=== PATIENT | male | born 1960 | race African-American/Black ===

== ENCOUNTER 2018-02-05 09:11 | Inpatient (IN) | payer MEDICARE, OTHER ==
[2018-02-05] MEDS ORDERED: Furosemide 40 MG/4 ML VIAL ONE (10:05)
--- NOTE | 2018-02-05 10:19 | RAD ---
CHEST ONE VIEW: History: Congestive heart failure. Comparison: 08-19-16 FINDINGS: Heart size is enlarged. Mild venous congestion. No pneumothorax. No acute osseous abnormality. IMPRESSION: Cardiomegaly with mild pulmonary venous congestion. POS: [facility]
[2018-02-05 10:23] LABS: #Basophils 0.1 thou/uL (0.0-0.2); #Eosinphils 0.5 thou/uL (0.0-0.7); #Lymphocytes 1.4 thou/uL (1.20-3.40); #Monocytes 0.5 thou/uL (0.11-0.59); #Neutrophils 3.7 thou/uL (1.40-6.50); %Basophils 1.1 % (0.0-1.0); %Eosinophils 7.7 % (0.0-10.0); %Lymphocytes 23.2 % (21.0-51.0); %Monocytes 8.2 % (0.0-10.0); %Neutrophils 59.8 % (42.0-75.0); Hemoglobin 11.7 g/dL (14.0-18.0); Mean Corpuscular HGB CONC 31.1 g/dL (32.0-36.0); Mean Corpuscular Hemoglobin 28.7 pg (27.0-31.0); Mean Corpuscular Volume 92.4 fL (78.0-98.0); Mean Platelet Volume 8.3 fL (7.4-10.4); Platelet Count 244 thou/uL (130-400); RBC Distribution Width 15.6 % (11.5-14.5); Red Blood Cell (RBC) Count 4.07 mill/uL (4.70-6.10); White Blood Cell (WBC) Count 6.2 thou/uL (4.8-10.8)
[2018-02-05 10:29] LABS: ALT (SGPT) 12 U/L (8-55); AST (SGOT) 23 U/L (5-34); Albumin 3.1 g/dL (3.5-5.0); Alkaline Phosphatase 168 U/L (40-150); Anion Gap 15 mmol/L (10-20); BUN (Urea Nitrogen) 22 mg/dL (8.4-25.7); Bilirubin, Total 1.1 mg/dL (0.2-1.2); Calc. Creatinine Clearance 0 mL/min (70-130); Carbon Dioxide 22 mmol/L (22-29); Chloride 102 mmol/L (98-107); Estimated GFR-MDRD Greater than 90; Globulin 5.8 g/dL (2.4-3.5); Glucose 95 mg/dL (70-105); Protein, Total 8.9 g/dL (6.0-8.3); Sodium 134 mmol/L (136-145)
[2018-02-05] MEDS ORDERED: Ondansetron PF 4 MG/2 ML Vial ONE (11:49)
[2018-02-05] MEDS ORDERED: Morphine 4 MG/ML VIAL ONE ×2 (11:51→13:19)
--- NOTE | 2018-02-05 12:45 | ULT ---
BILATERAL TESTICULAR ULTRASOUND WITH GRAYSCALE, COLORFLOW, AND SPECTRAL DOPPLER IMAGING: HISTORY: Testicular pain and swelling. FINDINGS: The right testis measures 3.4 x 2.5 x 2.4 cm, and the left testis measures 3.9 x 2.8 x 2.[address] sticular mass is seen. No flow is demonstrated to the right testis. Flow is demonstrated to the lef t testis. An associated small right hydrocele is present. Flow is demonstrated to both epididymides. The epididymides appear enlarged and have a heterogeneous echotexture. There is a well circumscribed, complex area in the right epididymis, measuring 3 x 2.9 x 2.7 cm. There is edema of the skin of the scrotum. IMPRESSION: 1. Absence of flow to the right testis, consistent with torsion. 2. Bilaterally enlarged and heterogeneous epididymides with a circumscribed, complex area in the rig ht epididymis, measuring 3 x 2.9 x 2.7 cm. 3. Urologic consultation is recommended. Discussed over the telephone with ER physician, Dr. Maco Moreno, at 12:18 p.m. CODE CR POS: [facility]
[2018-02-05] MEDS ORDERED: Ondansetron PF 4 MG/2 ML Vial IVP PRN (12:49)
[2018-02-05] MEDS ORDERED: Ondansetron ODT 4 MG TAB PO PRN (12:49)
[2018-02-05] MEDS ORDERED: Calcium Carbonate 500 MG ChewTAB PO PRN (12:49)
[2018-02-05] MEDS ORDERED: Acetaminophen 325 MG TAB PO PRN (12:49)
--- NOTE | 2018-02-05 13:31 | HP ---
PRIMARY CARE PHYSICIAN: None. PRIMARY RECEIVER DISPATCHER: Dr. Antonio. CHIEF COMPLAINT: Increased scrotal swelling/pain, shortness of breath, and lower extremity edema. HISTORY OF PRESENT ILLNESS: The patient is a 57-year-old male with chronic systolic heart failure with recent exacerbation at [facility], presented to the emergency room with the above symptoms. Over the last 1 to 2 months, the patient noticed increased shortness of breath along with scrotal swelling. His symptoms are progressively getting worse. He is unable to lie down flat. He also noticed lower extremity swelling. There was some cough, which was essentially nonproductive. No fever or chills reported. He denies any chest pain, palpitations, lightheadedness, or syncope. He states that he is compliant with fluid restriction; however, he does not monitor his weight on a daily basis. He thinks that he has gained approximately 30 to 40 pounds over the last few weeks. He is compliant with all of his medications over the last two years per the patient report. He is on Lasix 40 mg twice a day along with Entresto, Aldactone , and carvedilol. In the emergency room, initial vital signs showed temperature of 97.4, respirations 16, blood pressure of 133/94, pulse rate 82. He currently has 10/10 scrotal pain. PAST MEDICAL HISTORY: 1. Chronic systolic heart failure, ejection fraction 20% to 25% in the past. 2. Hypertension. 3. Diabetes mellitus type 2. 4. Mild coronary artery disease on the last cardiac cath in May of [address] Regan. PAST SURGICAL HISTORY: 1. Right inguinal hernia repair at [facility] 3 weeks ago. 2. Paracentesis. ALLERGIES: THE PATIENT IS ALLERGIC TO PENICILLIN. CURRENT HOME MEDICATIONS: 1. Carvedilol 6.25 mg b.i.d. 2. Metformin 500 mg daily. 3. Entresto 1/2 tablet twice a day. 4. Lasix 40 mg b.i.d. 5. Aldactone 25 mg daily. 6. Aspirin 81 mg daily. SOCIAL HISTORY: He is a former tobacco user. He currently lives at home with his family. He drinks alcohol socially. Denies any history of withdrawal. He denies daily drinking. No drug use. FAMILY HISTORY: Negative for premature coronary artery disease. REVIEW OF SYSTEMS: All other review of systems was reviewed and were found negative. PHYSICAL EXAMINATION: VITAL SIGNS: As discussed above. GENERAL: A 57-year-old male, in mild distress due to scrotal pain as well as shortness of breath. HEENT: Head, atraumatic and normocephalic. Sclerae anicteric. Moist mucous membranes. No oral lesion. NECK: Supple. JVD elevated. No carotid bruit. LUNGS: Showed decreased air entry at bilateral bases with bibasilar rales, scattered rhonchi. No wheezing appreciated. There was mild accessory muscle use. HEART: S1 and S2 present. Regular rate and rhythm, 2/6 systolic murmur over the mitral area. No heaves or pulsation. ABDOMEN: Obese, soft with shifting dullness. EXTREMITIES: 2+ edema in bilateral lower extremities. GENITOURINARY: There is generalized scrotal swelling along with tenderness on palpation. No significant erythema noted. SKIN: Warm and dry. LYMPH NODES: No palpable lymph nodes in the neck. NEUROLOGIC: Grossly nonfocal. Moves all 4 extremities. PSYCHIATRY: Alert, awake, and oriented x3. LABORATORY DATA: CBC showed WBC of 6.2 with hemoglobin 11.7, hematocrit 37.6, and platelet of 244. Chemistry showed sodium 134, potassium 5, chloride 102, bicarbonate 22, BUN 22, creatinine 0.91. BNP 2281. Albumin 3.1, total protein 8.9. DIAGNOSTIC DATA: 1. Chest x-ray by my review showed pulmonary vascular congestion with cardiomegaly. 2. EKG by my review showed sinus rhythm with nonspecific ST-T wave changes. 3. I just received a call from the ER physician stating that the scrotal ultrasound showed no flow to the right testicle. IMPRESSION: 1. Acute on chronic systolic heart failure exacerbation. ACC stage C 2. Significant volume overload. 3. Testicular torsion. 4. Mild coronary artery disease in the last cardiac catheterization in 2016. 5. Former tobacco user. 6. History of cocaine abuse in the past. 7. Chronic alcohol use. 8. Diabetes mellitus type 2. 9. Hypertension. 10. Penicillin allergy. 11. Normochromic normocytic anemia, probably chronic. PLAN: The patient will be monitored on the Telemetry Unit. Vital signs q.4 hourly. IV diuretics. Fluid restriction. Cardiology consultation in a.m. Serial troponins. We will resume selected home medications. Urology consultation. Heart failure education. Plan of care was discussed with the patient in detail. He stated understanding. Job ID: [id number] [facility]
[2018-02-05] MEDS ORDERED: Furosemide 40 MG/4 ML VIAL SLOW IVP SCH (14:00)
[2018-02-05] MEDS: Furosemide 40 MG/4 ML VIAL SLOW IVP SCH ×2 (17:02→21:06)
[2018-02-05 17:56] LABS: Bilirubin Negative (Negative); Blood, Urine Trace (Negative); Clarity CLEAR (Clear); Glucose, Urine (Dipstick) Negative (Negative); Leukocyte Negative (Negative); Nitrite Negative (Negative); Protein, Urine (Dipstick) Trace mg/dL (Neg-Trace); Specific Gravity, Urine 1.011 (1.002-1.036)
[2018-02-05 18:07] LABS: Amphetamine Not Detected (NotDetected); Barbiturates Screen Not Detected (NotDetected); Benzodiazepine Screen Not Detected (NotDetected); Cocaine Metabolite Screen Not Detected (NotDetected); Medtox Control Line Valid? VALID (VALID); Medtox Reader # READER 1; Methadone Not Detected (NotDetected); Methamphetamine Not Detected (NotDetected); Opiate Screen Detected (NotDetected); Oxycodone Screen Not Detected (NotDetected); Phencyclidine (PCP) Not Detected (NotDetected); THC/Cannabinoid Screen Not Detected (NotDetected); Tricyclic Screen Not Detected (NotDetected)
[2018-02-05 18:09] LABS: Bacteria/HPF None Seen HPF (None Seen); Hyaline Casts/LPF 4-6 HYALINE CAST LPF (0-3 Hyaline); Pathc Cast-AUWi Flag 1.01 (0-2.49); RBC/HPF 0-3 HPF (0-3); Squamous Epithelial None Seen HPF (0-3); WBC/HPF 0-3 HPF (0-3)
--- NOTE | 2018-02-05 20:52 | CON ---
DATE OF CONSULTATION: 02/05/2018 REASON FOR CONSULT: Scrotal swelling. HISTORY OF PRESENT ILLNESS: Mr. Shelby is a 57-year-old male with history of hepatitis B, alcohol abuse, diabetes, history of cocaine abuse, CHF, who presents for evaluation of bilateral scrotal discomfort, mostly Left .The patient presents with his . He states that he underwent right inguinal hernia repair at [facility], in which they do not recall the name of the physician approximately three weeks ago. Subsequently, the patient has had scrotal swelling. Relates that the size of the scrotum was approximately half the size as he presents with on today's exam. Due to progressive swelling resulting in scrotal discomfort he presents to the emergency room. relates that he was told by the surgeon who performed inguinal hernia surgery that he is very high risk for anesthesia. Of note, relates that his scrotal swelling has been presenting enlargements previously with exacerbation of CHF, which usually resolves with aggressive diuresis. He states that there is left scrotal discomfort more than right. He denies sensation of incomplete void, however, has been urinating into his scrotal penile skin as there is significant penile scrotal edema consistent with CHF/anasarca. He denies prior history of gross hematuria, recurrent UTI. Records from his prior admission reviewed which he was admitted in May 2015. He was found to have severe CHF with EF of 25%, found to have hepatitis B with history of cirrhosis, his RPR, hepatitis, hepatitis C panel is negative. His chest x-ray does show cardiomegaly and has previously seen Dr. Regan. Workup on this admission through the ER demonstrates normal white count. Creatinine is normal. He is afebrile with no evidence of toxic or septic parameters. He is currently resting comfortably, however, has discomfort on palpation of the scrotum. A scrotal ultrasound was obtained by ER physician demonstrating no significant flow to the right testis. He denies having pain in his right scrotum testicular region. Most of this discomfort is related to the swelling due to anasarca, scrotal edema. PAST MEDICAL HISTORY: Includes diabetes, poorly controlled. History of CHF with EF of 20% to 25%, history of cocaine abuse, cirrhosis, hepatitis, type 2 diabetes, alcohol abuse, history of pleural effusion, hypoxia, hypertension, history of cocaine abuse. PAST SURGICAL HISTORY: Recent right inguinal hernia repair in December 2017 at [facility]. ALLERGIES: ALLERGIC TO PENICILLIN. REVIEW OF SYSTEMS: A 10-point review of systems as above, he is currently with his , history of substance abuse, cocaine. PHYSICAL EXAMINATION: VITAL SIGNS: 131/96, 84, 16, 97%. GENERAL: The patient appears to be in no acute distress. HEENT: Grossly unremarkable. HEART: Rate is regular. LUNGS: Distant. ABDOMEN: Morbidly obese, protuberant. There is evidence of pitting edema along his lower back flank consistent with diffuse anasarca. : Demonstrates significant scrotal and penile edema consistent with anasarca. The testes are unable to palpated due to degree of pitting edema. There is no evidence of skin breakdown, cellulitis, erythema, fluctuance consistent with Carlotta gangrene. I am unable to reduce the foreskin despite manual decompression of the lymphedema. EXTREMITIES: Demonstrate bilateral pitting edema with venous stasis changes. ALE suboptimal with no gross nodularity or induration. LABORATORY DATA: Pertinent labs; 1. White count 6, hemoglobin 11, platelet 244. Creatinine is 0.9. Hemoglobin A1c from May 2015 is 10.5. INR on September 04 is 1.4. Prior urine culture demonstrating Staph aureus with UA in May 2015 demonstrating 100 protein, 11 to 20 rbc's. 2. History of hepatitis B antigen positive, hepatitis C, RPR, hepatitis negative. 3. Scrotal ultrasound. Absence of flow to the right testis. Flow is present on the left. There is a small right hydrocele. There is a complex right epididymal cyst measuring 3 x 2.9 x 2.7 cm with no evidence of scrotal, testicular epididymal abscess at this time. IMPRESSION AND PLAN: Mr. Shelby is a 57-year-old male with morbid obesity with past medical history. 1. Diabetes. 2. History of severe congestive heart failure with EF of 25%. 3. History of cocaine abuse, likely cardiomyopathy. presents with scrotal swelling/ discomfort scrotal ultrasound demonstrating no significant flow to the right testis. Timeline is such that I cannot completely exclude compromise of blood flow compounded by right inguinal hernia repair, significant scrotal edema resulting from anasarca due to congestive heart failure resulting in further vascular compromise. As he has significant penile and scrotal pitting edema consistent with anasarca, I do recommend cardiac consultation, aggressive diuresis, and strict control of his diabetes. I informed the patient that he is very high risk for surgery given his comorbidities. Moreover, wound complication is of significant concern. 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 torsion in this patient population would be extremely rare, and unlikely. Indications for surgical exploration, orchiectomy reviewed. Due to chronic nature, salvage orchidopexy not advised. Removal of avascularity testes would be performed to prevent infertility due to antisperm body formation , or chronic pain of concern. He is in full understanding the repercussions of natural history of progression that there will be resulting in testicular atrophy.. If there is life-threatening infection concerning surgery would be rediscussed. At this time, due to his comorbidities, significant wound complication in which he will require chronic wound VAC with prolonged wound drainage due to lymphedema. Risks and complications of procedure reviewed and the patient declines surgical intervention. I did spend significant amount of time trying to pass a Simpson catheter as he needs aggressive diuresis and he has been urinating into his scrotal penile skin. It required two nurse manual reduction to assist putting a Simpson catheter in. I attempted to decompress this lymphedema without avail. Therefore, we used a speculum, in which I would visualize his glans meatus and a 16-Wolof coude was finally able to be passed. Once in the urethra , I had no problems putting in the catheter with postvoid residual minimal at 100 mL of concentrated yellow urine. This was attached to gravity bag, which he tolerated. UA, C and S sent. Recommend empiric antibiotic therapy i.e. Levaquin. I recommend cardiac rehab, consultation, diurese aggressively with strict control of diabetes. If he has no evidence of infection compromise, conservative observation would be the best approach in this comorbid patient. Job ID: [id number] [facility]
[2018-02-05] MEDS: Senokot S 8.6-50 MG TAB PO SCH (21:06)
[2018-02-05] MEDS: Carvedilol 3.125 MG TAB PO SCH (21:06)
[2018-02-05] MEDS: HYDROcodone/Acetaminophen 5/325 mg Tablet PO PRN (21:11)
[2018-02-06] MEDS: HYDROcodone/Acetaminophen 5/325 mg Tablet PO PRN ×3 (03:32→16:36)
[2018-02-06 03:51] VITALS: BMI 32.8
[2018-02-06 05:42] LABS: #Eosinphils 0.4 thou/uL (0.0-0.7); #Lymphocytes 1.1 thou/uL (1.20-3.40); #Monocytes 0.5 thou/uL (0.11-0.59); #Neutrophils 3.8 thou/uL (1.40-6.50); %Basophils 0.4 % (0.0-1.0); %Eosinophils 7.5 % (0.0-10.0); %Lymphocytes 18.5 % (21.0-51.0); %Monocytes 8.8 % (0.0-10.0); %Neutrophils 64.9 % (42.0-75.0); Hemoglobin 10.7 g/dL (14.0-18.0); Mean Corpuscular HGB CONC 30.9 g/dL (32.0-36.0); Mean Corpuscular Hemoglobin 28.3 pg (27.0-31.0); Mean Corpuscular Volume 91.7 fL (78.0-98.0); Mean Platelet Volume 8.2 fL (7.4-10.4); Platelet Count 223 thou/uL (130-400); RBC Distribution Width 15.5 % (11.5-14.5); Red Blood Cell (RBC) Count 3.78 mill/uL (4.70-6.10); White Blood Cell (WBC) Count 5.8 thou/uL (4.8-10.8)
[2018-02-06 05:56] LABS: ALT (SGPT) 9 U/L (8-55); AST (SGOT) 15 U/L (5-34); Albumin 2.5 g/dL (3.5-5.0); Alkaline Phosphatase 137 U/L (40-150); Anion Gap 10 mmol/L (10-20); BUN (Urea Nitrogen) 25 mg/dL (8.4-25.7); Bilirubin, Total 0.9 mg/dL (0.2-1.2); Calc. Creatinine Clearance 123 mL/min (70-130); Calcium 8.2 mg/dL (7.8-10.44); Carbon Dioxide 31 mmol/L (22-29); Chloride 101 mmol/L (98-107); Estimated GFR-MDRD Greater than 90; Globulin 4.6 g/dL (2.4-3.5); Glucose 84 mg/dL (70-105); Magnesium 1.8 mg/dL (1.6-2.6); Potassium 4.3 mmol/L (3.5-5.1); Protein, Total 7.1 g/dL (6.0-8.3); Sodium 138 mmol/L (136-145)
[2018-02-06] MEDS: Furosemide 40 MG/4 ML VIAL SLOW IVP SCH ×3 (06:20→21:20)
--- NOTE | 2018-02-06 07:30 | CON ---
DATE OF CONSULTATION: 02/05/2018 CARDIOLOGY CONSULT PRIMARY CARE DOCTOR: Unknown. The patient's rn residential is Dr. Antonio. The patient's primary rn residential in [place] is going to be Dr. Regan. REASON FOR CARDIOLOGY CONSULT: Heart failure, congestive heart failure exacerbation. HISTORY OF PRESENT ILLNESS: Mr. Shelby is a 57-year-old -[place] male with significant history of chronic systolic heart failure, hypertension, and diabetes type 2. The patient presented to the emergency department for enlarged and a painful scrotum for 3 days with worsening of shortness of breath, edema in the lower extremities, and distended stomach. The patient was discharged from [facility] about 3 weeks ago for swelling and shortness of breath. The patient underwent paracentesis with 5 liters output. The patient stayed in [facility] for 4 to 5 days and the patient was discharged. Since then, he had not watched his salt and fluid intake. He usually drank 1 gallon of fluid intake with 1 to 3 beers a day. The patient stated that he gained 15 pounds since the patient was discharged from [facility] 3 weeks ago. He has followed up with Dr. Antonio, who is the patient's primary rn residential at the [facility] after the discharged. The patient's Entresto was cut down to half tablet twice a day and Lasix with unknown dosage twice a day. The patient had the last echocardiogram done at Dr. Antonio's office about 3 weeks ago. The patient was told that his heart was more weaker than before, but the patient was not a candidate for defibrillator at that time. At this moment, the patient was very drowsy secondary to morphine administration at the ER to control the pain and management for the enlargement of scrotum. At this moment, the patient denies shortness of breath, palpitation, fluttering in his chest, discomfort, chest pain or any other cardiac complaints. He has swelling in the left arm for 4 weeks. He reports that his arm was swelling since he received IV fluids at the [facility]. He denies any numbness or tingling to the arm. The patient had a cardiac catheterization in May 2015 with mild coronary artery disease with EF of 25% with global hypokinesis, severe hypokinesis in inferior wall. Echocardiogram done in May 2015 shows EF 25% to 30%, dilated left ventricle, dilated left atrium, and a mild mitral valve regurgitation. Echocardiogram was ordered on this admission and the results are pending at this moment. PAST MEDICAL HISTORY: Chronic systolic heart failure, hypertension, diabetes type 2, and history of UTI. PAST SURGICAL HISTORY: Right inguinal hernia repair about 3 weeks ago at [facility], status post paracentesis with 5 L output about 3 weeks ago at [facility]. FAMILY HISTORY: The patient's mother and the siblings has medical history of hypertension and diabetes, but not paternal side. SOCIAL HISTORY: The patient is . The patient has 3 children, who are living well. The patient is an ex-smoker, quit in 2017. He drinks at least 1 to 3 beers almost every day. He is an ex-illicit drug abuser, but quit about 1 year ago. He did cocaine use one time and he mostly used marijuana. Prior to this admission, he had a sedentary lifestyle. ALLERGIES: THE PATIENT IS ALLERGIC TO PENICILLIN. MEDICATIONS: 1. Metformin 500 mg daily. 2. Carvedilol 6.25 mg twice a day. 3. Entresto unknown dosage half tablet twice a day. 4. Aldactone 25 mg once a day. 5. Aspirin 81 mg once a day. REVIEW OF SYSTEMS: A 12-point review of systems negative unless otherwise mentioned in the HPI. PHYSICAL EXAMINATION: VITAL SIGNS: Blood pressure 123/86, temperature 97.6, pulse 77, respiratory rate 16, and O2 sat 98% on room air. GENERAL: The patient is alert and oriented x4, in no acute distress, kind of drowsy secondary to morphine administration for pain management at his scrotum. HEENT: Head; normocephalic, atraumatic. Eyes; extraocular muscle movements are intact. ENT and mouth, oral and nasal mucosa are moist without lesions. NECK: Supple. Normal range of motion. JVD is elevated. RESPIRATORY: Clear to auscultation bilaterally, but diminished at the bases. No wheezing, rhonchi, or rales noted. CARDIOVASCULAR: Regular rate and rhythm. Normal S1, S2. There are no S3 or S4, significant murmurs, heaves, or thrill noted. Carotid pulses are present without bruit or thrill. Non-pitting edema to the left forearm and 3+ pitting edema to the bilateral thigh. ABDOMEN: Very distended, but the bowel sounds are present. SKIN: Warm and dry. Really dry skin in bilateral lower extremities and discoloration. MUSCULOSKELETAL: The patient is unable to move all extremities due to the severe pain to the scrotum. The patient is able to move the upper extremities without any difficulties. PSYCHIATRIC: The patient's mood is very depressed. NEUROLOGIC: The patient is alert and oriented x4, and nonfocal. LABORATORY DATA: WBC 6.2, hemoglobin 11.7, hematocrit 37.6, platelets 244. Sodium 134, potassium 5.0, BUN 22, creatinine 0.91, magnesium 1.7, AST 23, ALT 12, alkaline phosphatase 168. Troponin is negative x2. BNP is more than 2000. Chest x-ray shows cardiomegaly with mild pulmonary congestion. A testicular ultrasound shows absence of flow to right testicle consistent with torsion and bilaterally enlarged heterogeneous epididymis. Urology consult is recommended. ASSESSMENT AND PLAN: 1. Acute on chronic systolic heart failure. The patient's condition is stable at this moment after the patient received Lasix IV. The patient's echocardiogram is pending at this moment. The patient is on Lasix 40 mg IV push every 8 hours with lisinopril 2.5 mg once a day and carvedilol 3.125 mg twice a day, which will be adjusted as appropriate and if the patient can tolerate. When we would like to resume Entresto, we will stop Lisinopril for 36 hours. 2. Scrotal swelling and pain with no flow to the right testicle. Urology consult was already ordered. 3. Hypertension. The patient's blood pressure is stable at this moment with the current medication. 4. Diabetes type 2; He is not on any medication for the diagnosis right now. The patient is going to be on a.c. and bedtime blood glucose checks, which is going to be managed by the patient's primary care doctor. 5. Ex-smoker. Smoking cessation education given to the patient. Thank you for allowing the Cardiology Service to participate in the care of this patient. We will follow along the patient's care team and make further recommendation as appropriate. Job ID: [id number] [facility]
--- NOTE | 2018-02-06 07:36 | CON ---
DATE OF CONSULTATION: 02/05/2018 ADDENDUM: INDICATION FOR CONSULTATION: A 57-year-old gentleman with nonischemic cardiomyopathy with congestive heart failure exacerbation. HISTORY OF PRESENT ILLNESS: This very unfortunate 57-year-old gentleman was seen by Dr. Regan a couple of years ago, underwent cardiac catheterization, was found to have only mild coronary artery disease, was found to have severe cardiomyopathy. He has had worsening of his lower extremity edema. He has chronic edematous changes. He also has significant ascites. He apparently recently underwent a paracentesis, where significant amount of fluid was removed, but he presents at this time complaining of more worsening shortness of breath. I believe he was recently also in the [facility] for evaluation and underwent some diuresis at that time. He has had severe decrease in his left ventricular systolic function and he was seen for further evaluation and treatment here in our facility after being seen in the emergency room and admitted for further treatment. PAST MEDICAL HISTORY: Significant for ischemic and nonischemic cardiomyopathy, hypertension, diabetes. PAST SURGICAL HISTORY: He has no significant surgical history except for what is noted with paracentesis. ALLERGIES: PENICILLIN. MEDICATIONS: Include; 1. Levofloxacin. 2. Lasix 40 mg IV q.8 hours. 3. Aspirin 81 mg a day. 4. Coreg 3.125 mg b.i.d. 5. Lisinopril 2.5 mg daily. 6. He is on Flomax 0.4 mg daily. 7. P.r.n. medications. SOCIAL HISTORY: He did use illicit drug use in the past. He smoked until about a year ago and he said he stopped smoking altogether, once he was sober about 2 to 3 years ago actually at the time of his cardiac catheterization, he said he stopped smoking. He did drink heavily in the past, but now he says he only drinks couple of beers a day and I believe he has not been compliant with his fluid intake either. REVIEW OF SYSTEMS: Mainly, he complains of lower extremity edema, swelling, shortness of breath. Otherwise, he has had no nausea, vomiting, or diarrhea. He has had no complaints from wheezing or recent upper respiratory tract infections. He has had no seizures or syncope. PHYSICAL EXAMINATION: GENERAL: Reveals an elderly gentleman, who is in no acute distress at this time. He is alert. He is oriented. VITAL SIGNS: Show blood pressure 123/86, heart rate 77, he is afebrile, respiratory rate is 16, and O2 saturation 98%. HEENT: Shows head to be normocephalic, atraumatic. Carotid pulses are present. I do not hear any significant bruits. CHEST: Actually appears to be relatively clear to auscultation. I did not hear any rales, rhonchi, or wheezing. CARDIOVASCULAR: Reveals a regular rate and rhythm at this time. There were no significant murmurs, heaves, thrills, bruits, or rubs. ABDOMEN: Shows obesity with ascites. He has some distention. The abdominal wall is tense. EXTREMITIES: Show chronic edema in both lower extremities, at least 2 to 3+. He has chronic changes in the lower legs. I cannot palpate pedal pulses. NEUROLOGICAL: The patient does appear to be intact. SKIN: Warm and dry at this time. LABORATORY DATA: His EKG shows hemoglobin 11.7, platelet count 244,000, WBC of 6.2. Potassium is 5, his sodium is 134. His BNP is 2281, creatinine is 0.91. His chest x-ray did show some mild pulmonary congestion with cardiomegaly. His EKG shows normal sinus rhythm. He apparently also has been found to have a torsion of the right testicle by ultrasound with some edema. IMPRESSION: 1. Acute on chronic systolic and most likely also diastolic heart failure, stage III. He has significant ascites and volume overload with lower extremity edema. 2. History of mild coronary artery disease. This appears to be stable. It is unlikely that he has had any significant progression of his disease. 3. History of illicit drug use in the past, which may be the etiology of his nonischemic cardiomyopathy. 4. History of continued alcohol use. He has been advised at this time to stop drinking altogether. 5. Diabetes. This will be dealt with by the primary care service. 6. History of testicular torsion. Consultation for Urology has been requested. At this time, it appeared that we reduced some of his ascites and lower extremity edema. Apparently, his last ejection fraction was around 20% to 25%. Dr. Regan will resume his care tomorrow. At this time, we will continue to diurese the patient with the above medications. Job ID: [id number]
[2018-02-06] MEDS: Lisinopril 2.5 MG TAB PO SCH (09:06)
[2018-02-06] MEDS: Carvedilol 3.125 MG TAB PO SCH ×2 (09:06→21:15)
[2018-02-06] MEDS: Aspirin 81 mg Enteric Coated Tablet PO SCH (09:06)
[2018-02-06] MEDS: Senokot S 8.6-50 MG TAB PO SCH ×2 (09:06→21:17)
[2018-02-06] MEDS: Tamsulosin HCl 0.4 MG CAP PO SCH (09:06)
--- NOTE | 2018-02-06 11:07 | PRG ---
DATE OF SERVICE: 02/06/2018 SUBJECTIVE: The patient is resting comfortably. Denies scrotal pain, chills, or fever. Resting comfortably, at bedside. Urine draining uneventfully. OBJECTIVE: VITAL SIGNS: Stable. He is afebrile. ABDOMEN: Morbidly obese, protuberant as previous, demonstrating pitting edema of the abdominal musculature consistent with anasarca. : He has a very large scrotal lymphedema due to CHF exacerbation / anasarca. There is some contracture of his left scrotal skin due to diuresis. His scrotum remains very large in size due to pitting edema. There is no gross fluctuance, crepitus, or cellulitic changes of concern. EXTREMITIES: Demonstrate chronic venous stasis changes. PERTINENT LABORATORY DATA: White count 5.8, hemoglobin 10, and platelets 233. Creatinine 0.9. UA is negative. IMPRESSION AND PLAN: Mr. Shelby is a 57-year-old male with past medical history of; 1. Diabetes. 2. Congestive heart failure. 3. History of hepatitis B. 4. Recent right inguinal hernia surgery at [facility]. 5. Presented with bilateral scrotal swelling, consistent with anasarca, scrotal edema due to fluid overload. Although the patient is not in retention, he has been urinating in his prepuce and scrotal skin due to massively enlarged scrotal swelling. He has a Simpson catheter placed by yesterday for anticipated aggressive diuresis as he is on Lasix 40mg q.8. Once his anasarca and scrotal edema have improved , catheter can be removed. If there is persistent swelling, this will most likely stay in- situ for few days, as he is been voiding into his prepuce/genital skin. 6. Right avascular testis. This is likely multifactorial with recent right inguinal hernia surgery, may have had a vascular compromise. Torsion is extremely rare in this age bracket. Given his significant comorbidities, moreover no evidence of septic parameters, conservative observation advised, which the patient agrees. He is in full understanding that he remains a significant surgical risk due to cardiac comorbidities, moreover, nonhealing wound of his scrotum due to significant lymphedema agree requiring prolonged wound VAC. No indication to explore surgically given his age, no issues with infertility, moreover not having any pain in the right scrotum/ testis. Aggressive diuresis is advised. Consider palliative care consult as he has severe congestive heart failure, ejection fraction of 20%. Job ID: [id number] [facility]
--- NOTE | 2018-02-06 14:15 | EKG ---
Test Reason : Blood Pressure : / mmHG Vent. Rate : 081 BPM Atrial Rate : 081 BPM P-R Int : 170 ms QRS Dur : 084 ms QT Int : 394 ms P-R-T Axes : 057 025 106 degrees QTc Int : 457 ms Normal sinus rhythm Low voltage QRS Lateral T wave inversion Abnormal ECG Confirmed by ARYAN DUKE DO ([id number]), assignment editor DAVY MARIO ([id number]) on 02/06/2018 2:14:37 PM Referred By: Confirmed By:ARYAN DUKE DO
--- NOTE | 2018-02-06 15:21 | PDOC.PN ---
- Subjective Encounter Start Date: 02/06/18 Encounter Start Time: 09:30 Patient seen and examined for CHF. SOB improving. No new complaints. No overnight events - Objective Resuscitation Status - Order Detail: 02/05/18 12:49 Resuscitation Status Routine Resuscitation Status: FULL: Full Resuscitation MAR Reviewed: Yes Vital Signs & Weight: Vital Signs (12 hours) Temp Pulse Resp BP Pulse Ox 02/06/18 08:30 96 02/06/18 07:34 93 L 02/06/18 07:30 98.1 F 76 16 125/70 94 L Weight Weight 216 lb 1.6 oz I&O: 02/05/18 02/06/18 02/07/18 06:59 06:59 06:59 Intake Total 768 Output Total 2125 Balance -1357 Result Diagrams: 02/06/18 04:22 02/06/18 04:22 Additional Labs: Accuchecks 02/06/18 02/06/18 02/05/18 10:44 05:45 20:47 POC Glucose 87 84 109 EKG Reviewed by me: Yes (Tele SR) Phys Exam - Physical Examination Constitutional: NAD Respiratory: no wheezing B/L LE rales with dec AE at bases, scat rhonchi Cardiovascular: RRR, no rub Gastrointestinal: soft, non-tender, positive bowel sounds Musculoskeletal: edema present Neurological: moves all 4 limbs Dx/Plan - Plan DVT proph w/lovenox, DVT proph w/SCDs 1. Acute on chronic systolic heart failure exacerbation. ACC stage C 2. Significant volume overload. 3. Testicular torsion. 4. Mild coronary artery disease in the last cardiac cath in 2016. 5. Former tobacco user. 6. History of cocaine abuse in the past. 7. Chronic alcohol use. 8. Diabetes mellitus type 2. 9. Hypertension. 10. Penicillin allergy. 11. Normochromic normocytic anemia, probably chronic. 12. BPH PLAN: Cont IV Lasix Cont Coreg and ACEI Cont Atbx Cont sliding scale Cont current meds as below AM labs Review of Systems - Review of Systems Respiratory: SOB with Excertion. negative: Cough, Dry, Shortness of Breath, Hemoptysis, Pleuritic Pain, Sputum, Wheezing Cardiovascular: edema. negative: chest pain, palpitations, orthopnea, paroxysmal nocturnal dyspnea, light headedness, other Gastrointestinal: negative: Nausea, Vomiting, Abdominal Pain, Diarrhea, Constipation, Melena, Hematochezia, Other - Medications/Allergies Allergies/Adverse Reactions: Allergies Allergy/AdvReac Type Severity Reaction Status Date / Time Penicillins Allergy Verified 05/22/15 04:55 Medications: Current Medications Acetaminophen (Tylenol) 650 mg PO Q4H PRN PRN Reason: Headache/Fever/Mild Pain (1-3) Hydrocodone Bitart/Acetaminophen ([place] 5/325) 1 tab PO Q6H PRN PRN Reason: Moderate Pain (4-6) Last Admin: 02/06/18 09:05 Dose: 1 tab Aspirin (Ecotrin) 81 mg PO DAILY [facility] Last Admin: 02/06/18 09:06 Dose: 81 mg Calcium Carbonate (Tums) 1,000 mg PO Q4H PRN PRN Reason: Heartburn or Indigestion Carvedilol (Coreg) 3.125 mg PO BID [facility] Last Admin: 02/06/18 09:06 Dose: 3.125 mg Furosemide (Lasix) 40 mg SLOW IVP Q8HR [facility] Last Admin: 02/06/18 14:06 Dose: 40 mg Levofloxacin 500 mg/ Device 100 mls @ 100 mls/hr IVPB Q24HR [facility] Last Admin: 02/06/18 14:09 Dose: 100 mls Lisinopril (Zestril) 2.5 mg PO DAILY [facility] Last Admin: 02/06/18 09:06 Dose: 2.5 mg Ondansetron HCl (Zofran Odt) 4 mg PO Q6H PRN PRN Reason: Nausea/Vomiting Ondansetron HCl (Zofran) 4 mg IVP Q6H PRN PRN Reason: Nausea/Vomiting Senna/Docusate Sodium (Senokot S) 2 tab PO BID [facility] Last Admin: 02/06/18 09:06 Dose: Not Given Sodium Chloride (Flush - Normal Saline) 10 ml IVF PRN PRN PRN Reason: Saline Flush Last Admin: 02/06/18 06:21 Dose: 10 ml Tamsulosin HCl (Flomax) 0.4 mg PO DAILY [facility] Last Admin: 02/06/18 09:06 Dose: 0.4 mg
--- NOTE | 2018-02-06 20:28 | PRG ---
DATE OF SERVICE: 02/06/2018 SUBJECTIVE: Mr. Shelby is a 57-year-old gentleman with nonischemic cardiomyopathy, had been seen by Dr. Antonio. Unfortunately, he was unable to get the Entresto. Was admitted with refractory heart failure. He is diuresing moderately now. OBJECTIVE: VITAL SIGNS: His blood pressure 125/70 and pulse 76. LUNGS: Clear. CARDIAC: Normal S1 and normal S2. ABDOMEN: Soft and nontender. EXTREMITIES: Ivqynwaw-ua-cuofbt edema. ASSESSMENT: 1. Nonischemic cardiomyopathy. 2. Continued alcohol intake. 3. Unfortunately, unable to afford the Entresto. PLAN: He is on diuretics along with PHILLY inhibitors and low-dose beta blockers. Repeat echocardiogram for ejection fraction. Prognosis appears poor. He will follow up with Dr. Antonio. Job ID: [id number] MTDD
[2018-02-07] MEDS: HYDROcodone/Acetaminophen 5/325 mg Tablet PO PRN ×4 (00:01→23:43)
[2018-02-07 05:26] LABS: #Eosinphils 0.4 thou/uL (0.0-0.7); #Lymphocytes 1.2 thou/uL (1.20-3.40); #Monocytes 0.6 thou/uL (0.11-0.59); #Neutrophils 4.2 thou/uL (1.40-6.50); %Basophils 0.4 % (0.0-1.0); %Eosinophils 5.9 % (0.0-10.0); %Lymphocytes 19.1 % (21.0-51.0); %Monocytes 8.7 % (0.0-10.0); Hemoglobin 10.7 g/dL (14.0-18.0); Mean Corpuscular HGB CONC 31.3 g/dL (32.0-36.0); Mean Corpuscular Hemoglobin 28.7 pg (27.0-31.0); Mean Corpuscular Volume 91.8 fL (78.0-98.0); Mean Platelet Volume 8.4 fL (7.4-10.4); Platelet Count 222 thou/uL (130-400); RBC Distribution Width 15.2 % (11.5-14.5); Red Blood Cell (RBC) Count 3.72 mill/uL (4.70-6.10); White Blood Cell (WBC) Count 6.4 thou/uL (4.8-10.8)
[2018-02-07 05:44] LABS: ALT (SGPT) 10 U/L (8-55); AST (SGOT) 17 U/L (5-34); Albumin 2.6 g/dL (3.5-5.0); Alkaline Phosphatase 130 U/L (40-150); Anion Gap 13 mmol/L (10-20); BUN (Urea Nitrogen) 28 mg/dL (8.4-25.7); Bilirubin, Total 0.7 mg/dL (0.2-1.2); Calc. Creatinine Clearance 95 mL/min (70-130); Calcium 8.6 mg/dL (7.8-10.44); Carbon Dioxide 30 mmol/L (22-29); Chloride 100 mmol/L (98-107); Estimated GFR-MDRD 76; Globulin 4.7 g/dL (2.4-3.5); Glucose 80 mg/dL (70-105); Magnesium 1.8 mg/dL (1.6-2.6); Potassium 4.3 mmol/L (3.5-5.1); Protein, Total 7.3 g/dL (6.0-8.3); Sodium 139 mmol/L (136-145)
[2018-02-07] MEDS: Furosemide 40 MG/4 ML VIAL SLOW IVP SCH ×3 (05:51→21:20)
[2018-02-07] MEDS: Aspirin 81 mg Enteric Coated Tablet PO SCH (08:54)
[2018-02-07] MEDS: Lisinopril 2.5 MG TAB PO SCH (08:54)
[2018-02-07] MEDS: Carvedilol 3.125 MG TAB PO SCH ×2 (08:54→21:20)
[2018-02-07] MEDS: Tamsulosin HCl 0.4 MG CAP PO SCH (08:54)
[2018-02-07] MEDS: Senokot S 8.6-50 MG TAB PO SCH ×2 (08:54→21:21)
--- NOTE | 2018-02-07 10:04 | PRG ---
DATE OF SERVICE: 02/07/2018 SUBJECTIVE: The patient without complaints, he denies scrotal discomfort, fever , or chills. OBJECTIVE: VITAL SIGNS: Stable. He is afebrile. I's and O's 1320 in and 1950 out. ABDOMEN: Morbidly obese, protuberant, consistent with ascites. : Exam demonstrates as previous significantly edematous scrotum consistent with anasarca. There is some contracture of the scrotal skin consistent with diuresis. Simpson catheter is adequately secured and draining. LABORATORY DATA: Labs today demonstrate no evidence of leukocytosis of concern. Creatinine 1.9 and albumin 2.6. UA demonstrates no evidence of bacteria. Culture demonstrates Staph aureus, pansensitive except to Zosyn. IMPRESSION AND PLAN: Mr. Shelby is a 57-year-old male with past medical history of; 1. Diabetes. 2. Severe congestive heart failure, likely drug-induced, with history of cocaine abuse, significantly depressed ejection fraction 20%, followed by Dr. Antonio. 3. History of hepatitis B. 4. History of right inguinal hernia surgery at [facility]. 5. History of ascites, status post paracentesis of 5 L removed at [facility] 12/2017 6. Urologic issues of bilateral scrotal swelling consistent with anasarca, scrotal edema due to fluid overload. 7. Incidental right avascular testis, likely multifactorial: Recent inguinal surgery, significant ascites, anasarca. Nevertheless, he has no symptoms of toxicity or compromise from avascular right testis. His complaint is scrotal tenderness, mostly on the left at the skin level due to significant edema. I informed the patient again re high risk for surgical intervention. There is no indication to remove his right testicle given chronic avascularity with no evidence of significant pain related to the right testis. Moreover, if surgical intervention, he will most likely have a nonhealing wound in his scrotum due to anasarca, chronic congestive heart failure ascites. Due to severely depressed ejection fraction, it would be prudent to consult Palliative Care. The patient informed and agrees. Patient is not in retention. Simpson catheter may continue until aggressive diuresis, improved scrotal edema. Job ID: [id number] [facility]
[2018-02-07] MEDS ORDERED: Metolazone 5 MG TAB PO SCH (10:15)
--- NOTE | 2018-02-07 11:04 | PRG ---
DATE OF SERVICE: SUBJECTIVE: Mr. Shelby is feeling somewhat better. He is diuresing adequately. He is not short of breath. No chest pain. OBJECTIVE: VITAL SIGNS: The I and O are only -630 mL, his weight is only down a pound, his blood pressure 124/72. LUNGS: Clear. CARDIAC: Normal S1. Normal S2. ABDOMEN: Soft, nontender. EXTREMITIES: Moderate edema. ASSESSMENT: Severe cardiomyopathy, clinically. PLAN: 1. Echocardiogram is pending. 2. Apparently, he is not really diuresing very well. We will review echocardiogram. Add metolazone while in the hospital. He would not go home on metolazone. Job ID: [id number]
[2018-02-07] MEDS ORDERED: Potassium Chloride 20 MEQ TAB PO SCH (20:00)
--- NOTE | 2018-02-07 21:41 | PDOC.PN ---
- Subjective Encounter Start Date: 02/07/18 Encounter Start Time: 13:00 Patient seen and examined for CHF. No new complaints. No overnight events - Objective Resuscitation Status - Order Detail: 02/05/18 12:49 Resuscitation Status Routine Resuscitation Status: FULL: Full Resuscitation MAR Reviewed: Yes Vital Signs & Weight: Vital Signs (12 hours) Temp Pulse Resp BP BP Pulse Ox 02/07/18 16:13 97.9 F 78 17 101/70 99 02/07/18 15:45 98.0 F 71 16 114/71 98 02/07/18 11:52 98.1 F 74 16 113/71 97 Weight Weight 215 lb 14.4 oz I&O: 02/06/18 02/07/18 02/08/18 06:59 06:59 06:59 Intake Total 768 1320 460 Output Total 0480 1950 1400 Balance -1357 -630 -940 Result Diagrams: 02/08/18 04:17 02/08/18 04:17 Additional Labs: Accuchecks 02/07/18 02/07/18 02/07/18 17:01 11:15 05:43 POC Glucose 94 102 70 EKG Reviewed by me: Yes (Tele SR) Phys Exam - Physical Examination Constitutional: NAD Respiratory: no wheezing, no rhonchi Cardiovascular: RRR, no rub Gastrointestinal: soft, non-tender, positive bowel sounds Musculoskeletal: edema present Neurological: non-focal Dx/Plan - Plan DVT proph w/lovenox, DVT proph w/SCDs 1. Acute on chronic systolic heart failure exacerbation. ACC stage C 2. Significant volume overload. 3. Avascular Rt testis. 4. Mild coronary artery disease in the last cardiac cath in 2016. 5. Former tobacco user. 6. History of cocaine abuse in the past. 7. Chronic alcohol use. 8. Diabetes mellitus type 2. 9. Hypertension. 10. Penicillin allergy. 11. Normochromic normocytic anemia, probably chronic. 12. BPH PLAN: Cont IV Lasix Metolazone added today Start Lovenox for DVT prophylaxis in AM Cont Coreg/ACEI Cont Levaquin Cont current meds as below AM labs Review of Systems - Review of Systems Constitutional: negative: fever, chills, sweats, weakness, malaise, other Gastrointestinal: negative: Nausea, Vomiting, Abdominal Pain, Diarrhea, Constipation, Melena, Hematochezia, Other - Medications/Allergies Allergies/Adverse Reactions: Allergies Allergy/AdvReac Type Severity Reaction Status Date / Time Penicillins Allergy Verified 05/22/15 04:55 Medications: Current Medications Acetaminophen (Tylenol) 650 mg PO Q4H PRN PRN Reason: Headache/Fever/Mild Pain (1-3) Hydrocodone Bitart/Acetaminophen ([place] 5/325) 1 tab PO Q6H PRN PRN Reason: Moderate Pain (4-6) Last Admin: 02/07/18 16:41 Dose: 1 tab Aspirin (Ecotrin) 81 mg PO DAILY [facility] Last Admin: 02/07/18 08:54 Dose: 81 mg Calcium Carbonate (Tums) 1,000 mg PO Q4H PRN PRN Reason: Heartburn or Indigestion Carvedilol (Coreg) 3.125 mg PO BID [facility] Last Admin: 02/07/18 21:20 Dose: 3.125 mg Furosemide (Lasix) 40 mg SLOW IVP Q8HR [facility] Last Admin: 02/07/18 21:20 Dose: 40 mg Levofloxacin 500 mg/ Device 100 mls @ 100 mls/hr IVPB Q24HR [facility] Last Admin: 02/07/18 14:14 Dose: 100 mls Lisinopril (Zestril) 2.5 mg PO DAILY [facility] Last Admin: 02/07/18 08:54 Dose: 2.5 mg Metolazone (Zaroxolyn) 5 mg PO 0830 [facility] Ondansetron HCl (Zofran Odt) 4 mg PO Q6H PRN PRN Reason: Nausea/Vomiting Ondansetron HCl (Zofran) 4 mg IVP Q6H PRN PRN Reason: Nausea/Vomiting Potassium Chloride (K-Dur) 40 meq PO 1999 [facility] Stop: 02/07/18 22:00 Last Admin: 02/07/18 21:20 Dose: 40 meq Senna/Docusate Sodium (Senokot S) 2 tab PO BID [facility] Last Admin: 02/07/18 21:21 Dose: Not Given Sodium Chloride (Flush - Normal Saline) 10 ml IVF PRN PRN PRN Reason: Saline Flush Last Admin: 02/07/18 21:21 Dose: 10 ml Tamsulosin HCl (Flomax) 0.4 mg PO DAILY [facility] Last Admin: 02/07/18 08:54 Dose: 0.4 mg
[2018-02-08 05:33] LABS: #Eosinphils 0.4 thou/uL (0.0-0.7); #Lymphocytes 1.3 thou/uL (1.20-3.40); #Monocytes 0.6 thou/uL (0.11-0.59); #Neutrophils 4.1 thou/uL (1.40-6.50); %Basophils 0.4 % (0.0-1.0); %Eosinophils 6.4 % (0.0-10.0); %Lymphocytes 20.4 % (21.0-51.0); %Monocytes 9.2 % (0.0-10.0); %Neutrophils 63.6 % (42.0-75.0); Hemoglobin 11.1 g/dL (14.0-18.0); Mean Corpuscular HGB CONC 31.4 g/dL (32.0-36.0); Mean Corpuscular Hemoglobin 28.6 pg (27.0-31.0); Mean Corpuscular Volume 91.1 fL (78.0-98.0); Mean Platelet Volume 8.5 fL (7.4-10.4); Platelet Count 230 thou/uL (130-400); RBC Distribution Width 15.3 % (11.5-14.5); Red Blood Cell (RBC) Count 3.87 mill/uL (4.70-6.10); White Blood Cell (WBC) Count 6.4 thou/uL (4.8-10.8)
[2018-02-08 05:47] LABS: ALT (SGPT) 9 U/L (8-55); AST (SGOT) 15 U/L (5-34); Albumin 2.6 g/dL (3.5-5.0); Alkaline Phosphatase 126 U/L (40-150); Anion Gap 14 mmol/L (10-20); BUN (Urea Nitrogen) 32 mg/dL (8.4-25.7); Bilirubin, Total 0.8 mg/dL (0.2-1.2); Calc. Creatinine Clearance 95 mL/min (70-130); Calcium 8.6 mg/dL (7.8-10.44); Carbon Dioxide 30 mmol/L (22-29); Chloride 101 mmol/L (98-107); Estimated GFR-MDRD 77; Globulin 4.8 g/dL (2.4-3.5); Glucose 89 mg/dL (70-105); Magnesium 1.9 mg/dL (1.6-2.6); Potassium 4.5 mmol/L (3.5-5.1); Protein, Total 7.4 g/dL (6.0-8.3); Sodium 140 mmol/L (136-145)
[2018-02-08] MEDS: HYDROcodone/Acetaminophen 5/325 mg Tablet PO PRN ×2 (06:57→20:16)
[2018-02-08] MEDS: Senokot S 8.6-50 MG TAB PO SCH ×2 (06:58→20:16)
[2018-02-08] MEDS: Furosemide 40 MG/4 ML VIAL SLOW IVP SCH ×3 (06:58→21:47)
[2018-02-08] MEDS: Metolazone 5 MG TAB PO SCH (09:10)
[2018-02-08] MEDS: Aspirin 81 mg Enteric Coated Tablet PO SCH (09:10)
[2018-02-08] MEDS: Carvedilol 3.125 MG TAB PO SCH ×2 (09:10→20:16)
[2018-02-08] MEDS: Lisinopril 2.5 MG TAB PO SCH (09:10)
[2018-02-08] MEDS: Tamsulosin HCl 0.4 MG CAP PO SCH (09:10)
[2018-02-08] MEDS: Enoxaparin Sodium 40 MG/0.4 ML SYRINGE SC SCH (09:13)
[2018-02-08] MEDS: Magnesium Oxide 400 MG TAB PO SCH (09:14)
--- NOTE | 2018-02-08 09:57 | PRG ---
DATE OF SERVICE: 02/08/2018 SUBJECTIVE: The patient is resting comfortably, scrotal discomfort improving, and no discomfort while lying in bed. OBJECTIVE: VITAL SIGNS: Stable. He is afebrile. Further diuretics has been added in addition to his Lasix q.8. I's and O's; 940 in, 2600 out. Admitting weight 216 pounds, currently 213 pounds. He is negative 1.6 L. ABDOMEN: Distended abdomen consistent with ascites. No rigidity. No rebound. : As previous, significant scrotal edema consistent with anasarca, pitting edema. There is some breakdown of skin laterally minimal as there is contracture of the scrotal skin consistent with diuresis. There is no crepitus, erythema, induration concerning for secondary infection. Scrotum is not elevated as I previously advised. PERTINENT LABORATORY DATA: White count 6.4, hemoglobin 11, and platelets 230. Creatinine is 1.1. UA unremarkable, negative bacteria. No evidence of squamous epithelia. Culture demonstrating Staph aureus, pansensitive. IMAGING STUDIES: Echocardiogram on this admission demonstrates EF of 15% to 20% . IMPRESSION AND PLAN: Mr. Shelby is a 57-year-old male with past medical history of; 1. Diabetes. 2. Severe congestive heart failure with ejection fraction of 15% to 20%, followed by Dr. Antonio. 3. History of hepatitis B cirrhosis. 4. History of alcohol abuse. 5. History of ascites, status post paracentesis, 5 L removed last month at [facility]. 6. History of right inguinal hernia surgery at [facility] secondary to strangulated bowel, partial small bowel resection. 7. Urologic issues of bilateral scrotal swelling consistent with anasarca, scrotal edema consistent with fluid overload and ascites. 8. Incidental right avascular testis, multifactorial. This does not warrant surgical exploration, i.e., right orchiectomy as the patient is asymptomatic; fertility not an issue. Moreover, significant high risk for surgical intervention given his severe cardiomyopathy, ascites with liver dysfunction, chronic lymphedema, anasarca. The patient has been informed regarding high risk of surgical intervention; moreover, as he is asymptomatic no surgical intervention is warranted. He is fully informed that if surgical intervention, he will most likely progress to nonhealing wound. Regarding his scrotal edema, I expect this to resolve with aggressive diuresis. Due to severely depressed ejection fraction, hypoalbuminemia, diuresis has been suboptimal. Disposition is pending. This is somewhat complicated as the patient lives in a private residence with limited funds. He has limited mobility due to significant anasarca and scrotal edema. I have spoken with the Primary Service, he is at high risk for fall and self-care at home. Recommend usp, rehab evaluation. Case Management is yet to see the patient. Recommend indwelling Simpson catheter to continue until scrotal edema improves as he has been urinating into his prepuce due to significant scrotal edema. May continue antibiotics for now. I will be off service next week. On-call urologic coverage for p.r.n. issues. Job ID: [id number] [facility]
--- NOTE | 2018-02-08 10:20 | PRG ---
DATE OF SERVICE: SUBJECTIVE: Mr. Shelby is not having difficulty breathing. No chest pain. He is on high-dose diuretics, but only modest diuresis. He did put out 2.6 L yesterday, but received furosemide 40 mg IV every 8 hours as well as metolazone. He has an indwelling Simpson catheter. OBJECTIVE: VITAL SIGNS: His blood pressure is 126/75 and pulse 75. LUNGS: Clear. CARDIAC: Normal S1 and normal S2. ABDOMEN: Soft and nontender. EXTREMITIES: Still severe edema up to all over the top of his thighs with SEVERE SCROTAL EDEMA. LABORATORY DATA: Potassium 4.5, BUN is 32, and creatinine 1.18. Echocardiogram revealed ejection fraction 10% to 15%. ASSESSMENT: 1. Severe cardiomyopathy. 2. Severe scrotal edema. 3. Probable infection, being treated with antibiotics. PLAN: 1. Continue intravenous diuretics. 2. Continue scrotal elevation. 3. Watch basic met closely. 4. The patient indicates when he is discharged, he wishes to follow up with Dr. Antonio, who is his primary manager helpdesk. 5. Discussed defibrillator implantation once his infection is for sure resolved. The patient is not certain, if he wants to do that. He wishes to follow up with Dr. Antonio about that. Long-term prognosis unfortunately is likely poor from a pump failure standpoint due to cardiomyopathy and problems with alcohol. As mentioned, he wishes to follow up with Dr. Antonio. The patient previously was on Entresto, but said he could not afford it. He is on lisinopril, low-dose carvedilol and high dose diuretics now. Hopefully, if his volume status could be improved, the lisinopril dose could be increased, but for now would need some blood pressure to try to diurese. Long-term prognosis guarded to poor. I will be out in the next few days. Dr. Nova and my partners will be rounding on this gentleman. Job ID: [id number]
[2018-02-08] MEDS ORDERED: Potassium Chloride 20 MEQ TAB PO SCH (12:00)
[2018-02-08] MEDS: Triple Antibiotic Oint 1 GM Packet TOP SCH ×2 (15:03→20:16)
--- NOTE | 2018-02-08 22:52 | PDOC.PN ---
- Subjective Encounter Start Date: 02/08/18 Encounter Start Time: 10:00 Patient seen and examined for CHF. SOB improving. Feels better. No new complaints. No overnight events - Objective Resuscitation Status - Order Detail: 02/05/18 12:49 Resuscitation Status Routine Resuscitation Status: FULL: Full Resuscitation MAR Reviewed: Yes Vital Signs & Weight: Vital Signs (12 hours) Temp Pulse Resp BP Pulse Ox 02/08/18 19:15 98.1 F 75 16 119/71 100 02/08/18 15:15 98.7 F 74 14 112/67 96 02/08/18 11:55 98.3 F 71 15 115/80 97 Weight Weight 213 lb 9.6 oz I&O: 02/07/18 02/08/18 02/09/18 06:59 06:59 06:59 Intake Total 1320 940 580 Output Total 1950 2600 3300 Balance -454 -3833 -4331 Result Diagrams: 02/08/18 04:17 02/09/18 04:03 Additional Labs: Accuchecks 02/08/18 02/08/18 02/08/18 20:37 16:47 10:49 POC Glucose 107 106 82 02/08/18 02/07/18 05:44 20:19 POC Glucose 86 92 EKG Reviewed by me: Yes (Tele SR) Phys Exam - Physical Examination Constitutional: NAD Respiratory: no wheezing, no rhonchi Bibasilar rales Cardiovascular: RRR, no rub Gastrointestinal: soft, non-tender, positive bowel sounds Scrotal edema Musculoskeletal: edema present Neurological: moves all 4 limbs Dx/Plan - Plan DVT proph w/lovenox, DVT proph w/SCDs 1. Acute on chronic systolic heart failure exacerbation. ACC stage C 2. Scrotal edema. 3. Avascular Rt testis. 4. Mild coronary artery disease in the last cardiac cath in 2016. 5. Former tobacco user. 6. History of cocaine abuse in the past. 7. Chronic alcohol use. 8. Diabetes mellitus type 2. 9. Hypertension. 10. Penicillin allergy. 11. Normochromic normocytic anemia, probably chronic. 12. BPH PLAN: Cont IV diuretics with Metolazone with fluid restriction Daily labs Cont Coreg/ACEI Cont Levaquin Cont other meds as below Review of Systems - Review of Systems Cardiovascular: negative: chest pain, palpitations, orthopnea, paroxysmal nocturnal dyspnea, edema, light headedness, other Gastrointestinal: negative: Nausea, Vomiting, Abdominal Pain, Diarrhea, Constipation, Melena, Hematochezia, Other - Medications/Allergies Allergies/Adverse Reactions: Allergies Allergy/AdvReac Type Severity Reaction Status Date / Time Penicillins Allergy Verified 05/22/15 04:55 Medications: Current Medications Acetaminophen (Tylenol) 650 mg PO Q4H PRN PRN Reason: Headache/Fever/Mild Pain (1-3) Hydrocodone Bitart/Acetaminophen ([place] 5/325) 1 tab PO Q6H PRN PRN Reason: Moderate Pain (4-6) Last Admin: 02/08/18 20:16 Dose: 1 tab Aspirin (Ecotrin) 81 mg PO DAILY [facility] Last Admin: 02/08/18 09:10 Dose: 81 mg Calcium Carbonate (Tums) 1,000 mg PO Q4H PRN PRN Reason: Heartburn or Indigestion Carvedilol (Coreg) 3.125 mg PO BID [facility] Last Admin: 02/08/18 20:16 Dose: 3.125 mg Enoxaparin Sodium (Lovenox) 40 mg SC 0900 [facility] Last Admin: 02/08/18 09:13 Dose: 40 mg Furosemide (Lasix) 40 mg SLOW IVP Q8HR [facility] Last Admin: 02/08/18 21:47 Dose: 40 mg Levofloxacin 500 mg/ Device 100 mls @ 100 mls/hr IVPB Q24HR [facility] Last Admin: 02/08/18 15:05 Dose: 100 mls Lisinopril (Zestril) 2.5 mg PO DAILY [facility] Last Admin: 02/08/18 09:10 Dose: 2.5 mg Magnesium Oxide (Magnesium Oxide) 400 mg PO DAILY [facility] Last Admin: 02/08/18 09:14 Dose: 400 mg Metolazone (Zaroxolyn) 5 mg PO 0830 [facility] Last Admin: 02/08/18 09:10 Dose: 5 mg Neomycin/Polymyxin/Bacitracin (Triple Antibiotic) 1 gm TOP TID [facility] Last Admin: 02/08/18 20:16 Dose: 1 gm Ondansetron HCl (Zofran Odt) 4 mg PO Q6H PRN PRN Reason: Nausea/Vomiting Ondansetron HCl (Zofran) 4 mg IVP Q6H PRN PRN Reason: Nausea/Vomiting Potassium Chloride (Klor-Con) 20 meq PO QAM-WM [facility] Senna/Docusate Sodium (Senokot S) 2 tab PO BID [facility] Last Admin: 02/08/18 20:16 Dose: 2 tab Sodium Chloride (Flush - Normal Saline) 10 ml IVF PRN PRN PRN Reason: Saline Flush Last Admin: 02/08/18 15:02 Dose: 10 ml Tamsulosin HCl (Flomax) 0.4 mg PO DAILY [facility] Last Admin: 02/08/18 09:10 Dose: 0.4 mg
[2018-02-09] MEDS: Furosemide 40 MG/4 ML VIAL SLOW IVP SCH ×3 (05:33→21:15)
[2018-02-09 05:36] LABS: Anion Gap 14 mmol/L (10-20); BUN (Urea Nitrogen) 32 mg/dL (8.4-25.7); Calc. Creatinine Clearance 102 mL/min (70-130); Calcium 8.8 mg/dL (7.8-10.44); Carbon Dioxide 31 mmol/L (22-29); Chloride 99 mmol/L (98-107); Estimated GFR-MDRD 84; Glucose 81 mg/dL (70-105); Potassium 4.6 mmol/L (3.5-5.1); Sodium 139 mmol/L (136-145)
[2018-02-09] MEDS ORDERED: Potassium Chloride 20 MEQ TAB PO SCH (08:00)
[2018-02-09] MEDS: Metolazone 5 MG TAB PO SCH (08:35)
[2018-02-09] MEDS: Carvedilol 3.125 MG TAB PO SCH ×2 (08:35→20:27)
[2018-02-09] MEDS: Aspirin 81 mg Enteric Coated Tablet PO SCH (08:35)
[2018-02-09] MEDS: Lisinopril 2.5 MG TAB PO SCH (08:35)
[2018-02-09] MEDS: Triple Antibiotic Oint 1 GM Packet TOP SCH ×3 (08:36→20:27)
[2018-02-09] MEDS: Tamsulosin HCl 0.4 MG CAP PO SCH (08:36)
[2018-02-09] MEDS: Magnesium Oxide 400 MG TAB PO SCH (08:36)
[2018-02-09] MEDS: Enoxaparin Sodium 40 MG/0.4 ML SYRINGE SC SCH (08:36)
[2018-02-09] MEDS: Senokot S 8.6-50 MG TAB PO SCH ×2 (08:50→20:27)
[2018-02-09] MEDS ORDERED: Milk Of Magnesia 30 ML UDCUP PO PRN (10:26)
[2018-02-09] MEDS ORDERED: Milk Of Magnesia 30 ML UDCUP PO SCH (10:30)
[2018-02-09] MEDS ORDERED: Polyethylene Glycol 3350 17 GM Packet PO SCH (10:30)
--- NOTE | 2018-02-09 12:27 | PDOC.PN ---
- Subjective Encounter Start Date: 02/09/18 Encounter Start Time: 10:00 Patient seen and examined for CHF exacerbation. SOB improving. No new complaints. No overnight events - Objective Resuscitation Status - Order Detail: 02/05/18 12:49 Resuscitation Status Routine Resuscitation Status: FULL: Full Resuscitation MAR Reviewed: Yes Vital Signs & Weight: Vital Signs (12 hours) Temp Pulse Resp BP Pulse Ox 02/09/18 11:28 98.2 F 76 16 125/66 96 02/09/18 08:31 98.7 F 77 16 120/70 93 L 02/09/18 08:30 93 L 02/09/18 04:00 98.7 F 76 18 120/72 97 Weight Weight 219 lb 11.2 oz I&O: 02/08/18 02/09/18 02/10/18 06:59 06:59 06:59 Intake Total 940 940 Output Total 2600 4000 Balance -1660 -3060 Result Diagrams: 02/08/18 04:17 02/09/18 04:03 Additional Labs: Accuchecks 02/09/18 02/09/18 02/08/18 10:40 06:16 20:37 POC Glucose 140 H 103 107 02/08/18 16:47 POC Glucose 106 EKG Reviewed by me: Yes (Tele SR) Phys Exam - Physical Examination Constitutional: NAD Respiratory: no wheezing, no rhonchi Cardiovascular: RRR, no rub Gastrointestinal: soft, non-tender, positive bowel sounds scrotal edema - improving Musculoskeletal: edema present Neurological: moves all 4 limbs Dx/Plan - Plan DVT proph w/lovenox, DVT proph w/SCDs 1. Acute on chronic systolic heart failure exacerbation. ACC stage C 2. Scrotal edema. 3. Avascular Rt testis. 4. Mild coronary artery disease in the last cardiac cath in 2016. 5. Former tobacco user. 6. History of cocaine abuse in the past. 7. Chronic alcohol use. 8. Diabetes mellitus type 2. 9. Hypertension. 10. Penicillin allergy. 11. Normochromic normocytic anemia, probably chronic. 12. BPH 13. Constipation PLAN: Cont IV diuretics with Metolazone Cont fluid restriction Daily labs Cont Coreg/ACEI Cont Levaquin - change to PO Cont current meds as below Cont Simpson catheter Ambulate Rehab eval pending Cont PT/OT Add Miralax Review of Systems - Review of Systems Respiratory: SOB with Excertion. negative: Cough, Dry, Shortness of Breath, Hemoptysis, Pleuritic Pain, Sputum, Wheezing Cardiovascular: negative: chest pain, palpitations, orthopnea, paroxysmal nocturnal dyspnea, edema, light headedness, other Gastrointestinal: Constipation. negative: Nausea, Vomiting, Abdominal Pain, Diarrhea, Melena, Hematochezia, Other - Medications/Allergies Allergies/Adverse Reactions: Allergies Allergy/AdvReac Type Severity Reaction Status Date / Time Penicillins Allergy Verified 05/22/15 04:55 Medications: Current Medications Acetaminophen (Tylenol) 650 mg PO Q4H PRN PRN Reason: Headache/Fever/Mild Pain (1-3) Hydrocodone Bitart/Acetaminophen ([place] 5/325) 1 tab PO Q6H PRN PRN Reason: Moderate Pain (4-6) Last Admin: 02/08/18 20:16 Dose: 1 tab Aspirin (Ecotrin) 81 mg PO DAILY [facility] Last Admin: 02/09/18 08:35 Dose: 81 mg Calcium Carbonate (Tums) 1,000 mg PO Q4H PRN PRN Reason: Heartburn or Indigestion Carvedilol (Coreg) 3.125 mg PO BID [facility] Last Admin: 02/09/18 08:35 Dose: 3.125 mg Enoxaparin Sodium (Lovenox) 40 mg SC 0900 [facility] Last Admin: 02/09/18 08:36 Dose: 40 mg Furosemide (Lasix) 40 mg SLOW IVP Q8HR [facility] Last Admin: 02/09/18 05:33 Dose: 40 mg Levofloxacin (Levaquin) 500 mg PO 0600 [facility] Lisinopril (Zestril) 2.5 mg PO DAILY [facility] Last Admin: 02/09/18 08:35 Dose: 2.5 mg Magnesium Hydroxide (Milk Of Magnesium) 30 ml PO DAILYPRN PRN PRN Reason: Constipation Magnesium Oxide (Magnesium Oxide) 400 mg PO DAILY [facility] Last Admin: 02/09/18 08:36 Dose: 400 mg Metolazone (Zaroxolyn) 5 mg PO 0830 [facility] Last Admin: 02/09/18 08:35 Dose: 5 mg Neomycin/Polymyxin/Bacitracin (Triple Antibiotic) 1 gm TOP TID [facility] Last Admin: 02/09/18 08:36 Dose: 1 gm Ondansetron HCl (Zofran Odt) 4 mg PO Q6H PRN PRN Reason: Nausea/Vomiting Ondansetron HCl (Zofran) 4 mg IVP Q6H PRN PRN Reason: Nausea/Vomiting Polyethylene Glycol (Miralax) 17 gm PO DAILY [facility] Potassium Chloride (Klor-Con) 20 meq PO QAM-WM [facility] Last Admin: 02/09/18 08:36 Dose: 20 meq Senna/Docusate Sodium (Senokot S) 2 tab PO BID [facility] Last Admin: 02/09/18 08:50 Dose: 2 tab Sodium Chloride (Flush - Normal Saline) 10 ml IVF PRN PRN PRN Reason: Saline Flush Last Admin: 02/09/18 08:36 Dose: 10 ml Tamsulosin HCl (Flomax) 0.4 mg PO DAILY [facility] Last Admin: 02/09/18 08:36 Dose: 0.4 mg
[2018-02-09] MEDS: HYDROcodone/Acetaminophen 5/325 mg Tablet PO PRN (14:44)
--- NOTE | 2018-02-10 00:38 | CON ---
DATE OF CONSULTATION: 02/09/2018 SUBJECTIVE: This is a 57-year-old male with severe congestive heart failure, history of hepatitis B, cirrhosis, alcohol abuse, and history of ascites. The patient underwent recent right inguinal hernia surgery at the [facility] secondary to strangulated bowel and a partial small-bowel obstruction, and has presented to [facility] with congestive heart failure, bilateral lower extremity edema as well as scrotal edema. A Simpson catheter was placed under the supervision of Dr. Megan Mcknight. The patient is being followed for her. The patient is resting comfortably again today. He is self-reporting that he is feeling much better than he was at admission. He is still complaining that he is constipated and has bloated abdomen but is otherwise doing well. The patient reports he has intermittent left and right-sided scrotal pain, which seems to be no better or worse than it has been in the past that he was previously noticing focal pain on the left but this seems to now have resolved to focal right and left pain. This yet is intermittent and he reports to a degree improving. PHYSICAL EXAMINATION: VITAL SIGNS: The patient is afebrile with temperature of 97.9, pulse 76, respirations 18, and room air saturation is 98%. The patient's blood pressure is 122/72. GENERAL: This is a pleasant, awake, alert, male, in no apparent distress. HEAD, EYES, EARS, NOSE, AND THROAT: Extraocular movements are intact. Sclerae are anicteric. Oropharynx is clear. NECK: Supple. LUNGS: Clear to auscultation bilaterally. CARDIAC: Regular rate and rhythm on auscultation. I did review the patient's cardiac cath lab radiology technologist today, and he has a regular rhythm at 72 beats per minute. ABDOMEN: Markedly distended. Percussion reveals increased resonance in all 4 quadrants. This will be consistent with ileus. GENITOURINARY: The patient's scrotum is massively edematous. The glans penis and penis were buried secondary to the edema. The patient has woody induration of the bilateral thigh and calves. There is 3+ pitting present. Digital rectal examination was not performed. A Simpson catheter is in place and is draining straw-colored urine. LABORATORY STUDIES: The patient's white count is 6400, current hemoglobin 11.1 with hematocrit of 35.2, and platelet count is 230. Serum chemistries show the patient's potassium this morning at 4.6, carbon dioxide at 31, blood urea nitrogen 32 with creatinine of 1.1. Glucose testing this afternoon shows glucose level of 123. The patient has not had urine cultures obtained on this hospital admission. ASSESSMENT: 1. Indwelling Simpson catheter. It would be appropriate to continue this for at least an additional 24 hours. 2. Massive edema secondary to congestive heart failure. Diuresis as medically indicated and permitted. 3. Intermittent testicular pain. The patient did have a previous ultrasound performed of the scrotum on 02/05/2018, which demonstrated scrotal wall edema as well as absence of flow in the right testis consistent with torsion. This patient was deemed by Dr. Mcknight to be not suitable for the operating room at initial evaluation based on his other medical issues. The patient does note a little bit of tenderness on the right side, whereas he was previously noticing it on the left. This could reflect discomfort from a torsion event. At the present time, the patient is not a good surgical candidate, will be at more risk from a surgical intervention than simply from his possible torsion or infarction of the right testis. At the present time, I would recommend continued observation of the patient from Urologic standpoint with no plans for current intervention. Over 35 minutes of consultation, evaluation, and assessment time was spent on the assessment of this patient today. Job ID: [id number]
[2018-02-10] MEDS: Furosemide 40 MG/4 ML VIAL SLOW IVP SCH ×3 (05:20→20:50)
[2018-02-10 05:48] LABS: Anion Gap 13 mmol/L (10-20); BUN (Urea Nitrogen) 31 mg/dL (8.4-25.7); Calc. Creatinine Clearance 106 mL/min (70-130); Carbon Dioxide 33 mmol/L (22-29); Chloride 97 mmol/L (98-107); Estimated GFR-MDRD 85; Glucose 95 mg/dL (70-105); Magnesium 2.2 mg/dL (1.6-2.6); Sodium 138 mmol/L (136-145)
[2018-02-10] MEDS ORDERED: Magnesium Citrate 300 ML BOT PO SCH (08:30)
[2018-02-10] MEDS: Aspirin 81 mg Enteric Coated Tablet PO SCH (08:46)
[2018-02-10] MEDS: Tamsulosin HCl 0.4 MG CAP PO SCH (08:46)
[2018-02-10] MEDS: Metolazone 5 MG TAB PO SCH (08:46)
[2018-02-10] MEDS: Senokot S 8.6-50 MG TAB PO SCH ×2 (08:46→20:50)
[2018-02-10] MEDS: Enoxaparin Sodium 40 MG/0.4 ML SYRINGE SC SCH (08:47)
[2018-02-10] MEDS: Magnesium Oxide 400 MG TAB PO SCH (08:47)
[2018-02-10] MEDS: Lisinopril 2.5 MG TAB PO SCH (08:47)
[2018-02-10] MEDS: Carvedilol 3.125 MG TAB PO SCH ×2 (08:47→20:50)
[2018-02-10] MEDS: Triple Antibiotic Oint 1 GM Packet TOP SCH ×3 (08:47→20:50)
[2018-02-10] MEDS: Polyethylene Glycol 3350 17 GM Packet PO SCH (08:48)
--- NOTE | 2018-02-10 19:44 | CON ---
DATE OF CONSULTATION: INITIAL REASON FOR CONSULTATION: 1. Scrotal edema secondary to congestive heart failure and multiple other issues. 2. 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 BRIEF HISTORY: Mr. Nimesh Shelby Junior is a very pleasant 57-year-old -Eli male with severe congestive heart failure, history of hepatitis B, cirrhosis, alcohol abuse, and history of ascites. The patient underwent a recent right inguinal hernia surgery at the [facility] secondary to strangulated bowel and a partial small bowel obstruction and later presented to the [facility] with congestive heart failure, bilateral lower extremity edema, and scrotal edema. The patient underwent Simpson catheter placement by Dr. Megan Mcknight, who is following the patient from a Urologic standpoint. The patient was noted on ultrasound evaluation of scrotum to have nonperfusion in the right testis. He is not undergoing intervention for that due to his other multiple medical issues. The patient is having no major pain complaints today and is tolerating his condition well. INTERVAL EVENTS: The patient has had some progression of his abdominal girth indicating possible ascites. His scrotal edema is about the same as it was yesterday and his leg edema has reduced on diuresis. PHYSICAL EXAMINATION: VITAL SIGNS: The patient is afebrile with a temperature of 98.1, pulse 73, respiration 16, O2 saturation on room air is 95%. Blood pressure is 114/74. GENERAL: This is a pleasant awake, alert, -[place] male, in no apparent distress. HEAD, EARS, NOSE, AND THROAT: Extraocular movements are intact. Sclerae are anicteric. Oropharynx is clear. NECK: Supple. LUNGS: Clear to auscultation bilaterally. CARDIAC: The patient's rate is under control at 73. ABDOMEN: Markedly distended. There is relative tightness to the abdomen as well. Percussion reveals some increased resonance, particularly in the midline suggesting of the bowel. There is a slight fluid wave present. GENITOURINARY: Scrotal edema is quite significant. This extends into the penile skin as well and indwelling Simpson catheter is in place with trace hematuria. The patient reports no more pain on the right than the left side of the scrotum, which appears to be mild at rest. It is negligible. EXTREMITIES: Bilateral lower extremities show woody edema. There is some wrinkling of the skin on the legs bilaterally, which is more progressive than yesterday indicating decreased edema level. LABORATORY STUDIES: There have been no hematologic profile since we saw the patient. His electrolytes today show carbon dioxide at 33, chloride at 97, blood urine nitrogen at 31, and creatinine to 1.08. The patient's point of care testing glucose is 96 today. ASSESSMENT: 1. Scrotal edema due to multiple causes. Continue diuresis as indicated and allowed by the patient's medical condition. It would be the primary treatment for this. Scrotal elevation may be further helpful. 2. Non-perfusion of right testis. The patient is not a good candidate for surgical intervention or orchiectomy at this point. This would likely cause further difficulties. The patient is being followed by his primary urologist Dr. Mcknight, who developed this plan and is in agreement that there has been progression for him at this point. Over 35 minutes of consultation assessment time was spent with the patient discussing his current condition. Job ID: [id number]
--- NOTE | 2018-02-10 21:10 | PDOC.PN ---
- Subjective Encounter Start Date: 02/10/18 Encounter Start Time: 10:30 Patient seen and examined for CHF flare. Feels better. No new complaints. No overnight events - Objective Resuscitation Status - Order Detail: 02/05/18 12:49 Resuscitation Status Routine Resuscitation Status: FULL: Full Resuscitation MAR Reviewed: Yes Vital Signs & Weight: Vital Signs (12 hours) Temp Pulse Resp BP Pulse Ox 02/10/18 20:00 97.6 F 77 16 121/79 94 L 02/10/18 15:23 97.8 F 74 16 119/75 95 02/10/18 11:57 98.1 F 73 16 114/74 95 Weight Weight 209 lb I&O: 02/09/18 02/10/18 02/11/18 06:59 06:59 06:59 Intake Total 940 1140 600 Output Total 4000 3000 3250 Balance -3160 -4810 -5012 Result Diagrams: 02/11/18 04:30 02/11/18 04:30 Additional Labs: Accuchecks 02/10/18 02/10/18 02/10/18 20:10 16:46 10:42 POC Glucose 130 H 118 H 96 02/10/18 06:30 POC Glucose 88 EKG Reviewed by me: Yes (Tele SR) Phys Exam - Physical Examination Constitutional: NAD Respiratory: no wheezing, no rhonchi Cardiovascular: RRR, no rub Gastrointestinal: soft, non-tender, positive bowel sounds Musculoskeletal: edema present Neurological: non-focal Dx/Plan - Plan DVT proph w/lovenox, DVT proph w/SCDs 1. Acute on chronic systolic heart failure exacerbation. ACC stage C - improving 2. Scrotal edema. 3. Avascular Rt testis. 4. Mild coronary artery disease in the last cardiac cath in 2016. 5. Former tobacco user. 6. History of cocaine abuse in the past. 7. Chronic alcohol use. 8. Diabetes mellitus type 2. 9. Hypertension. 10. Penicillin allergy. 11. Normochromic normocytic anemia, probably chronic. 12. BPH 13. Constipation PLAN: Cont IV diuretics/Metolazone/Coreg/ACEI with fluid restriction Accepted by Rehab AM labs DC to Rehab when ok with Cardiology Review of Systems - Review of Systems Constitutional: negative: fever, chills, sweats, weakness, malaise, other Gastrointestinal: negative: Nausea, Vomiting, Abdominal Pain, Diarrhea, Constipation, Melena, Hematochezia, Other - Medications/Allergies Allergies/Adverse Reactions: Allergies Allergy/AdvReac Type Severity Reaction Status Date / Time Penicillins Allergy Verified 05/22/15 04:55 Medications: Current Medications Acetaminophen (Tylenol) 650 mg PO Q4H PRN PRN Reason: Headache/Fever/Mild Pain (1-3) Hydrocodone Bitart/Acetaminophen ([place] 5/325) 1 tab PO Q6H PRN PRN Reason: Moderate Pain (4-6) Last Admin: 02/09/18 14:44 Dose: 1 tab Aspirin (Ecotrin) 81 mg PO DAILY [facility] Last Admin: 02/10/18 08:46 Dose: 81 mg Calcium Carbonate (Tums) 1,000 mg PO Q4H PRN PRN Reason: Heartburn or Indigestion Carvedilol (Coreg) 3.125 mg PO BID [facility] Last Admin: 02/10/18 20:50 Dose: 3.125 mg Enoxaparin Sodium (Lovenox) 40 mg SC 0900 [facility] Last Admin: 02/10/18 08:47 Dose: 40 mg Furosemide (Lasix) 40 mg SLOW IVP Q8HR [facility] Last Admin: 02/10/18 20:50 Dose: 40 mg Levofloxacin (Levaquin) 500 mg PO 0600 [facility] Last Admin: 02/10/18 05:20 Dose: 500 mg Lisinopril (Zestril) 2.5 mg PO DAILY [facility] Last Admin: 02/10/18 08:47 Dose: 2.5 mg Magnesium Hydroxide (Milk Of Magnesium) 30 ml PO DAILYPRN PRN PRN Reason: Constipation Magnesium Oxide (Magnesium Oxide) 400 mg PO DAILY [facility] Last Admin: 02/10/18 08:47 Dose: 400 mg Metolazone (Zaroxolyn) 5 mg PO 0830 [facility] Last Admin: 02/10/18 08:46 Dose: 5 mg Neomycin/Polymyxin/Bacitracin (Triple Antibiotic) 1 gm TOP TID [facility] Last Admin: 02/10/18 20:50 Dose: 1 gm Ondansetron HCl (Zofran Odt) 4 mg PO Q6H PRN PRN Reason: Nausea/Vomiting Ondansetron HCl (Zofran) 4 mg IVP Q6H PRN PRN Reason: Nausea/Vomiting Polyethylene Glycol (Miralax) 17 gm PO DAILY [facility] Last Admin: 02/10/18 08:48 Dose: Not Given Senna/Docusate Sodium (Senokot S) 2 tab PO BID [facility] Last Admin: 02/10/18 20:50 Dose: 2 tab Sodium Chloride (Flush - Normal Saline) 10 ml IVF PRN PRN PRN Reason: Saline Flush Last Admin: 02/10/18 08:47 Dose: 10 ml Tamsulosin HCl (Flomax) 0.4 mg PO DAILY [facility] Last Admin: 02/10/18 08:46 Dose: 0.4 mg
[2018-02-11 05:37] LABS: Hemoglobin 12.4 g/dL (14.0-18.0); Platelet Count 247 thou/uL (130-400)
[2018-02-11 05:43] LABS: Anion Gap 14 mmol/L (10-20); BUN (Urea Nitrogen) 29 mg/dL (8.4-25.7); Calc. Creatinine Clearance 108 mL/min (70-130); Calcium 8.8 mg/dL (7.8-10.44); Carbon Dioxide 29 mmol/L (22-29); Chloride 96 mmol/L (98-107); Estimated GFR-MDRD Greater than 90; Glucose 123 mg/dL (70-105); Magnesium 2.2 mg/dL (1.6-2.6); Potassium 4.6 mmol/L (3.5-5.1); Sodium 134 mmol/L (136-145)
[2018-02-11] MEDS: Furosemide 40 MG/4 ML VIAL SLOW IVP SCH ×3 (05:44→20:31)
[2018-02-11] MEDS: Lisinopril 2.5 MG TAB PO SCH (09:35)
[2018-02-11] MEDS: Tamsulosin HCl 0.4 MG CAP PO SCH (09:35)
[2018-02-11] MEDS: Metolazone 5 MG TAB PO SCH (09:35)
[2018-02-11] MEDS: Polyethylene Glycol 3350 17 GM Packet PO SCH (09:35)
[2018-02-11] MEDS: Triple Antibiotic Oint 1 GM Packet TOP SCH ×3 (09:35→20:31)
[2018-02-11] MEDS: Senokot S 8.6-50 MG TAB PO SCH ×2 (09:35→20:31)
[2018-02-11] MEDS: Magnesium Oxide 400 MG TAB PO SCH (09:35)
[2018-02-11] MEDS: Carvedilol 3.125 MG TAB PO SCH ×2 (09:36→20:31)
[2018-02-11] MEDS: Aspirin 81 mg Enteric Coated Tablet PO SCH (09:36)
[2018-02-11] MEDS: Enoxaparin Sodium 40 MG/0.4 ML SYRINGE SC SCH (09:37)
[2018-02-11] MEDS: HYDROcodone/Acetaminophen 5/325 mg Tablet PO PRN (12:38)
--- NOTE | 2018-02-11 20:55 | PDOC.PN ---
- Subjective Encounter Start Date: 02/11/18 Encounter Start Time: 10:45 Patient seen and examined for CHF. Feels better. No new complaints. No overnight events - Objective Resuscitation Status - Order Detail: 02/05/18 12:49 Resuscitation Status Routine Resuscitation Status: FULL: Full Resuscitation MAR Reviewed: Yes Vital Signs & Weight: Vital Signs (12 hours) Temp Pulse Pulse Pulse Resp BP BP 02/11/18 19:45 98.6 F 75 16 02/11/18 15:46 99.1 F 77 18 02/11/18 12:35 97.8 F 80 18 02/11/18 09:35 74 02/11/18 09:34 77 83 119/78 123/85 BP Pulse Ox Pulse Ox 02/11/18 19:45 117/73 92 L 02/11/18 15:46 110/64 96 02/11/18 12:35 116/67 93 L 02/11/18 09:35 02/11/18 09:34 93 L Weight Weight 192 lb 3.2 oz I&O: 02/10/18 02/11/18 02/12/18 06:59 06:59 06:59 Intake Total 1140 750 720 Output Total 3000 4875 3150 Balance -4819 -2412 -8640 Result Diagrams: 02/11/18 04:30 02/11/18 04:30 Additional Labs: Accuchecks 02/11/18 02/11/18 02/11/18 20:03 16:07 10:51 POC Glucose 204 H 136 H 96 02/11/18 05:19 POC Glucose 124 H EKG Reviewed by me: Yes (Tele SR) Phys Exam - Physical Examination Constitutional: NAD Respiratory: no wheezing, no rhonchi Cardiovascular: RRR, no rub Gastrointestinal: soft, non-tender, positive bowel sounds Musculoskeletal: edema present Neurological: moves all 4 limbs Dx/Plan - Plan DVT proph w/SCDs 1. Acute on chronic systolic heart failure exacerbation. ACC stage C 2. Scrotal edema. 3. Avascular Rt testis. 4. Mild coronary artery disease in the last cardiac cath in 2016. 5. Former tobacco user. 6. History of cocaine abuse in the past. 7. Chronic alcohol use. 8. Diabetes mellitus type 2. 9. Hypertension. 10. Penicillin allergy. 11. Normochromic normocytic anemia, probably chronic. 12. BPH 13. Constipation PLAN: Cont IV diuretics with Metolazone Cont Coreg/ACEI with fluid restriction BMP in AM DC to Rehab when ok with Cardiology Review of Systems - Medications/Allergies Allergies/Adverse Reactions: Allergies Allergy/AdvReac Type Severity Reaction Status Date / Time Penicillins Allergy Verified 05/22/15 04:55 Medications: Current Medications Acetaminophen (Tylenol) 650 mg PO Q4H PRN PRN Reason: Headache/Fever/Mild Pain (1-3) Hydrocodone Bitart/Acetaminophen ([place] 5/325) 1 tab PO Q6H PRN PRN Reason: Moderate Pain (4-6) Last Admin: 02/11/18 12:38 Dose: 1 tab Aspirin (Ecotrin) 81 mg PO DAILY [facility] Last Admin: 02/11/18 09:36 Dose: 81 mg Calcium Carbonate (Tums) 1,000 mg PO Q4H PRN PRN Reason: Heartburn or Indigestion Carvedilol (Coreg) 3.125 mg PO BID [facility] Last Admin: 02/11/18 20:31 Dose: 3.125 mg Enoxaparin Sodium (Lovenox) 40 mg SC 0900 [facility] Last Admin: 02/11/18 09:37 Dose: 40 mg Furosemide (Lasix) 40 mg SLOW IVP Q8HR [facility] Last Admin: 02/11/18 20:31 Dose: 40 mg Levofloxacin (Levaquin) 500 mg PO 0600 [facility] Last Admin: 02/11/18 05:44 Dose: 500 mg Lisinopril (Zestril) 2.5 mg PO DAILY [facility] Last Admin: 02/11/18 09:35 Dose: 2.5 mg Magnesium Hydroxide (Milk Of Magnesium) 30 ml PO DAILYPRN PRN PRN Reason: Constipation Magnesium Oxide (Magnesium Oxide) 400 mg PO DAILY [facility] Last Admin: 02/11/18 09:35 Dose: 400 mg Metolazone (Zaroxolyn) 5 mg PO 0830 [facility] Last Admin: 02/11/18 09:35 Dose: 5 mg Neomycin/Polymyxin/Bacitracin (Triple Antibiotic) 1 gm TOP TID [facility] Last Admin: 02/11/18 20:31 Dose: 1 gm Ondansetron HCl (Zofran Odt) 4 mg PO Q6H PRN PRN Reason: Nausea/Vomiting Ondansetron HCl (Zofran) 4 mg IVP Q6H PRN PRN Reason: Nausea/Vomiting Polyethylene Glycol (Miralax) 17 gm PO DAILY [facility] Last Admin: 02/11/18 09:35 Dose: 17 gm Senna/Docusate Sodium (Senokot S) 2 tab PO BID [facility] Last Admin: 02/11/18 20:31 Dose: 2 tab Sodium Chloride (Flush - Normal Saline) 10 ml IVF PRN PRN PRN Reason: Saline Flush Last Admin: 02/10/18 08:47 Dose: 10 ml Tamsulosin HCl (Flomax) 0.4 mg PO DAILY [facility] Last Admin: 02/11/18 09:35 Dose: 0.4 mg
[2018-02-12 05:40] LABS: Anion Gap 12 mmol/L (10-20); BUN (Urea Nitrogen) 28 mg/dL (8.4-25.7); Calc. Creatinine Clearance 100 mL/min (70-130); Calcium 8.6 mg/dL (7.8-10.44); Carbon Dioxide 31 mmol/L (22-29); Chloride 95 mmol/L (98-107); Estimated GFR-MDRD Greater than 90; Glucose 79 mg/dL (70-105); Potassium 4.4 mmol/L (3.5-5.1); Sodium 134 mmol/L (136-145)
[2018-02-12] MEDS: Furosemide 40 MG/4 ML VIAL SLOW IVP SCH (05:51)
[2018-02-12] MEDS: Carvedilol 3.125 MG TAB PO SCH (08:28)
[2018-02-12] MEDS: Metolazone 5 MG TAB PO SCH (08:28)
[2018-02-12] MEDS: Aspirin 81 mg Enteric Coated Tablet PO SCH (08:28)
[2018-02-12] MEDS: Enoxaparin Sodium 40 MG/0.4 ML SYRINGE SC SCH (08:28)
[2018-02-12] MEDS: Triple Antibiotic Oint 1 GM Packet TOP SCH ×2 (08:29→15:08)
[2018-02-12] MEDS: Senokot S 8.6-50 MG TAB PO SCH (08:29)
[2018-02-12] MEDS: Lisinopril 2.5 MG TAB PO SCH (08:29)
[2018-02-12] MEDS: Magnesium Oxide 400 MG TAB PO SCH (08:29)
[2018-02-12] MEDS: Polyethylene Glycol 3350 17 GM Packet PO SCH (08:29)
[2018-02-12] MEDS: Tamsulosin HCl 0.4 MG CAP PO SCH (08:29)
[2018-02-12 11:22] VITALS: TEMP 98.3
[2018-02-12] MEDS ORDERED: Spironolactone 25 MG TAB PO SCH (12:00)
--- NOTE | 2018-02-12 13:39 | PDOC.PN ---
- Subjective Encounter Start Date: 02/12/18 Encounter Start Time: 09:45 Patient seen and examined for Sepsis/Pneumonia. No new complaints. No overnight events - Objective Resuscitation Status - Order Detail: 02/05/18 12:49 Resuscitation Status Routine Resuscitation Status: FULL: Full Resuscitation MAR Reviewed: Yes Vital Signs & Weight: Vital Signs (12 hours) Temp Pulse Resp BP Pulse Ox 02/12/18 11:19 98.3 F 72 16 118/70 95 02/12/18 07:37 98.5 F 72 16 115/73 94 L 02/12/18 04:00 98.8 F 77 18 133/81 93 L Weight Weight 184 lb 14.4 oz I&O: 02/11/18 02/12/18 02/13/18 06:59 06:59 06:59 Intake Total 750 1020 Output Total 4875 5350 Balance -1593 -1699 Result Diagrams: 02/11/18 04:30 02/12/18 04:20 Additional Labs: Accuchecks 02/12/18 02/12/18 02/11/18 10:40 05:01 20:03 POC Glucose 83 114 H 204 H 02/11/18 16:07 POC Glucose 136 H EKG Reviewed by me: Yes (Tele SR) Phys Exam - Physical Examination Constitutional: NAD Respiratory: no wheezing Bibasilar rales/rhonchi Cardiovascular: RRR, no rub Gastrointestinal: soft, non-tender, positive bowel sounds Neurological: moves all 4 limbs Dx/Plan - Plan IMPRESSION: 1. Sepsis with acute organ dysfunction secondary to aspiration pneumonia/RSV B bronchitis/Klebsiella urinary tract infection. 2. Left-sided pulmonary embolism - on Eliquis 3. Catheter associated urinary tract infection/chronic urinary retention with indwelling Simpson catheter. 4. Swallow dysfunction. Declining PEG. 5. Multiple electrolyte abnormalities including hypokalemia, hypophosphatemia, and hypomagnesemia. 6. Chronically-elevated troponin due to demand ischemia. 7. Severe protein-calorie malnutrition. 8. Chronic anemia. 9. Myopathy of unknown type, on chronic steroids. 10. Elevated inflammatory markers. 11. Hypothyroidism. 12. History of cardiac arrest during an EGD in the past 13. Peptic ulcer disease - on PPIs. 14. Dyslipidemia. 15. Atrophic vaginitis, on estrogen. 16. Physical deconditioning. 17. Decubitus ulcer over the sacrum, stage II, present on admission. 18. Diabetes mellitus type 2 - on sliding scale. 19. Chronic diastolic heart failure - compensated. 20. Hypothyroidism - on levothyroxine. 21. Oral thrush. on Nystatin SSW PLAN: Cont Augmentin Patient has very poor PO intake. Very high risk of dehydration and ANA. Cont IVF @ 40 due to Poor PO intake Will d/w Palliative care and family ?Hospice Replace Magnessium AM labs DC planning in 1-2 days to [facility] if stable Cont other meds as below High risk for readmission. Review of Systems - Review of Systems Respiratory: Cough, Dry. negative: Shortness of Breath, Hemoptysis, SOB with Excertion, Pleuritic Pain, Sputum, Wheezing Cardiovascular: negative: chest pain, palpitations, orthopnea, paroxysmal nocturnal dyspnea, edema, light headedness, other Gastrointestinal: negative: Nausea, Vomiting, Abdominal Pain, Diarrhea, Constipation, Melena, Hematochezia, Other - Medications/Allergies Allergies/Adverse Reactions: Allergies Allergy/AdvReac Type Severity Reaction Status Date / Time Penicillins Allergy Verified 05/22/15 04:55 Medications: Current Medications Acetaminophen (Tylenol) 650 mg PO Q4H PRN PRN Reason: Headache/Fever/Mild Pain (1-3) Hydrocodone Bitart/Acetaminophen (Hansen 5/325) 1 tab PO Q6H PRN PRN Reason: Moderate Pain (4-6) Last Admin: 02/11/18 12:38 Dose: 1 tab Aspirin (Ecotrin) 81 mg PO DAILY [facility] Last Admin: 02/12/18 08:28 Dose: 81 mg Calcium Carbonate (Tums) 1,000 mg PO Q4H PRN PRN Reason: Heartburn or Indigestion Carvedilol (Coreg) 3.125 mg PO BID [facility] Last Admin: 02/12/18 08:28 Dose: 3.125 mg Enoxaparin Sodium (Lovenox) 40 mg SC 0900 [facility] Last Admin: 02/12/18 08:28 Dose: 40 mg Furosemide (Lasix) 40 mg SLOW IVP 0600,1400 [facility] Levofloxacin (Levaquin) 500 mg PO 0600 [facility] Last Admin: 02/12/18 05:51 Dose: 500 mg Lisinopril (Zestril) 2.5 mg PO DAILY [facility] Last Admin: 02/12/18 08:29 Dose: 2.5 mg Magnesium Hydroxide (Milk Of Magnesium) 30 ml PO DAILYPRN PRN PRN Reason: Constipation Magnesium Oxide (Magnesium Oxide) 400 mg PO DAILY [facility] Last Admin: 02/12/18 08:29 Dose: 400 mg Metolazone (Zaroxolyn) 5 mg PO 0830 [facility] Last Admin: 02/12/18 08:28 Dose: 5 mg Neomycin/Polymyxin/Bacitracin (Triple Antibiotic) 1 gm TOP TID [facility] Last Admin: 02/12/18 08:29 Dose: 1 gm Ondansetron HCl (Zofran Odt) 4 mg PO Q6H PRN PRN Reason: Nausea/Vomiting Ondansetron HCl (Zofran) 4 mg IVP Q6H PRN PRN Reason: Nausea/Vomiting Polyethylene Glycol (Miralax) 17 gm PO DAILY [facility] Last Admin: 02/12/18 08:29 Dose: 17 gm Senna/Docusate Sodium (Senokot S) 2 tab PO BID [facility] Last Admin: 02/12/18 08:29 Dose: 2 tab Sodium Chloride (Flush - Normal Saline) 10 ml IVF PRN PRN PRN Reason: Saline Flush Last Admin: 02/10/18 08:47 Dose: 10 ml Spironolactone (Aldactone) 25 mg PO QAM-WM [facility] Spironolactone (Aldactone) 25 mg PO 1200 [facility] Stop: 02/12/18 14:00 Last Admin: 02/12/18 11:23 Dose: 25 mg Tamsulosin HCl (Flomax) 0.4 mg PO DAILY [facility] Last Admin: 02/12/18 08:29 Dose: 0.4 mg
[2018-02-12] MEDS ORDERED: Furosemide 40 MG/4 ML VIAL SLOW IVP SCH (14:00)
[2018-02-12 15:08] VITALS: BP 116/78
[2018-02-13] MEDS ORDERED: Spironolactone 25 MG TAB PO SCH (08:00)
--- NOTE | 2018-02-13 11:20 | DIS ---
DATE OF ADMISSION: 02/05/2018 DATE OF DISCHARGE: 02/12/2018 DISCHARGE DISPOSITION: Inpatient rehabilitation. The patient was seen and examined on the day of discharge. Denies any new complaints. No chest pain, shortness of breath, or palpitations. The patient was advised to follow up with Dr. Antonio, Cardiology, in 2 weeks. Follow up with Dr. Mcknight on 20 February 2018, at 1:30 p.m. ALLERGIES: THE PATIENT IS ALLERGIC TO PENICILLIN. DISCHARGE MEDICATIONS: 1. Lasix 40 mg b.i.d. 2. Metformin 500 mg daily. 3. Aldactone 25 mg daily. 4. Aspirin 81 mg daily. 5. Carvedilol 3.125 mg b.i.d. 6. Levaquin 500 mg daily until 17 of February. 7. Lisinopril 2.5 mg daily. 8. Flomax 0.4 mg daily. 9. Nystatin powder in the perineal area b.i.d. 10. Tylenol as needed. INPATIENT CONSULTANTS: 1. Cardiology, Dr. Regan. 2. Urology, Dr. Mcknight. BRIEF HOSPITAL COURSE: The patient is a 57-year-old male with chronic systolic heart failure, presented to the emergency room with shortness of breath, lower extremity edema along with increased scrotal swelling and pain. Please refer to the history and physical for further details. The patient was admitted to the Telemetry Unit with a diagnosis of congestive heart failure exacerbation. He was started on IV diuretics. Later on, metolazone was added. His weight on the day of discharge is 184 pounds from 216 pounds on admission. He was extensively counseled on congestive heart failure. The patient has significant scrotal swelling in the emergency room. A scrotal ultrasound was done that showed absent of flow to the right testes consistent with torsion. The patient was evaluated by Urology. A Simpson catheter was placed in the emergency room by Urology. The patient was not considered a surgical candidate due to significant scrotal swelling along with congestive heart failure exacerbation. He has been cleared by Cardiology for discharge. FINAL DIAGNOSES: 1. Acute on chronic systolic heart failure exacerbation. 2. Significant scrotal edema, improving. 3. Avascular right testis conservatively managed. 4. Mild coronary artery disease. 5. Former tobacco user. 6. History of cocaine abuse in the past. 7. Diabetes mellitus type 2. 8. Chronic alcohol use. 9. Hypertension. 10. Chronic anemia. 11. Benign prostatic hypertrophy. 12. Constipation. 13. Hypertension. 14. Total time coordinating the discharge of this patient was 38 minutes. Job ID: [id number]
== END 2018-02-12 16:21 | DRG 292 ==
LOC: ERS 09:11 → ERHOLD 11:00 → 2NO 15:50
PROVIDERS: ADMIT Internal Medicine; ATTEND Internal Medicine
DX: I11.0 Hypertensive heart disease with heart failure (principal); N44.00 Torsion of testis, unspecified; I50.23 Acute on chronic systolic (congestive) heart failure; I42.9 Cardiomyopathy, unspecified; I25.10 Atherosclerotic heart disease of native coronary artery without angina pectoris; E11.9 Type 2 diabetes mellitus without complications; D64.9 Anemia, unspecified; N40.0 Benign prostatic hyperplasia without lower urinary tract symptoms; K59.00 Constipation, unspecified; Z72.89 Other problems related to lifestyle; Z87.891 Personal history of nicotine dependence; Z88.0 Allergy status to penicillin; Z79.84 Long term (current) use of oral hypoglycemic drugs; Z79.82 Long term (current) use of aspirin; Z79.899 Other long term (current) drug therapy
CPT/HCPCS: 36415; 36416; 71045; 76870; 80048; 80053; 80306; 81001; 83735; 83880; 84443; 84484; 85014; 85018; 85025; 85049; 93005; 93306; 93976; 96374; 96375; 96376; G8978-GP-CM; G8979-GP-CJ; G8987-GO-CK; G8988-GO-CI; J1650; J1940; J1956; J2270; J2405

== ENCOUNTER 2018-04-16 10:43 | Emergency (ER) | payer MEDICARE ==
--- NOTE | 2018-04-16 12:07 | RAD ---
AP VIEW CHEST: Date: 04/16/18 HISTORY: Abdominal swelling, increasing over 3 months. FINDINGS: Comparison made to previous exam from 02/14/18. AP view of chest demonstrates cardiomegaly. No evidence of effusions, pneumonia, or pneumothorax seen . IMPRESSION: Cardiomegaly. POS: [facility]
[2018-04-16 12:30] LABS: #Eosinphils 0.2 thou/uL (0.0-0.7); #Lymphocytes 1.1 thou/uL (1.20-3.40); #Monocytes 0.5 thou/uL (0.11-0.59); #Neutrophils 3.1 thou/uL (1.40-6.50); %Basophils 0.3 % (0.0-1.0); %Eosinophils 3.2 % (0.0-10.0); %Lymphocytes 23.1 % (21.0-51.0); %Monocytes 9.9 % (0.0-10.0); %Neutrophils 63.6 % (42.0-75.0); Hemoglobin 11.2 g/dL (14.0-18.0); Mean Corpuscular HGB CONC 31.2 g/dL (32.0-36.0); Mean Corpuscular Hemoglobin 29.1 pg (27.0-31.0); Mean Corpuscular Volume 93.3 fL (78.0-98.0); Mean Platelet Volume 7.8 fL (7.4-10.4); Platelet Count 219 thou/uL (130-400); RBC Distribution Width 14.7 % (11.5-14.5); Red Blood Cell (RBC) Count 3.86 mill/uL (4.70-6.10); White Blood Cell (WBC) Count 4.8 thou/uL (4.8-10.8)
[2018-04-16 13:10] LABS: ALT (SGPT) Less than 7 U/L (8-55); AST (SGOT) 13 U/L (5-34); Albumin 3.2 g/dL (3.5-5.0); Alkaline Phosphatase 145 U/L (40-150); Anion Gap 12 mmol/L (10-20); BUN (Urea Nitrogen) 28 mg/dL (8.4-25.7); Bilirubin, Total 1.1 mg/dL (0.2-1.2); Calc. Creatinine Clearance 0 mL/min (70-130); Calcium 9.2 mg/dL (7.8-10.44); Carbon Dioxide 30 mmol/L (22-29); Chloride 98 mmol/L (98-107); Estimated GFR-MDRD Greater than 90; Globulin 5.5 g/dL (2.4-3.5); Glucose 80 mg/dL (70-105); Lipase 8 U/L (8-78); Potassium 4.9 mmol/L (3.5-5.1); Protein, Total 8.7 g/dL (6.0-8.3); Sodium 135 mmol/L (136-145)
[2018-04-16 14:14] LABS: Bilirubin Small (Negative); Blood, Urine Small (Negative); Clarity CLEAR (Clear); Glucose, Urine (Dipstick) Negative (Negative); Leukocyte Trace (Negative); Nitrite Positive (Negative); Protein, Urine (Dipstick) 300 mg/dL (Neg-Trace); Specific Gravity, Urine 1.019 (1.002-1.036); pH, Urine 7.5 (5.0-9.0)
[2018-04-16 14:16] LABS: Hyaline Casts/LPF 0-3 HYALINE CAST LPF (0-3 Hyaline); Pathc Cast-AUWi Flag 0.58 (0-2.49); Squamous Epithelial 0-3 HPF (0-3); WBC/HPF 0-3 HPF (0-3)
[2018-04-16 14:34] LABS: Yeast-AUWi Flag 180.8 (0-25.0)
[2018-04-16 14:53] LABS: Bacteria/HPF 1+ HPF (None Seen); RBC/HPF 0-3 HPF (0-3); Yeast-All Forms None Seen HPF (None Seen)
[2018-04-16] MEDS ORDERED: Ibuprofen 200 MG TAB ONE (15:36)
== END 2018-04-16 15:44 | disposition home or self-care (01) ==
LOC: ERS 10:43
DX: K74.60 Unspecified cirrhosis of liver (principal); R14.0 Abdominal distension (gaseous); E11.9 Type 2 diabetes mellitus without complications; I11.0 Hypertensive heart disease with heart failure; I50.9 Heart failure, unspecified; Z87.891 Personal history of nicotine dependence
CPT/HCPCS: 71045; 80053; 81003; 81015; 83690; 84484; 85025; 87070; 87205; 93005

== ENCOUNTER 2018-05-26 16:37 | Emergency (ER) | payer MEDICARE ==
[2018-05-26 17:57] LABS: #Eosinphils 0.2 thou/uL (0.0-0.7); #Lymphocytes 0.8 thou/uL (1.20-3.40); #Monocytes 0.3 thou/uL (0.11-0.59); #Neutrophils 2.6 thou/uL (1.40-6.50); %Basophils 0.9 % (0.0-1.0); %Lymphocytes 20.9 % (21.0-51.0); %Monocytes 8.3 % (0.0-10.0); %Neutrophils 65.9 % (42.0-75.0); Hemoglobin 11.6 g/dL (14.0-18.0); Mean Corpuscular HGB CONC 31.1 g/dL (32.0-36.0); Mean Corpuscular Hemoglobin 29.1 pg (27.0-31.0); Mean Corpuscular Volume 93.5 fL (78.0-98.0); Mean Platelet Volume 8.3 fL (7.4-10.4); Platelet Count 164 thou/uL (130-400); RBC Distribution Width 14.9 % (11.5-14.5); Red Blood Cell (RBC) Count 3.98 mill/uL (4.70-6.10); White Blood Cell (WBC) Count 3.9 thou/uL (4.8-10.8)
[2018-05-26 18:16] LABS: ALT (SGPT) 7 U/L (8-55); AST (SGOT) 15 U/L (5-34); Albumin 3.4 g/dL (3.5-5.0); Alkaline Phosphatase 141 U/L (40-150); Anion Gap 12 mmol/L (10-20); BUN (Urea Nitrogen) 35 mg/dL (8.4-25.7); Bilirubin, Total 0.8 mg/dL (0.2-1.2); Calc. Creatinine Clearance 0 mL/min (70-130); Calcium 9.1 mg/dL (7.8-10.44); Carbon Dioxide 29 mmol/L (22-29); Chloride 103 mmol/L (98-107); Estimated GFR-MDRD 79; Globulin 5.4 g/dL (2.4-3.5); Glucose 105 mg/dL (70-105); Potassium 4.3 mmol/L (3.5-5.1); Protein, Total 8.8 g/dL (6.0-8.3); Sodium 140 mmol/L (136-145)
[2018-05-26 18:26] LABS: Bilirubin Negative (Negative); Blood, Urine Small (Negative); Clarity CLEAR (Clear); Glucose, Urine (Dipstick) Negative (Negative); Leukocyte Negative (Negative); Nitrite Negative (Negative); Protein, Urine (Dipstick) 30 mg/dL (Neg-Trace); Specific Gravity, Urine 1.014 (1.002-1.036)
[2018-05-26 18:28] LABS: Bacteria/HPF None Seen HPF (None Seen); Hyaline Casts/LPF 4-6 HYALINE CAST LPF (0-3 Hyaline); Squamous Epithelial 0-3 HPF (0-3); WBC/HPF 0-3 HPF (0-3)
[2018-05-26 21:29] LABS: BF Color Yellow; Body Fluid Source Peritoneal Fluid; Clarity Clear (Clear); Tube # 1; WBC Background Count 0.01
[2018-05-26 21:30] LABS: RBC Background Count 0.006
[2018-05-26 21:50] LABS: BF RBC Count - Manual 316 /cumm; BF WBC/Nonhematics Ct. - Manua 309 /cumm
[2018-05-26 22:25] LABS: BF Segmented Neutrophils 8 %; Cell Count Non Hematic 33 %; Lymphocytes 59 %
== END 2018-05-26 22:06 | disposition home or self-care (01) ==
LOC: ERS 16:37
DX: R18.8 Other ascites (principal); I11.0 Hypertensive heart disease with heart failure; I50.9 Heart failure, unspecified; E11.9 Type 2 diabetes mellitus without complications; Z87.891 Personal history of nicotine dependence; Z79.82 Long term (current) use of aspirin; Z79.84 Long term (current) use of oral hypoglycemic drugs; Z79.899 Other long term (current) drug therapy
CPT/HCPCS: 36415; 49083; 80053; 81003; 81015; 84484; 85025; 85060; 87070; 87205; 89051; 93005

== ENCOUNTER 2018-07-01 09:21 | Day surgery (SDC) | payer MEDICARE ==
[2018-06-28 13:15] VITALS: BMI 29.9
[~2018-07-01 09:21] MED LIST: Prevnar 13-Val Conj/PF 0.5 ML SYRINGE IM ONE
[2018-07-01 09:51] LABS: INR-International Normal Ratio 1.3; Prothrombin Time 16.7 SEC (12.0-14.7)
[2018-07-01 10:40] VITALS: BP 128/87; TEMP 98.4
[2018-07-01] MEDS ORDERED: Sodium Bicarbonate 2.5 MEQ/5 ML VIAL ONE (10:41)
--- NOTE | 2018-07-01 11:19 | ULT ---
Ultrasound-guided paracentesis: HISTORY: Symptomatic ascites TECHNIQUE: Informed consent obtained prior to the procedure. Preprocedural imaging demonstrated intraperitoneal free fluid. An area was marked in the Right lower quadrant , and then meticulously prepped and draped in normal s terile fashion and anesthetized with 1% buffered lidocaine. With direct sonographic guidance, a 19-gauge needle and 5 Turkish Yueh catheter were advanced into the abdomen. After the return of fluid, the catheter was advanced, and the needle was removed. Approximately 3.35 L of clear straw-colored fluid was aspirated. The patient tolerated the procedure well and without immediate complication. Only a trace amount of free fluid is seen in the right abdomen on sonographic evaluation postprocedure. A dry sterile dressing was placed at puncture site. IMPRESSION: Technically successful ultrasound-guided paracentesis.
[2018-07-01 13:21] LABS: BF Color Yellow; BF RBC Count - Manual 158 /cumm; BF WBC/Nonhematics Ct. - Manua 141 /cumm; Body Fluid Source Ascites Body Fluid; Clarity Hazy (Clear); Tube # EDTA
[2018-07-01 13:24] LABS: BF Segmented Neutrophils 1 %; Cell Count Non Hematic 68 %; Eosinophils 1 %; Lymphocytes 30 %
== END 2018-07-01 11:30 | disposition home or self-care (01) ==
LOC: ULT 09:21
PROVIDERS: ATTEND Internal Medicine Gastroenterology
PROC: 0W9G3ZZ Drainage of Peritoneal Cavity, Percutaneous Approach (ICD-10-PCS; principal; 2018-07-01)
DX: K74.60 Unspecified cirrhosis of liver (principal); R18.8 Other ascites; E11.9 Type 2 diabetes mellitus without complications; I11.0 Hypertensive heart disease with heart failure; I50.9 Heart failure, unspecified; B18.1 Chronic viral hepatitis B without delta-agent; Z87.891 Personal history of nicotine dependence; Z79.82 Long term (current) use of aspirin; Z79.84 Long term (current) use of oral hypoglycemic drugs; Z79.899 Other long term (current) drug therapy; Z88.0 Allergy status to penicillin; Z77.090 Contact with and (suspected) exposure to asbestos
CPT/HCPCS: 49083; 85060; 85610; 85730; 89051

== ENCOUNTER 2018-07-27 20:46 | Emergency (ER) | payer MEDICARE ==
[2018-07-27 22:09] LABS: #Eosinphils 0.2 thou/uL (0.0-0.7); #Monocytes 0.4 thou/uL (0.11-0.59); #Neutrophils 2.9 thou/uL (1.40-6.50); %Eosinophils 3.4 % (0.0-10.0); %Lymphocytes 23.1 % (21.0-51.0); %Monocytes 8.1 % (0.0-10.0); %Neutrophils 64.4 % (42.0-75.0); Hemoglobin 12.2 g/dL (14.0-18.0); Mean Corpuscular HGB CONC 31.7 g/dL (32.0-36.0); Mean Corpuscular Hemoglobin 28.9 pg (27.0-31.0); Mean Corpuscular Volume 91.4 fL (78.0-98.0); Mean Platelet Volume 8.9 fL (7.4-10.4); Platelet Count 138 thou/uL (130-400); RBC Distribution Width 14.1 % (11.5-14.5); Red Blood Cell (RBC) Count 4.21 mill/uL (4.70-6.10); White Blood Cell (WBC) Count 4.5 thou/uL (4.8-10.8)
[2018-07-27 22:31] LABS: ALT (SGPT) 7 U/L (8-55); AST (SGOT) 19 U/L (5-34); Albumin 3.3 g/dL (3.5-5.0); Alkaline Phosphatase 127 U/L (40-150); Anion Gap 14 mmol/L (10-20); BUN (Urea Nitrogen) 24 mg/dL (8.4-25.7); Bilirubin, Total 0.6 mg/dL (0.2-1.2); Calc. Creatinine Clearance 0 mL/min (70-130); Calcium 8.8 mg/dL (7.8-10.44); Carbon Dioxide 25 mmol/L (22-29); Chloride 102 mmol/L (98-107); Estimated GFR-MDRD 84; Glucose 98 mg/dL (70-105); Potassium 4.4 mmol/L (3.5-5.1); Protein, Total 8.3 g/dL (6.0-8.3); Sodium 137 mmol/L (136-145)
[2018-07-28 01:02] LABS: Body Fluid Source Ascites Body Fluid
[2018-07-28 01:03] LABS: BF Color Yellow; Clarity Clear (Clear); Tube # EDTA
[2018-07-28 01:04] LABS: BF WBC/Nonhematics Ct. - Manua 69 /cumm; RBC Background Count 0.005
[2018-07-28 01:05] LABS: BF RBC Count - Manual 273 /cumm
[2018-07-28 01:53] LABS: BF Segmented Neutrophils 1 %; Cell Count Non Hematic 55 %; Lymphocytes 44 %
== END 2018-07-28 01:13 | disposition home or self-care (01) ==
LOC: ERS 20:46
DX: R18.8 Other ascites (principal); I11.0 Hypertensive heart disease with heart failure; I50.9 Heart failure, unspecified; E11.9 Type 2 diabetes mellitus without complications; K74.60 Unspecified cirrhosis of liver; Z87.891 Personal history of nicotine dependence; Z79.82 Long term (current) use of aspirin; Z79.84 Long term (current) use of oral hypoglycemic drugs; Z79.899 Other long term (current) drug therapy
CPT/HCPCS: 36415; 49083; 80053; 82945; 84157; 85025; 85060; 87070; 87205; 89051

== ENCOUNTER 2018-08-26 08:43 | Emergency (ER) | payer MEDICARE ==
[2018-08-26 10:03] LABS: INR-International Normal Ratio 1.3; PTT 36.2 SEC (22.9-36.1)
[2018-08-26 10:22] LABS: ALT (SGPT) 9 U/L (8-55); AST (SGOT) 18 U/L (5-34); Albumin 3.5 g/dL (3.5-5.0); Alkaline Phosphatase 128 U/L (40-150); Anion Gap 15 mmol/L (10-20); BUN (Urea Nitrogen) 26 mg/dL (8.4-25.7); Bilirubin, Total 0.7 mg/dL (0.2-1.2); Calc. Creatinine Clearance 0 mL/min (70-130); Calcium 9.1 mg/dL (7.8-10.44); Carbon Dioxide 25 mmol/L (22-29); Chloride 101 mmol/L (98-107); Estimated GFR-MDRD 76; Globulin 5.3 g/dL (2.4-3.5); Glucose 94 mg/dL (70-105); Potassium 4.5 mmol/L (3.5-5.1); Protein, Total 8.8 g/dL (6.0-8.3); Sodium 136 mmol/L (136-145)
[2018-08-26 10:31] LABS: #Basophils 0.1 thou/uL (0.0-0.2); #Eosinphils 0.1 thou/uL (0.0-0.7); #Monocytes 0.4 thou/uL (0.11-0.59); #Neutrophils 2.4 thou/uL (1.40-6.50); %Basophils 1.5 % (0.0-1.0); %Eosinophils 2.3 % (0.0-10.0); %Lymphocytes 25.4 % (21.0-51.0); %Monocytes 9.1 % (0.0-10.0); %Neutrophils 61.7 % (42.0-75.0); Hemoglobin 12.3 g/dL (14.0-18.0); Mean Corpuscular HGB CONC 31.2 g/dL (32.0-36.0); Mean Corpuscular Hemoglobin 28.8 pg (27.0-31.0); Mean Corpuscular Volume 92.1 fL (78.0-98.0); Mean Platelet Volume 8.1 fL (7.4-10.4); Platelet Count 161 thou/uL (130-400); RBC Distribution Width 14.7 % (11.5-14.5); Red Blood Cell (RBC) Count 4.29 mill/uL (4.70-6.10); White Blood Cell (WBC) Count 3.9 thou/uL (4.8-10.8)
== END 2018-08-26 13:40 | disposition home or self-care (01) ==
LOC: ERS 08:43
DX: R18.8 Other ascites (principal); I11.0 Hypertensive heart disease with heart failure; I50.9 Heart failure, unspecified; E11.9 Type 2 diabetes mellitus without complications; Z79.84 Long term (current) use of oral hypoglycemic drugs; Z87.891 Personal history of nicotine dependence; Z79.82 Long term (current) use of aspirin
CPT/HCPCS: 36415; 49083; 80053; 85025; 85610; 85730

== ENCOUNTER 2018-09-28 21:01 | Emergency (ER) | payer MEDICARE ==
[2018-09-28 22:15] LABS: #Eosinphils 0.1 thou/uL (0.0-0.7); #Lymphocytes 1.1 thou/uL (1.20-3.40); #Monocytes 0.4 thou/uL (0.11-0.59); #Neutrophils 2.8 thou/uL (1.40-6.50); %Basophils 0.9 % (0.0-1.0); %Eosinophils 2.5 % (0.0-10.0); %Lymphocytes 24.8 % (21.0-51.0); %Monocytes 8.4 % (0.0-10.0); %Neutrophils 63.4 % (42.0-75.0); Hemoglobin 11.3 g/dL (14.0-18.0); Mean Corpuscular Hemoglobin 28.1 pg (27.0-31.0); Mean Corpuscular Volume 90.7 fL (78.0-98.0); Mean Platelet Volume 8.5 fL (7.4-10.4); Platelet Count 145 thou/uL (130-400); RBC Distribution Width 14.4 % (11.5-14.5); Red Blood Cell (RBC) Count 4.03 mill/uL (4.70-6.10); White Blood Cell (WBC) Count 4.4 thou/uL (4.8-10.8)
[2018-09-28 22:23] LABS: INR-International Normal Ratio 1.4; PTT 37.2 SEC (22.9-36.1); Prothrombin Time 17.2 SEC (12.0-14.7)
[2018-09-28 22:38] LABS: ALT (SGPT) 7 U/L (8-55); AST (SGOT) 16 U/L (5-34); Albumin 3.2 g/dL (3.5-5.0); Alkaline Phosphatase 115 U/L (40-150); Anion Gap 11 mmol/L (10-20); BUN (Urea Nitrogen) 31 mg/dL (8.4-25.7); Bilirubin, Total 0.5 mg/dL (0.2-1.2); Calc. Creatinine Clearance 0 mL/min (70-130); Calcium 8.9 mg/dL (7.8-10.44); Carbon Dioxide 28 mmol/L (22-29); Chloride 101 mmol/L (98-107); Estimated GFR-MDRD 65; Globulin 4.8 g/dL (2.4-3.5); Glucose 101 mg/dL (70-105); Potassium 4.4 mmol/L (3.5-5.1); Sodium 136 mmol/L (136-145)
[2018-09-28 23:55] LABS: BF Color Yellow; Body Fluid Source Peritoneal Fluid; Clarity Clear (Clear); RBC Background Count 0.002; Tube # 3
[2018-09-29 00:35] LABS: BF RBC Count - Manual 2975 /cumm; BF WBC/Nonhematics Ct. - Manua 233 /cumm
[2018-09-29 00:39] LABS: BF Segmented Neutrophils 1 %; Cell Count Non Hematic 69 %; Lymphocytes 30 %
== END 2018-09-29 00:28 | disposition home or self-care (01) ==
LOC: ERS 21:01
DX: R18.8 Other ascites (principal); E11.9 Type 2 diabetes mellitus without complications; I11.0 Hypertensive heart disease with heart failure; I50.9 Heart failure, unspecified; Z87.891 Personal history of nicotine dependence; Z79.899 Other long term (current) drug therapy; Z79.82 Long term (current) use of aspirin; Z79.84 Long term (current) use of oral hypoglycemic drugs
CPT/HCPCS: 36415; 49082; 80053; 83615; 85025; 85060; 85610; 85730; 87070; 87205; 89051

== ENCOUNTER 2018-10-28 17:40 | Emergency (ER) | payer MEDICARE ==
[2018-10-28 18:53] LABS: #Eosinphils 0.1 thou/uL (0.0-0.7); #Lymphocytes 0.9 thou/uL (1.20-3.40); #Monocytes 0.3 thou/uL (0.11-0.59); #Neutrophils 2.2 thou/uL (1.40-6.50); %Basophils 0.1 % (0.0-1.0); %Eosinophils 2.1 % (0.0-10.0); %Lymphocytes 26.5 % (21.0-51.0); %Monocytes 9.1 % (0.0-10.0); %Neutrophils 62.2 % (42.0-75.0); Hemoglobin 11.6 g/dL (14.0-18.0); Mean Corpuscular Hemoglobin 29.3 pg (27.0-31.0); Mean Corpuscular Volume 91.6 fL (78.0-98.0); Mean Platelet Volume 9.1 fL (7.4-10.4); Platelet Count 132 thou/uL (130-400); RBC Distribution Width 14.4 % (11.5-14.5); Red Blood Cell (RBC) Count 3.96 mill/uL (4.70-6.10); White Blood Cell (WBC) Count 3.5 thou/uL (4.8-10.8)
[2018-10-28 19:05] LABS: INR-International Normal Ratio 1.4; PTT 38.7 SEC (22.9-36.1); Prothrombin Time 16.7 SEC (12.0-14.7)
[2018-10-28 19:20] LABS: ALT (SGPT) 8 U/L (8-55); AST (SGOT) 18 U/L (5-34); Albumin 3.2 g/dL (3.5-5.0); Alkaline Phosphatase 120 U/L (40-150); Anion Gap 12 mmol/L (10-20); BUN (Urea Nitrogen) 22 mg/dL (8.4-25.7); Bilirubin, Total 0.7 mg/dL (0.2-1.2); CK (CPK) 207 U/L (30-200); Calc. Creatinine Clearance 0 mL/min (70-130); Calcium 8.9 mg/dL (7.8-10.44); Carbon Dioxide 28 mmol/L (22-29); Chloride 99 mmol/L (98-107); Estimated GFR-MDRD 80; Globulin 4.9 g/dL (2.4-3.5); Glucose 121 mg/dL (70-105); Lipase 14 U/L (8-78); Potassium 4.3 mmol/L (3.5-5.1); Protein, Total 8.1 g/dL (6.0-8.3); Sodium 135 mmol/L (136-145)
--- NOTE | 2018-10-28 19:20 | RAD ---
CHEST 1 VIEW: Date: 10/28/18 HISTORY: Dyspnea. COMPARISON: 04/16/18. FINDINGS: Cardiomegaly. Pulmonary vessels are prominent. Patchy interstitial opacities, without consolidation o r mass. No pleural effusion or pneumothorax. Lung volumes are diminished, likely due to poor inspirat ory effort. IMPRESSION: 1. Cardiomegaly. 2. Interstitial opacities, likely due to edema or infiltrate. POS: [facility]
[2018-10-29 01:04] LABS: Body Fluid Source Peritoneal Fluid; RBC Count-Automated (BF) 714 /cumm; Tube # 1; WBC/Nucleated-Auto (BF) 53 uL
[2018-10-29 01:05] LABS: BF Color Yellow; Clarity Clear (Clear)
[2018-10-29 01:09] LABS: Cell Count Non Hematic 79 %; Lymphocytes 21 %
[2018-10-29 01:31] LABS: Bacteria/HPF None Seen HPF (None Seen); Bilirubin Negative (Negative); Blood, Urine 1+ (Negative); Clarity Clear (Clear); Glucose, Urine (Dipstick) Normal (Negative); Leukocyte Negative Leu/uL (Negative); Nitrite 2+ (Negative); Protein, Urine (Dipstick) 50 mg/dL (Neg-Trace); RBC/HPF 0-3 HPF (0-3); Squamous Epithelial 0-3 HPF (0-3); Urobilinogen Normal mg/dL (Less than 2); WBC/HPF 0-3 HPF (0-3)
--- NOTE | 2018-11-02 15:27 | EKG ---
Test Reason : Blood Pressure : / mmHG Vent. Rate : 066 BPM Atrial Rate : 066 BPM P-R Int : 192 ms QRS Dur : 094 ms QT Int : 430 ms P-R-T Axes : 046 -02 094 degrees QTc Int : 450 ms Normal sinus rhythm with sinus arrhythmia Nonspecific T wave abnormality Abnormal ECG Confirmed by SHIRLEY HILL, ROSELINE ([id number]), clinical editor YUE AGUIRRE ([id number]) on 11/02/2018 3:26:36 PM Referred By: Confirmed By:ROSELINE WATSON MD
== END 2018-10-29 01:48 | disposition home or self-care (01) ==
LOC: ERS 17:40
DX: E87.70 Fluid overload, unspecified (principal); N39.0 Urinary tract infection, site not specified; Z87.891 Personal history of nicotine dependence; I11.0 Hypertensive heart disease with heart failure; I50.9 Heart failure, unspecified; E11.9 Type 2 diabetes mellitus without complications; Z79.899 Other long term (current) drug therapy; Z79.82 Long term (current) use of aspirin
CPT/HCPCS: 36415; 49082; 71045; 80053; 81003; 81015; 82140; 82550; 83690; 83880; 84484; 85025; 85060; 85610; 85730; 87070; 87086; 87205; 89051; 93005

== ENCOUNTER 2018-11-20 18:16 | Emergency (ER) | payer MEDICARE, MEDICAID ==
[2018-11-20 18:56] LABS: #Eosinphils 0.1 thou/uL (0.0-0.7); #Lymphocytes 1.1 thou/uL (1.20-3.40); #Monocytes 0.4 thou/uL (0.11-0.59); #Neutrophils 2.7 thou/uL (1.40-6.50); %Basophils 0.7 % (0.0-1.0); %Eosinophils 2.1 % (0.0-10.0); %Lymphocytes 24.3 % (21.0-51.0); %Monocytes 9.5 % (0.0-10.0); %Neutrophils 63.6 % (42.0-75.0); Mean Corpuscular HGB CONC 32.4 g/dL (32.0-36.0); Mean Corpuscular Hemoglobin 29.5 pg (27.0-31.0); Mean Platelet Volume 9.3 fL (7.4-10.4); Platelet Count 132 thou/uL (130-400); RBC Distribution Width 14.5 % (11.5-14.5); Red Blood Cell (RBC) Count 4.06 mill/uL (4.70-6.10); White Blood Cell (WBC) Count 4.3 thou/uL (4.8-10.8)
[2018-11-20 19:16] LABS: ALT (SGPT) 7 U/L (8-55); AST (SGOT) 16 U/L (5-34); Albumin 3.2 g/dL (3.5-5.0); Alkaline Phosphatase 126 U/L (40-110); Anion Gap 11 mmol/L (10-20); BUN (Urea Nitrogen) 22 mg/dL (8.4-25.7); Bilirubin, Total 0.5 mg/dL (0.2-1.2); Calc. Creatinine Clearance 0 mL/min (70-130); Calcium 8.5 mg/dL (7.8-10.44); Carbon Dioxide 27 mmol/L (22-29); Chloride 102 mmol/L (98-107); Estimated GFR-MDRD 70; Globulin 4.8 g/dL (2.4-3.5); Glucose 103 mg/dL (70-105); Lipase 13 U/L (8-78); Potassium 4.6 mmol/L (3.5-5.1); Sodium 135 mmol/L (136-145)
[2018-11-20] MEDS ORDERED: Furosemide 40 MG/4 ML VIAL ONE (21:05)
[2018-11-21 01:09] LABS: Fluid, Protein 4.8 g/dL (Not Available)
[2018-11-21 01:25] LABS: RBC Count-Automated (BF) 2166 /cumm; WBC/Nucleated-Auto (BF) 45 uL
[2018-11-21 01:46] LABS: BF Color Yellow; Body Fluid Source Paracentesis Fluid; Clarity Hazy (Clear); Tube # Y
[2018-11-21 01:48] LABS: BF Segmented Neutrophils 2 %; Cell Count Non Hematic 62 %; Lymphocytes 35 %
== END 2018-11-21 00:30 | disposition home or self-care (01) ==
LOC: ERS 18:16
DX: K74.60 Unspecified cirrhosis of liver (principal); R18.8 Other ascites; E11.9 Type 2 diabetes mellitus without complications; I11.0 Hypertensive heart disease with heart failure; I50.9 Heart failure, unspecified; Z87.891 Personal history of nicotine dependence; Z79.82 Long term (current) use of aspirin; Z79.899 Other long term (current) drug therapy
CPT/HCPCS: 36415; 49083; 80053; 82945; 83690; 84157; 85025; 85060; 87070; 87205; 89051; 96374; J1940

== ENCOUNTER 2018-12-08 02:49 | Emergency (ER) | payer MEDICARE, MEDICAID | END 2018-12-08 03:44 | disposition home or self-care (01) | LOC: ERS 02:49 | DX: R14.0 Abdominal distension (gaseous) (principal); I11.0 Hypertensive heart disease with heart failure; I50.9 Heart failure, unspecified; E11.9 Type 2 diabetes mellitus without complications; Z87.891 Personal history of nicotine dependence ==

== ENCOUNTER 2018-12-08 09:00 | Emergency (ER) | payer MEDICARE, MEDICAID ==
[2018-12-08 10:20] LABS: ALT (SGPT) 7 U/L (8-55); AST (SGOT) 18 U/L (5-34); Albumin 3.2 g/dL (3.5-5.0); Alkaline Phosphatase 122 U/L (40-110); Anion Gap 16 mmol/L (10-20); BUN (Urea Nitrogen) 24 mg/dL (8.4-25.7); Bilirubin, Total 0.9 mg/dL (0.2-1.2); Calc. Creatinine Clearance 0 mL/min (70-130); Calcium 8.7 mg/dL (7.8-10.44); Carbon Dioxide 27 mmol/L (22-29); Chloride 100 mmol/L (98-107); Estimated GFR-MDRD 69; Globulin 4.7 g/dL (2.4-3.5); Glucose 88 mg/dL (70-105); Lipase 6 U/L (8-78); Potassium 4.2 mmol/L (3.5-5.1); Protein, Total 7.9 g/dL (6.0-8.3); Sodium 139 mmol/L (136-145)
[2018-12-08 10:21] LABS: Hemoglobin 12.3 g/dL (14.0-18.0); Mean Corpuscular HGB CONC 32.3 g/dL (32.0-36.0); Mean Corpuscular Hemoglobin 29.4 pg (27.0-31.0); Mean Corpuscular Volume 91.2 fL (78.0-98.0); Mean Platelet Volume 9.3 fL (7.4-10.4); Platelet Count 127 thou/uL (130-400); RBC Distribution Width 14.8 % (11.5-14.5); Red Blood Cell (RBC) Count 4.17 mill/uL (4.70-6.10); White Blood Cell (WBC) Count 3.7 thou/uL (4.8-10.8)
[2018-12-08 10:41] LABS: Large Platelets SLIGHT; Lymphocytes 21 % (21-51); MDiff Complete? YES; Monocytes 18 % (0-10); Neutrophil 61 % (42-75); Platelet Morphology Comment Appears Decreased
[2018-12-08 13:42] LABS: RBC Count-Automated (BF) 507 /cumm; WBC/Nucleated-Auto (BF) 76 uL
[2018-12-08 13:55] LABS: Body Fluid Source Ascites Body Fluid
[2018-12-08 13:56] LABS: BF Color Yellow; Clarity Hazy (Clear); Tube # 2
[2018-12-08 14:03] LABS: BF Segmented Neutrophils 3 %; Cell Count Non Hematic 53 %; Lymphocytes 44 %
== END 2018-12-08 14:13 | disposition home or self-care (01) ==
LOC: ERS 09:00
DX: K74.60 Unspecified cirrhosis of liver (principal); I50.9 Heart failure, unspecified; E11.9 Type 2 diabetes mellitus without complications; I11.0 Hypertensive heart disease with heart failure; Z79.899 Other long term (current) drug therapy; Z79.84 Long term (current) use of oral hypoglycemic drugs; Z79.82 Long term (current) use of aspirin
CPT/HCPCS: 36415; 49082; 80053; 83690; 85025; 85060; 87070; 87205; 89051; 99281

== ENCOUNTER 2018-12-11 18:46 | Inpatient (IN) | payer MEDICARE, MEDICAID ==
[2018-12-11] MEDS ORDERED: Nitroglycerin 2% Ointment 1 INCH/1 GM Packet ONE (19:22)
[2018-12-11] MEDS ORDERED: Furosemide 40 MG/4 ML VIAL ONE (19:22)
[2018-12-11 19:23] LABS: #Eosinphils 0.2 thou/uL (0.0-0.7); #Lymphocytes 1.3 thou/uL (1.20-3.40); #Monocytes 0.6 thou/uL (0.11-0.59); #Neutrophils 2.6 thou/uL (1.40-6.50); %Basophils 0.3 % (0.0-1.0); %Eosinophils 3.5 % (0.0-10.0); %Lymphocytes 27.9 % (21.0-51.0); %Monocytes 13.3 % (0.0-10.0); %Neutrophils 55.1 % (42.0-75.0); Hemoglobin 13.8 g/dL (14.0-18.0); Mean Corpuscular HGB CONC 30.7 g/dL (32.0-36.0); Mean Corpuscular Hemoglobin 27.8 pg (27.0-31.0); Mean Corpuscular Volume 90.6 fL (78.0-98.0); Mean Platelet Volume 8.8 fL (7.4-10.4); Platelet Count 151 thou/uL (130-400); RBC Distribution Width 14.7 % (11.5-14.5); Red Blood Cell (RBC) Count 4.97 mill/uL (4.70-6.10); White Blood Cell (WBC) Count 4.6 thou/uL (4.8-10.8)
--- NOTE | 2018-12-11 19:35 | RAD ---
PORTABLE CHEST: 12/11/18 HISTORY: Cough. COMPARISON: 10/28/18. Cardiomegaly again noted. Lungs appear clear of infiltrate. Vascularity is upper normal and stable. I nterstitium is mildly prominent but stable. No effusion or acute process. IMPRESSION: No acute process. No interval change. POS: [facility]
[2018-12-11 19:48] LABS: ALT (SGPT) Less than 7 U/L (8-55); AST (SGOT) 18 U/L (5-34); Alkaline Phosphatase 129 U/L (40-110); Anion Gap 13 mmol/L (10-20); BUN (Urea Nitrogen) 26 mg/dL (8.4-25.7); Bilirubin, Total 0.8 mg/dL (0.2-1.2); CK (CPK) 204 U/L (30-200); Calc. Creatinine Clearance 0 mL/min (70-130); Calcium 8.3 mg/dL (7.8-10.44); Carbon Dioxide 29 mmol/L (22-29); Chloride 98 mmol/L (98-107); Estimated GFR-MDRD 60; Globulin 4.4 g/dL (2.4-3.5); Glucose 78 mg/dL (70-105); Lipase Less than 4 U/L (8-78); Potassium 4.6 mmol/L (3.5-5.1); Protein, Total 7.4 g/dL (6.0-8.3); Sodium 135 mmol/L (136-145)
[2018-12-11] MEDS ORDERED: Aspirin 325 MG TAB ONE (20:45)
--- NOTE | 2018-12-11 21:52 | PDOC.FPRHP ---
- History of Present Illness Chief Complaint: Shortness of breath History of Present Illness: 58-year-old male with past medical history of heart failure with acute ejection fraction of 15 to 20%. Presented to the ED complaining of shortness of breath. Patient stated that he took two of his home diuretic pills earlier this evening to improve his breathing. Later this evening he noted that he did not have improvement prompting him to go to the ED for further evaluation. Upon arrival oxygen saturation was 85%. Patient was started on BiPAP and quickly had an improvement of his saturation to 100%. At time of evaluation he stated that he was feeling much better. Patient is stated that the patient was previously evaluated for an AICD but deferred, now she and patient feel that he is more ready for that conversation to consider the procedure going forward. Pt has been seen by heart failure clinic previously. 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 denies: exercise intolerance Cardiovascular: reports: edema. denies: chest pain, palpitation Gastrointestinal: denies: nausea, vomiting, diarrhea Genitourinary: denies: dysuria, polyuria Skin: denies: rashes, lesions Musculoskeletal: denies: pain, tenderness Neurological: denies: syncope, weakness Psychological: denies: depression, other - Vital signs BP: 126/74, Pulse: 69, Resp: 18, Temp: 98.2 (Oral), Pain: 0, O2 sat: 97 on Bipap - Physical Exam Constitutional: NAD, awake, alert and oriented, well developed HEENT: normocephalic and atraumatic, grossly normal vision, grossly normal hearing Neck: FROM, no JVD Heart: RRR, normal S1/S2 -Heart: 2+ bilateral LE pitting edema -Lungs: Diffuse rales and expiratory wheezing, good air movement Abdomen: soft, non-tender -Abdomen: Distended, mildly tympanic Musculoskeletal: normal structure, normal tone, ROM grossly normal Neurological: no focal deficit, CN II-XII intact Skin: no rash/lesions, capillary refill <2 seconds Heme/Lymphatic: no unusual bruising or bleeding, no purpura Psychiatric: normal mood and affect, good judgment and insight FMR H&P: Results - Labs Result Diagrams: 12/11/18 19:15 12/11/18 19:15 Lab results: WBC 4.6 thou/uL (4.8-10.8) L 12/11/18 19:15 Hgb 13.8 g/dL (14.0-18.0) L 12/11/18 19:15 Hct 45.0 % (42.0-52.0) 12/11/18 19:15 MCV 90.6 fL (78.0-98.0) 12/11/18 19:15 Plt Count 151 thou/uL (130-400) 12/11/18 19:15 Neutrophils % 55.1 % (42.0-75.0) 12/11/18 19:15 Sodium 135 mmol/L (136-145) L 12/11/18 19:15 Potassium 4.6 mmol/L (3.5-5.1) 12/11/18 19:15 Chloride 98 mmol/L (98-107) 12/11/18 19:15 Carbon Dioxide 29 mmol/L (22-29) 12/11/18 19:15 BUN 26 mg/dL (8.4-25.7) H 12/11/18 19:15 Creatinine 1.46 mg/dL (0.7-1.3) H 12/11/18 19:15 Glucose 78 mg/dL (70-105) 12/11/18 19:15 Calcium 8.3 mg/dL (7.8-10.44) 12/11/18 19:15 Total Bilirubin 0.8 mg/dL (0.2-1.2) 12/11/18 19:15 AST 18 U/L (5-34) 12/11/18 19:15 ALT Less than 7 U/L (8-55) L 12/11/18 19:15 Alkaline Phosphatase 129 U/L (40-110) H 12/11/18 19:15 Creatine Kinase 204 U/L (30-200) H 12/11/18 19:15 B-Natriuretic Peptide 1299.9 pg/mL (0-100) H 12/11/18 19:15 Serum Total Protein 7.4 g/dL (6.0-8.3) 12/11/18 19:15 Albumin 3.0 g/dL (3.5-5.0) L 12/11/18 19:15 Lipase Less than 4 U/L (8-78) L 12/11/18 19:15 FMR H&P: A/P - Problem List (1) HTN (hypertension) Current Visit: Yes Status: Acute Code(s): I10 - ESSENTIAL (PRIMARY) HYPERTENSION (2) Acute exacerbation of congestive heart failure Current Visit: No Status: Chronic Code(s): I50.9 - HEART FAILURE, UNSPECIFIED (3) Cirrhosis of liver Current Visit: No Status: Chronic Code(s): K74.60 - UNSPECIFIED CIRRHOSIS OF LIVER (4) DM2 (diabetes mellitus, type 2) Current Visit: No Status: Chronic (5) Hepatitis B Current Visit: No Status: Chronic (6) Hx of coronary artery disease Current Visit: Yes Status: Acute Code(s): Z86.79 - PERSONAL HISTORY OF OTHER DISEASES OF THE CIRCULATORY SYSTEM - Plan Acute Hypoxic Respiratory Failure - Likely 2/2 CHF exacerbation - Improved on BiPap, will continue to plan for trial off once stabilized - 40 IV lasix in ED, will continue 40 BID tmrw - Strict I/O - Daily weights - Consider cardiology consult for further discussion of AICD in pt w/ EF: 15-20% HTN - Continue coreg CAD - Continue home asa Cirrhosis - Paracentesis 5 days ago, ascites controlled at this time - Continue home spironolactone DM II - Continue home metformin Diet: Dispo: Admit to telemetry. Continue Bipap w/ plan for trial off positive pressure ventilation. FMR H&P: Upper Level - Plan Date/Time: 12/11/182151 I, Raphael Burns MD, have evaluated this patient and agree with findings/plan as outlined by internal sales engineer resident. Pertinent changes/additions are listed here. Nimesh Shelby is a 58 year old M with a PMH of CHF (Echo in 01/2018, EF 15-20 %), Hx of Cirrhosis 2/2 hep B-gets monthly paracenteses, DM2, HTN who presented to the ED with a 1 wk hx of progressively worsening dyspnea and wheezes. Patient's last paracentesis was about one week ago and about 4 L were removed, per . Patient has [employer] [employer]her in that he has seen recently and has not kept follow up appointments with PCP or HF Clinic. Pt reports adherence to medication regimen. Denies any fever, chills, chest pain, headaches, n/v. Upon presentation to ED, patient's sats were 88% on RA. Bipap was started and patient reported improvement in respiratory symptoms. When seen by admitting team, patient was not tachypneic and was 98% on BiPAP. PE was significant for diffuse rales bilaterally and expiratory wheezes. Abdominal exam showed distended abdomen with fluid wave. LE edema bilaterally. Patient was given ASA , duonebs, nitro, lasix 40 mg IVP in ED. EKG showed NSR with no ST changes, initial trop neg. Neg for Influenza A/B, BNP was 1299, Na was 135, Cr 1.46. CXR showed cardiomegaly, no acute process. Admit patient to IMCU for Acute hypoxic respiratory failure 2/2 CHF exacerbation requiring Bipap. Continue IV Lasix 40 mg BID, duonebs. Wean bipap as tolerated. Daily weights and strict I/ Os. Consult HF clinic. Anticipate hospital stay > 48 hours. Please see internal sales engineer note above for full H&P, which I have reviewed and agree with. Addendum - Attending - Attending Attestation Date/Time: 12/12/18 0030 I personally evaluated the patient and discussed the management with Dr. Johnson on 12/11/2018 I agree with the History, Examination, Assessment and Plan documented above with any addition or exceptions noted below - 58 yo male with h/o cirrhosis, chronic Hep B, HFrEF (EF=15-20%) and DM presented c/o SOB and increased edema over last several days. Denies any CP, VIGIL, diaphoresis. Reports compliance with medications. PMH/PSH/Meds/SH reviewed and agree with resident's documentation. Exam repeated by me and agree with resident's findings. Labs: H/H=13.8/45.0, Na= 135, K=4.6, Bun/Cr=26/1.46, AST 18, ALT<7, Gluc=78, FXW=1036.9 A/P: 1) Dyspnea secondary to CHF exacerbation- Currently on Bipap- wean as tolerated. Lasix 40 mg IV given in ER with diuresis- pt states he is feeling better; Admit to IMCU. Continue home meds, 2) HFrEF- continue lasix, ruby 3) DM- continue home meds.
[2018-12-12] MEDS ORDERED: Acetaminophen 325 MG TAB PO PRN (00:26)
[2018-12-12 01:14] VITALS: BMI 30.1
[2018-12-12 01:41] LABS: Troponin I Less than 0.010 ng/mL (< 0.028)
[2018-12-12 06:02] LABS: #Eosinphils 0.3 thou/uL (0.0-0.7); #Lymphocytes 1.3 thou/uL (1.20-3.40); #Monocytes 0.6 thou/uL (0.11-0.59); #Neutrophils 2.5 thou/uL (1.40-6.50); %Basophils 0.8 % (0.0-1.0); %Eosinophils 5.7 % (0.0-10.0); %Lymphocytes 28.3 % (21.0-51.0); %Monocytes 11.9 % (0.0-10.0); %Neutrophils 53.3 % (42.0-75.0); Hemoglobin 12.2 g/dL (14.0-18.0); Mean Corpuscular Volume 90.3 fL (78.0-98.0); Mean Platelet Volume 8.8 fL (7.4-10.4); Platelet Count 150 thou/uL (130-400); RBC Distribution Width 14.6 % (11.5-14.5); Red Blood Cell (RBC) Count 4.37 mill/uL (4.70-6.10); White Blood Cell (WBC) Count 4.7 thou/uL (4.8-10.8)
[2018-12-12] MEDS: Furosemide 40 MG/4 ML VIAL SLOW IVP SCH ×2 (06:05→14:30)
[2018-12-12 06:24] LABS: Anion Gap 12 mmol/L (10-20); BUN (Urea Nitrogen) 28 mg/dL (8.4-25.7); Calc. Creatinine Clearance 79 mL/min (70-130); Calcium 7.9 mg/dL (7.8-10.44); Carbon Dioxide 29 mmol/L (22-29); Chloride 98 mmol/L (98-107); Estimated GFR-MDRD 69; Glucose 68 mg/dL (70-105); Sodium 135 mmol/L (136-145)
--- NOTE | 2018-12-12 06:56 | PDOC.FM ---
- Subjective Subjective: Able to wean from bipap overnight. Reports feeling much better. Chest pain has resolved and SOB improved. Reports after his paracentesis he was experiencing abdominal discomfort which caused him to drink too much OJ- over his fluid restriction. He declined AICD placement in the past but is now interested. Reports duonebs help with SOB. - Objective MAR Reviewed: Yes Vital Signs & Weight: Vital Signs (12 hours) Temp Pulse Resp Pulse Ox 12/12/18 06:40 67 12 12/12/18 05:00 98.7 F 12/12/18 01:36 64 15 96 12/12/18 01:28 98 12/12/18 01:00 98.2 F 97 Weight Weight 89.9 kg I&O: 12/10/18 12/11/18 12/12/18 06:59 06:59 06:59 Intake Total 20 Output Total 450 Balance -430 Result Diagrams: 12/13/18 04:48 12/15/18 04:55 Phys Exam - Physical Examination Constitutional: NAD HEENT: moist MMs Neck: supple Diffuse wheezing Cardiovascular: RRR Gastrointestinal: soft, positive bowel sounds Musculoskeletal: pulses present trace b/l LE edema Neurological: moves all 4 limbs Psychiatric: normal affect, A&O x 3 Skin: no rash Dx/Plan - Plan Plan: Acute Hypoxic Respiratory Failure 2/2 HFrEF exacerbation likely due to fluid restriction noncompliance - Echo 01/2018: EF 15-20% - BNP 1299. CXR: Cardiomegaly, no acute process - Trops neg x3, EKG no signs of ischemia. Flu neg - Off Bipap this AM - Continue IV lasix and duonebs - Strict I/O, fluid restriction, Daily weights - Cardiology consult for further discussion of AICD in pt w/ EF: 15-20% - Continue BB, Spironolactone. Start low dose lisinopril, will need follow up BMP - Transfer to medical floor Cirrhosis 2/2 Heb B - Monthly paracentesis, last one 4 wks ago. 4L removed CKD - Cr 1.46 - continue to monitor Normocytic Anemia - Continue to monitor HTN - Continue coreg CAD - Continue home asa - Will discuss starting Statin with pt. Cirrhosis - Paracentesis 5 days ago, ascites controlled at this time - Continue home spironolactone DM II - Continue home metformin Code Status: FULL DVT ppx: Lovenox GI ppx: Pepcid Addendum - Attending - Attending Attestation Date/Time: 12/12/18 1010 I personally evaluated the patient and discussed the management with Dr. Arzola I agree with the History, Examination, Assessment and Plan documented above with any addition or exceptions noted below. HD#1 Patient improved this morning. No acute changes overnight. Patient to be transferred to tele. Continue to diures. Cards consulted. Continue max therapy. Needs Lifevest. Ok with AICD placement as needed. Repeat ECHO pending. Monitor closely. Eliezer
[2018-12-12] MEDS: Enoxaparin Sodium 40 MG/0.4 ML SYRINGE SC SCH (08:33)
[2018-12-12] MEDS: Aspirin Chewable 81 MG TAB PO SCH (08:33)
[2018-12-12] MEDS: Spironolactone 25 MG TAB PO SCH (08:34)
[2018-12-12] MEDS: metFORMIN 500 MG TAB PO SCH (08:34)
[2018-12-12] MEDS ORDERED: FLU VACC QS2019-20(6MOS UP)/PF 60 MCG/0.5 ML SYRINGE IM ONE (09:00)
[2018-12-12] MEDS ORDERED: Carvedilol 25 MG TAB PO SCH (09:00)
[2018-12-12 18:20] LABS: Bilirubin Negative (Negative); Blood, Urine Negative (Negative); Clarity Clear (Clear); Glucose, Urine (Dipstick) Normal (Negative); Leukocyte Negative Leu/uL (Negative); Nitrite Negative (Negative); Protein, Urine (Dipstick) Negative (Neg-Trace); RBC/HPF 0-3 HPF (0-3); Squamous Epithelial None Seen HPF (0-3); Urobilinogen Normal mg/dL (Less than 2); WBC/HPF 0-3 HPF (0-3)
[2018-12-12 18:21] LABS: Bacteria/HPF 1+ HPF (None Seen)
[2018-12-12 18:22] LABS: Urine Culture Reflex No No
[2018-12-12 18:29] LABS: Amphetamine Not Detected (NotDetected); Barbiturates Screen Not Detected (NotDetected); Benzodiazepine Screen Not Detected (NotDetected); Cocaine Metabolite Screen Not Detected (NotDetected); Medtox Control Line Valid? VALID (VALID); Medtox Reader # READER 1; Methadone Not Detected (NotDetected); Methamphetamine Not Detected (NotDetected); Opiate Screen Not Detected (NotDetected); Oxycodone Screen Not Detected (NotDetected); Phencyclidine (PCP) Not Detected (NotDetected); THC/Cannabinoid Screen Not Detected (NotDetected); Tricyclic Screen Not Detected (NotDetected)
[2018-12-12] MEDS: Carvedilol 25 MG TAB PO SCH (19:55)
--- NOTE | 2018-12-13 00:15 | CON ---
DATE OF CONSULTATION: 12/12/2018 REASON FOR CONSULTATION: Congestive heart failure, systolic, acute on chronic. HISTORY OF PRESENT ILLNESS: Mr. Nimesh Shelby is a very pleasant 58-year-old man. He has a history of nonischemic cardiomyopathy. He is admitted to the hospital with refractory congestive heart failure, severe trouble breathing, and orthopnea. This responded to intravenous diuretics, and he is beginning to feel better. The patient did have a previous evaluation with cardiac catheterization showing no obstructive coronary artery disease in 2016. Ejection fraction is 25% at that time. He had mild nonobstructive atherosclerotic heart disease that was certainly not the etiology of his cardiomyopathy. The patient, according to the notes, did have a discussion about LifeVest, but previously declined. Now, he states he is open to discussing that. He is not having chest pain or pressure. MEDICATIONS: Prior to admission, he was taking, 1. Spironolactone 25 mg a day. 2. Metformin. 3. Carvedilol 25 mg twice a day. 4. Furosemide 40 mg a day. 5. Aspirin. 6. He was not taking lisinopril. It sounds like he followed up initially with the heart failure clinic, but then later he did not go back. He said he also has been having some financial problems. ALLERGIES: TO PENICILLIN. REVIEW OF SYSTEMS: CONSTITUTIONAL: No significant weight gain or loss. VISION: No changes. HEARING: No changes. PULMONARY: No cough or wheezing. GASTROINTESTINAL: No nausea, vomiting, or diarrhea. SKIN: No rashes. NEUROLOGIC: No unilateral weakness or numbness. PSYCHIATRIC: No unusual depression or anxiety. PHYSICAL EXAMINATION: GENERAL: This is a pleasant gentleman, in no distress. VITAL SIGNS: Blood pressure 114/73. Pulse 60s, sinus. EYES: Sclerae nonicteric. MOUTH: Mucous membranes moist. NECK: Neck veins are distended up to the angle of the jaw. Carotids have normal upstrokes. No bruits. LUNGS: Bibasilar rales. CARDIAC: Normal S1, normal S2. I do not hear murmur, rub, or gallop. ABDOMEN: Soft and nontender. No hepatosplenomegaly. EXTREMITIES: Warm, dry. No clubbing or cyanosis. Only minimal nonsignificant edema. PERTINENT LABORATORY DATA: Potassium is 4.0. Creatinine is 1.46, now it is 1.29. BNP 1299.9. Troponin levels were negative. IMAGING DATA: Chest x-ray shows massive cardiomegaly with pulmonary congestion noted to my interpretation. ASSESSMENT: 1. Nonischemic cardiomyopathy. 2. Systolic congestive heart failure, acute on chronic. 3. Renal insufficiency, stage 2. Estimated GFR now is 69. 4. Previously declined defibrillator. PLAN: 1. We would add Entresto. He is on Medicare-Medicaid. I believe he should be able to obtain Entresto. 2. Reduce carvedilol for now until he is compensated. 3. Continue spironolactone and furosemide. 4. Basic metabolic and toxicology level screen tomorrow. 5. If he has not been on PHILLY inhibitors, would not be a candidate to proceed directly to defibrillator implantation and we could have discussion about the LifeVest versus waiting with medical therapy and we will have that discussion with him tomorrow. For now, the goal is to try to get him out of congestive heart failure. Job ID: [id number]
[2018-12-13 05:16] LABS: #Eosinphils 0.2 thou/uL (0.0-0.7); #Lymphocytes 1.5 thou/uL (1.20-3.40); #Monocytes 0.4 thou/uL (0.11-0.59); #Neutrophils 3.1 thou/uL (1.40-6.50); %Basophils 0.8 % (0.0-1.0); %Eosinophils 3.9 % (0.0-10.0); %Lymphocytes 28.7 % (21.0-51.0); %Monocytes 8.1 % (0.0-10.0); %Neutrophils 58.5 % (42.0-75.0); Hemoglobin 12.3 g/dL (14.0-18.0); Mean Corpuscular HGB CONC 31.8 g/dL (32.0-36.0); Mean Corpuscular Hemoglobin 28.6 pg (27.0-31.0); Mean Platelet Volume 8.5 fL (7.4-10.4); Platelet Count 160 thou/uL (130-400); RBC Distribution Width 14.3 % (11.5-14.5); Red Blood Cell (RBC) Count 4.31 mill/uL (4.70-6.10); White Blood Cell (WBC) Count 5.3 thou/uL (4.8-10.8)
[2018-12-13] MEDS: Furosemide 40 MG/4 ML VIAL SLOW IVP SCH ×2 (05:22→12:59)
[2018-12-13 05:37] LABS: Anion Gap 11 mmol/L (10-20); BUN (Urea Nitrogen) 31 mg/dL (8.4-25.7); Calc. Creatinine Clearance 81 mL/min (70-130); Calcium 7.9 mg/dL (7.8-10.44); Carbon Dioxide 32 mmol/L (22-29); Chloride 96 mmol/L (98-107); Estimated GFR-MDRD 71; Glucose 127 mg/dL (70-105); Sodium 135 mmol/L (136-145)
--- NOTE | 2018-12-13 06:38 | PDOC.FM ---
- Subjective Subjective: No overnight events. Slept well. Still requiring O2. Endorses SOB but reports significant improvement. Reports frequent urination 2/2 lasix. No other complaints. - Objective MAR Reviewed: Yes Vital Signs & Weight: Vital Signs (12 hours) Temp Pulse Resp BP Pulse Ox 12/13/18 03:25 98.9 F 71 16 110/59 L 93 L 12/13/18 00:45 70 18 97 12/12/18 19:30 98.8 F 69 18 108/62 92 L 12/12/18 18:39 77 16 98 Weight Weight 83.064 kg Most Recent Monitor Data Heart Rate from ECG 69 NIBP 117/82 NIBP BP-Mean 93 Respiration from ECG 19 SpO2 95 I&O: 12/11/18 12/12/18 12/13/18 06:59 06:59 06:59 Intake Total 20 1320 Output Total 450 2225 Balance -430 -905 Result Diagrams: 12/13/18 04:48 12/15/18 04:55 Phys Exam - Physical Examination Constitutional: NAD HEENT: moist MMs Neck: supple expiratory wheezing Cardiovascular: RRR, no significant murmur Gastrointestinal: soft, non-tender, positive bowel sounds Musculoskeletal: no edema, pulses present Neurological: moves all 4 limbs Psychiatric: normal affect, A&O x 3 Skin: no rash Dx/Plan - Plan Plan: Acute Hypoxic Respiratory Failure 2/2 HFrEF exacerbation likely due to fluid restriction noncompliance - Echo 01/2018: EF 15-20%, diastolic dysfunction - BNP 1299. CXR: Cardiomegaly, pulm congestion - Trops neg x3, EKG no signs of ischemia. Flu neg - Continue IV lasix and duonebs - Strict I/O, fluid restriction, Daily weights - Cardiology (Dr Regan) consulted, apprec recs. Lifevest vs Medical management until pt has been on optimal medical therapy for at least 3 months. At that time would have repeat echo to see if he is a candidate. - Continue BB, Spironolactone, continue Entresto started yesterday. 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 4L removed - Continue home spironolactone CKD - Continue to monitor Normocytic Anemia - Continue to monitor HTN - Continue coreg Mild CAD - Continue home ASA DM II - Continue home metformin Code Status: FULL DVT ppx: Lovenox GI ppx: Pepcid Addendum - Attending - Attending Attestation Date/Time: 12/13/18 1018 I personally evaluated the patient and discussed the management with Dr. Arzola I agree with the History, Examination, Assessment and Plan documented above with any addition or exceptions noted below. HD#2 Patient remains well. Continue diuresis. Cards following. ECHO pending. Monitor closely for arrhythmias. LifeVest vs AICD prior to d/c if LVEF < 30% ABrayMD
[2018-12-13] MEDS ORDERED: Sacubitril 24.5 MG/Valsartan 25.5 MG TABLET PO SCH (09:00)
[2018-12-13] MEDS ORDERED: Lisinopril 2.5 MG TAB PO SCH (09:00)
[2018-12-13] MEDS: Carvedilol 25 MG TAB PO SCH ×2 (09:42→20:27)
[2018-12-13] MEDS: Enoxaparin Sodium 40 MG/0.4 ML SYRINGE SC SCH (09:45)
[2018-12-13] MEDS: Spironolactone 25 MG TAB PO SCH (09:45)
[2018-12-13] MEDS: metFORMIN 500 MG TAB PO SCH (09:45)
[2018-12-13] MEDS: Aspirin Chewable 81 MG TAB PO SCH (09:45)
[2018-12-13] MEDS ORDERED: Loratadine 10 MG TAB PO PRN (10:34)
[2018-12-13] MEDS ORDERED: guaiFENesin ER 600 MG TAB PO PRN (10:34)
--- NOTE | 2018-12-13 12:41 | PQF ---
DATE: 12-13-18 ATTN: DR. ROSALINDA PASCAL Please exercise your independent, professional judgment in responding to the clarification form. Clinical indicators are provided on the bottom of this form for your review Please check appropriate box(s): [x] Acute Renal Failure (ARF) / Acute Kidney Injury (ANA) [ ] Acute on Chronic Renal Failure please specify Stage of CKD (see below) [ ] CKD without ARF/ANA please specify Stage of CKD [ ] Other diagnosis [ ] Unable to determine In addition, please specify: Present on Admission (POA): [ x ] Yes [ ] No [ ] Unable to determine National Kidney Foundation Guidelines for CKD Staging Stage I Kidney damage with normal or increased GFR GFR > 90 Stage II Kidney damage with mildly decreased GFR GFR 60- 89 Stage III Kidney damage with moderately decreased GFR GFR 30-59 Stage IV Kidney damage with severely decreased GFR GFR 16-29 Stage V Kidney failure GFR<15 ESRD End Stage Renal Disease On dialysis Acute Renal Failure/Acute Kidney Failure defined as: Increases in SCr by (>) 0.3 mg/dl within 48 hours OR- Increases in SCr by (>) 1.5 times baseline, known or presumed to have occurred within the prior 7 days OR- Urine volume < 0.5 ml/kg/hour for 6 hours (KDIGO supplement 2012 for RIFLE/VITALY criteria) For continuity of documentation, please document condition throughout progress notes and discharge summary. Thank You. CLINICAL INDICATORS - SIGNS / SYMPTOMS / LABS / RESULTS AND LOCATION IN MR: CONSULT NOTE DR. GUZMÁN 12-12-18: RENAL INSUFFICIENCY, STAGE 2. ESTIMATED GFR NOW IS 69. GFR: 12-11-18: 60 12-12-18: 69 12-13-18: 71 CREATININE: 12-11-18: 1.46 12-12-18: 1.29 12-13-18: 1.26 BUN: 12-11-18: 26 12-12-18: 28 12-13-18: 31 RISK FACTORS / RESULTS AND LOCATION IN MR: H&P: 12-11-18: HOME MEDS: LASIX DAILY, COREG PO, ASA PO TREATMENTS / RESULTS AND LOCATION IN MR: CARDIOLOGY CONSULT 12-12-18 SERIES OF LABS 12-11-18 TO 12-13-18 (This form is maintained as a part of the permanent medical record) 2014 [employer]. All Rights Reserved ANTON [email or web address] Office: [phone] [facility]
--- NOTE | 2018-12-13 16:44 | PRG ---
DATE OF SERVICE: 12/13/2018 SUBJECTIVE: Mr. Shelby is doing well. He had a good response to the IV diuresis and is feeling better. OBJECTIVE: VITAL SIGNS: Blood pressure 114/69, pulse 90, it is regular. LUNGS: Clear anteriorly. Posteriorly, there are still some rales. CARDIAC: Normal S1, normal S2. ABDOMEN: Soft, nontender. EXTREMITIES: There is no significant edema. DIAGNOSTIC DATA: Echocardiogram, ejection fraction of 20% to 25%. There is some thickening at the left ventricular apex, it is probably muscular trabecula, but cannot completely exclude the possibility of thrombus. ASSESSMENT: 1. Nonischemic cardiomyopathy, ejection fraction of 20% to 25%, responding to medications. 2. Finding on the echo as outlined above, probably muscle in the apex, but cannot exclude the possibility of thrombus. PLAN: 1. Continue current medical regimen including Entresto. 2. Reduce the furosemide dose tomorrow. 3. Tentatively plan for a transesophageal echo on Sunday. We will ask Dr. Espinoza to do that. Job ID: [id number]
[2018-12-14 03:54] LABS: Anion Gap 14 mmol/L (10-20); BUN (Urea Nitrogen) 28 mg/dL (8.4-25.7); Calc. Creatinine Clearance 90 mL/min (70-130); Carbon Dioxide 29 mmol/L (22-29); Chloride 97 mmol/L (98-107); Estimated GFR-MDRD 88; Glucose 114 mg/dL (70-105); Potassium 4.3 mmol/L (3.5-5.1); Sodium 136 mmol/L (136-145)
[2018-12-14] MEDS: Furosemide 20 MG/2 ML VIAL SLOW IVP SCH ×2 (05:10→17:14)
--- NOTE | 2018-12-14 05:44 | PDOC.FM ---
- Subjective Subjective: No overnight events. Feeling well. Breathing treatments are helpful. Reports SOB continues to improve. Still requiring O2. Voiding and stooling. - Objective MAR Reviewed: Yes Vital Signs & Weight: Vital Signs (12 hours) Temp Pulse Resp BP Pulse Ox 12/14/18 04:00 97.7 F 73 20 128/77 96 12/14/18 01:21 93 L 12/14/18 00:54 78 24 H 97 12/13/18 20:00 98.4 F 73 16 110/63 96 12/13/18 19:06 70 22 H 97 Weight Weight 83.064 kg Most Recent Monitor Data Heart Rate from ECG 69 NIBP 117/82 NIBP BP-Mean 93 Respiration from ECG 19 SpO2 95 I&O: 12/12/18 12/13/18 12/14/18 06:59 06:59 06:59 Intake Total 20 1320 Output Total 450 2225 Balance -430 -905 Result Diagrams: 12/13/18 04:48 12/14/18 02:23 Phys Exam - Physical Examination Constitutional: NAD HEENT: moist MMs Neck: supple Respiratory: wheezing present inspiratory and expiratory wheezing. Crackles present Cardiovascular: RRR Gastrointestinal: soft, non-tender, positive bowel sounds Musculoskeletal: pulses present Neurological: moves all 4 limbs Psychiatric: normal affect, A&O x 3 Skin: no rash Dx/Plan - Plan Plan: Acute Hypoxic Respiratory Failure 2/2 HFrEF exacerbation likely due to fluid restriction noncompliance - Echo 01/2018: EF 15-20%, diastolic dysfunction - BNP 1299. CXR: Cardiomegaly, pulm congestion - Trops neg x3, EKG no signs of ischemia. Flu neg - Continue IV lasix and duonebs - Strict I/O, fluid restriction, Daily weights - Cardiology (Dr Regan) consulted, apprec recs. Lifevest vs Medical management until pt has been on optimal medical therapy for at least 3 months. At that time would have repeat echo to see if he is a candidate. 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
[2018-12-14] MEDS ORDERED: Furosemide 20 MG/2 ML VIAL SLOW IVP SCH (07:15)
[2018-12-14] MEDS: Spironolactone 25 MG TAB PO SCH (08:52)
[2018-12-14] MEDS: Carvedilol 25 MG TAB PO SCH ×2 (08:52→20:31)
[2018-12-14] MEDS: metFORMIN 500 MG TAB PO SCH (08:52)
[2018-12-14] MEDS: Aspirin Chewable 81 MG TAB PO SCH (08:52)
[2018-12-14] MEDS: Enoxaparin Sodium 40 MG/0.4 ML SYRINGE SC SCH (08:52)
--- NOTE | 2018-12-14 14:32 | PDOC.CPN ---
- Subjective Date: 12/14/18 Time: 14:36 Interval history: The pt seen and examined. No overnight events. No cardiac complaints. - Objective Allergies/Adverse Reactions: Allergies Allergy/AdvReac Type Severity Reaction Status Date / Time Penicillins Allergy Verified 12/12/18 01:28 Visit Medications: Current Medications Acetaminophen (Tylenol) 650 mg PO Q4H PRN PRN Reason: Headache/Fever/Mild Pain (1-3) Albuterol/Ipratropium (Duoneb) 3 ml NEB [id number] PRN PRN Reason: SOB &/or Wheezing Albuterol/Ipratropium (Duoneb) 3 ml NEB [id number] [facility] Last Admin: 12/14/18 13:29 Dose: 3 ml Aspirin (Aspirin Chewable) 81 mg PO DAILY [facility] Last Admin: 12/14/18 08:52 Dose: 81 mg Carvedilol (Coreg) 12.5 mg PO BID [facility] Last Admin: 12/14/18 08:52 Dose: 12.5 mg Enoxaparin Sodium (Lovenox) 40 mg SC 0900 [facility] Last Admin: 12/14/18 08:52 Dose: 40 mg Furosemide (Lasix) 20 mg SLOW IVP 0600,1400 [facility] Last Admin: 12/14/18 05:10 Dose: 20 mg Guaifenesin (Mucinex) 600 mg PO Q12H PRN PRN Reason: Congestion Last Admin: 12/13/18 12:59 Dose: 600 mg Loratadine (Claritin) 10 mg PO DAILYPRN PRN PRN Reason: Allergies Metformin HCl (Glucophage) 500 mg PO [facility] Last Admin: 12/14/18 08:52 Dose: 500 mg Sacubitril/Valsartan (Entresto 24 Mg-26 Mg Tablet) 1 tab PO BID [facility] Last Admin: 12/14/18 08:52 Dose: 1 tab Sodium Chloride (Flush - Normal Saline) 10 ml IVF PRN PRN PRN Reason: Saline Flush Spironolactone (Aldactone) 25 mg PO QA-[facility] Last Admin: 12/14/18 08:52 Dose: 25 mg Vital Signs & Weight: Vital Signs Temp Pulse Resp BP Pulse Ox 12/14/18 13:29 76 18 96 12/14/18 12:00 98.3 F 72 20 97/53 L 98 12/14/18 08:00 99.3 F 95 18 106/64 95 12/14/18 06:55 72 20 94 L 12/14/18 04:00 97.7 F 73 20 128/77 96 Weight 181 lb - Physical Exam General: alert & oriented x3 HEENT: mucus membranes moist Neck: supple neck Cardiac: regular rate and rhythm, S1/S2 Lungs: decreased breath sounds Abdomen: firm, distended, ascites Extremities: no cyanosis Musculoskeletal: decreased range of motion - Labs Result Diagrams: 12/13/18 04:48 12/14/18 02:23 Troponin/CKMB Troponin I Less than 0.010 ng/mL (< 0.028) 12/12/18 01:10 - Telemetry Sinus rhythms and dysrhythmias: sinus rhythm - Assessment/Plan Assessment/Plan: 1. Acute on Chronic Systolic HF with EF 20-25% - on Coreg 12.5mg BID and Lasix 20mg BID; Will start PHILLY/ARB with stable VS 2. Non-ischemic CMY - may need LifeVest at discharge 3. Cirrhosis 2/2/ hep B - 4. HTN - stable 5. CKD - stable 6. DM type 2 - MAR reviewed * Plan for KRAIG on Sunday by Dr Espinoza * Dr Regan's pt. Pt. seen and eval. by me. I agree with the A/P by the [employer]MULATOR. RRR,chest clear. No significant edema. gjm
--- NOTE | 2018-12-14 17:42 | PRG ---
DATE OF SERVICE: 12/14/2018 Please see the note from Dr. Arzola, for which I agree. The patient was seen, evaluated and discussed with the residents, and examined by bedside. He is a gentleman, who came in with a CHF exacerbation and initially had to be on BiPAP, now still on 2 L, and we are basically just diuresing and getting the fluid off him. He is slowly improving. He is still needing fairly high dose of Lasix and otherwise sounds like he is improving. He has an extremely low ejection fraction of 20% to 25%, so a LifeVest is a possibility here and I am trying to work that up to make that happen at this time. Otherwise, just supportive care and diuresis, following kidney function. Job ID: [id number]
[2018-12-15 05:56] LABS: Anion Gap 11 mmol/L (10-20); BUN (Urea Nitrogen) 26 mg/dL (8.4-25.7); Calc. Creatinine Clearance 92 mL/min (70-130); Calcium 8.1 mg/dL (7.8-10.44); Carbon Dioxide 31 mmol/L (22-29); Chloride 97 mmol/L (98-107); Estimated GFR-MDRD Greater than 90; Glucose 136 mg/dL (70-105); Potassium 4.5 mmol/L (3.5-5.1); Sodium 134 mmol/L (136-145)
--- NOTE | 2018-12-15 06:11 | PDOC.FM ---
- Subjective Subjective: No overnight events. Feeling well, ordering breakfast. SOB continues to improve with diuresis. Voiding and stooling. - Objective MAR Reviewed: Yes Vital Signs & Weight: Vital Signs (12 hours) Temp Pulse Resp BP Pulse Ox 12/15/18 04:00 98.2 F 73 16 137/76 96 12/15/18 02:53 97 12/15/18 01:04 78 16 96 12/14/18 23:31 123/77 12/14/18 20:29 94 L 12/14/18 19:26 70 16 95 Weight Weight 82.1 kg Most Recent Monitor Data Heart Rate from ECG 69 NIBP 117/82 NIBP BP-Mean 93 Respiration from ECG 19 SpO2 95 I&O: 12/13/18 12/14/18 12/15/18 06:59 06:59 06:59 Intake Total 1320 Output Total 2225 Balance -905 Result Diagrams: 12/13/18 04:48 12/15/18 04:55 Phys Exam - Physical Examination Constitutional: NAD HEENT: moist MMs Neck: supple Respiratory: clear to auscultation bilateral Cardiovascular: RRR, no significant murmur Gastrointestinal: soft, non-tender Musculoskeletal: no edema Neurological: moves all 4 limbs Psychiatric: normal affect, A&O x 3 Skin: no rash Dx/Plan - Plan Plan: Acute Hypoxic Respiratory Failure 2/2 HFrEF exacerbation likely due to fluid restriction noncompliance - Echo 12/13: EF 20-25% - Continue IV lasix and duonebs - Strict I/O, fluid restriction, Daily weights - Cardiology (Dr Regan) consulted, apprec recs. Lifevest prior to discharge. 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
[2018-12-15] MEDS: Furosemide 20 MG/2 ML VIAL SLOW IVP SCH ×2 (06:19→16:10)
[2018-12-15] MEDS: Aspirin Chewable 81 MG TAB PO SCH (09:28)
[2018-12-15] MEDS: Spironolactone 25 MG TAB PO SCH (09:29)
[2018-12-15] MEDS: metFORMIN 500 MG TAB PO SCH (09:29)
[2018-12-15] MEDS: Carvedilol 25 MG TAB PO SCH ×2 (09:29→22:22)
[2018-12-15] MEDS: Enoxaparin Sodium 40 MG/0.4 ML SYRINGE SC SCH (09:29)
--- NOTE | 2018-12-15 14:28 | PDOC.CPN ---
- Subjective Date: 12/15/18 Time: 14:27 Interval history: The pt seen and examined. No overnight events. No cardiac complaints. - Objective Allergies/Adverse Reactions: Allergies Allergy/AdvReac Type Severity Reaction Status Date / Time Penicillins Allergy Verified 12/12/18 01:28 Visit Medications: Current Medications Acetaminophen (Tylenol) 650 mg PO Q4H PRN PRN Reason: Headache/Fever/Mild Pain (1-3) Albuterol/Ipratropium (Duoneb) 3 ml NEB [id number] PRN PRN Reason: SOB &/or Wheezing Albuterol/Ipratropium (Duoneb) 3 ml NEB [id number] [facility] Last Admin: 12/15/18 13:58 Dose: 3 ml Aspirin (Aspirin Chewable) 81 mg PO DAILY [facility] Last Admin: 12/15/18 09:28 Dose: 81 mg Carvedilol (Coreg) 12.5 mg PO BID [facility] Last Admin: 12/15/18 09:29 Dose: 12.5 mg Enoxaparin Sodium (Lovenox) 40 mg SC 0900 [facility] Last Admin: 12/15/18 09:29 Dose: 40 mg Furosemide (Lasix) 20 mg SLOW IVP 0600,1400 [facility] Last Admin: 12/15/18 06:19 Dose: 20 mg Guaifenesin (Mucinex) 600 mg PO Q12H PRN PRN Reason: Congestion Last Admin: 12/13/18 12:59 Dose: 600 mg Loratadine (Claritin) 10 mg PO DAILYPRN PRN PRN Reason: Allergies Metformin HCl (Glucophage) 500 mg PO [facility] Last Admin: 12/15/18 09:29 Dose: 500 mg Sacubitril/Valsartan (Entresto 24 Mg-26 Mg Tablet) 1 tab PO BID [facility] Last Admin: 12/15/18 09:28 Dose: 1 tab Sodium Chloride (Flush - Normal Saline) 10 ml IVF PRN PRN PRN Reason: Saline Flush Spironolactone (Aldactone) 25 mg PO QA-[facility] Last Admin: 12/15/18 09:29 Dose: 25 mg Vital Signs & Weight: Vital Signs Temp Pulse Resp BP Pulse Ox 12/15/18 13:58 71 16 97 12/15/18 11:46 98.1 F 76 17 106/56 L 94 L 12/15/18 07:52 98.1 F 70 18 121/68 97 12/15/18 07:35 96 12/15/18 07:33 78 16 96 12/15/18 04:00 98.2 F 73 16 137/76 96 12/15/18 02:53 97 Weight 181 lb - Physical Exam General: alert & oriented x3 HEENT: mucus membranes moist Neck: supple neck Cardiac: regular rate and rhythm, S1/S2 Lungs: decreased breath sounds Abdomen: firm, distended Extremities: no cyanosis Musculoskeletal: normal range of motion - Labs Result Diagrams: 12/13/18 04:48 12/15/18 04:55 Troponin/CKMB Troponin I Less than 0.010 ng/mL (< 0.028) 12/12/18 01:10 - Telemetry Sinus rhythms and dysrhythmias: sinus rhythm - Assessment/Plan Assessment/Plan: 1. Acute on Chronic Systolic HF with EF 20-25% - on Coreg 12.5mg BID and Lasix 20mg BID; Will start PHILLY/ARB with stable VS 2. Non-ischemic CMY - may need LifeVest at discharge 3. Cirrhosis 2/2/ hep B - 4. HTN - stable 5. CKD - stable 6. DM type 2 - MAR reviewed * Plan for KRAIG on Sunday by Dr Espinoza * Dr Regan's pt. P
[2018-12-15] MEDS ORDERED: Dextrose 50% Abboject 50 ML SYRINGE SLOW IVP PRN (20:35)
[2018-12-15] MEDS ORDERED: Dextrose 5% in Water 1,000 ML IV PRN (20:35)
--- NOTE | 2018-12-16 06:26 | PDOC.FM ---
- Subjective Subjective: No overnight events. Doing well this morning. NPO for KRAIG. Reports SOB is improving. Continues to diurese - Objective MAR Reviewed: Yes Vital Signs & Weight: Vital Signs (12 hours) Temp Pulse Resp BP Pulse Ox 12/16/18 04:00 98.1 F 74 18 120/71 95 12/16/18 01:54 75 18 97 12/15/18 22:08 98.3 F 74 20 107/57 L 94 L 12/15/18 19:14 81 18 95 Weight Weight 82.1 kg Most Recent Monitor Data Heart Rate from ECG 69 NIBP 117/82 NIBP BP-Mean 93 Respiration from ECG 19 SpO2 95 I&O: 12/14/18 12/15/18 12/16/18 06:59 06:59 06:59 Output Total 600 Balance -600 Result Diagrams: 12/13/18 04:48 12/15/18 04:55 Phys Exam - Physical Examination Constitutional: NAD HEENT: moist MMs Neck: supple Respiratory: no wheezing, clear to auscultation bilateral Cardiovascular: RRR Gastrointestinal: soft, non-tender, positive bowel sounds Musculoskeletal: no edema Neurological: moves all 4 limbs Psychiatric: normal affect, A&O x 3 Skin: no rash Dx/Plan - Plan Plan: Acute Hypoxic Respiratory Failure 2/2 HFrEF exacerbation likely due to fluid restriction noncompliance - Echo 12/13: EF 20-25% - Continue IV lasix and duonebs. Lungs clear this morning, continues to need O2 will attempt to wean today- if not able to will have CM start working on home O2. - Strict I/O, fluid restriction, Daily weights - Cardiology (Dr Regan) consulted, apprec recs. Lifevest prior to discharge. 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 Arzola. I agree with the History, Examination, Assessment and Plan documented above with any addition or exceptions noted below. Will try to wean o2. Continue diuresis. KRAIG today, results pending.
[2018-12-16] MEDS: Furosemide 20 MG/2 ML VIAL SLOW IVP SCH ×2 (06:29→15:14)
[2018-12-16] MEDS ORDERED: PROPOFOL 20 ML ONE (08:31)
[2018-12-16] MEDS: Carvedilol 25 MG TAB PO SCH ×2 (09:54→21:44)
[2018-12-16] MEDS: metFORMIN 500 MG TAB PO SCH (09:54)
[2018-12-16] MEDS: Aspirin Chewable 81 MG TAB PO SCH (09:54)
[2018-12-16] MEDS: Spironolactone 25 MG TAB PO SCH (09:55)
[2018-12-16] MEDS: Enoxaparin Sodium 40 MG/0.4 ML SYRINGE SC SCH (09:55)
--- NOTE | 2018-12-16 12:38 | OP ---
DATE OF PROCEDURE: 12/16/2018 PROCEDURE PERFORMED: Transesophageal echocardiogram. INDICATION: A 58-year-old gentleman with cardiomyopathy. DESCRIPTION OF PROCEDURE: The patient was taken to the PACU. The patient was sedated by Anesthesiology. A transesophageal probe was placed into the distal esophagus and stomach. Echocardiographic images were obtained. The transesophageal probe was removed. FINDINGS: 1. Severe decrease in left ventricular systolic function. 2. Global hypokinesis. 3. Biatrial enlargement. 4. Mild mitral regurgitation. 5. Mild tricuspid regurgitation. 6. Spontaneous contrast was noted in the left atrium and left atrial appendage. 7. No formed thrombus in left atrium and left atrial appendage. 8. No thrombus was noted in the left ventricular apex. 9. Atherosclerotic debris in the descending aorta. IMPRESSION: No formed thrombus in the left atrium, left atrial appendage, or left ventricular apex. Job ID: [id number]
--- NOTE | 2018-12-16 12:47 | PRG ---
DATE OF SERVICE: 12/15/2018 Please see the note done by Dr. Arzola for which I agree. The patient overnight has done well. No major issues of increasing shortness of breath or edema or orthopnea. Having pretty good diuresis. He does have a known low EF of 20% to 25%. It sounds like we are getting him set up for a LifeVest before he leaves and then I think the title coordinator's plan is to do a transesophageal echocardiogram tomorrow to further evaluate his heart and looking for the possibility of clots in his LV, it sounds like. Of note, the patient has chronic liver issues, intermittently gets paracentesis. A little bit of distention of the abdomen, but no major ascites today. Job ID: [id number]
[2018-12-16] MEDS ORDERED: PROPOFOL 200 MG/20 ML VIAL ONE (16:21)
[2018-12-17] MEDS: Furosemide 20 MG/2 ML VIAL SLOW IVP SCH (05:20)
--- NOTE | 2018-12-17 06:23 | PDOC.FM ---
- Subjective Subjective: 7 beats of Vtach overnight, pt was asymptomatic. Has been off oxygen since yesterday. Reports almost resolution of shortness of breath. Denies chest pain. - Objective MAR Reviewed: Yes Vital Signs & Weight: Vital Signs (12 hours) Temp Pulse Resp BP Pulse Ox 12/17/18 04:00 98.6 F 75 16 108/63 92 L 12/17/18 00:39 74 16 96 12/16/18 23:52 74 108/59 L 12/16/18 21:08 98 12/16/18 20:30 76 16 95 Weight Weight 84.822 kg Most Recent Monitor Data Heart Rate from ECG 69 NIBP 117/82 NIBP BP-Mean 93 Respiration from ECG 19 SpO2 95 I&O: 12/15/18 12/16/18 12/17/18 06:59 06:59 06:59 Intake Total 240 845 Output Total 1000 900 Balance -760 -55 Result Diagrams: 12/13/18 04:48 12/17/18 05:32 Phys Exam - Physical Examination Constitutional: NAD HEENT: moist MMs Neck: supple Respiratory: no wheezing, clear to auscultation bilateral Cardiovascular: RRR, no significant murmur Gastrointestinal: soft, non-tender Musculoskeletal: no edema Neurological: moves all 4 limbs Psychiatric: normal affect, A&O x 3 Skin: no rash Dx/Plan - Plan Plan: Acute Hypoxic Respiratory Failure 2/2 HFrEF exacerbation likely due to fluid restriction noncompliance - Echo 12/13: EF 20-25% - Strict I/O, fluid restriction, Daily weights - Cardiology (Dr Regan) consulted, apprec recs. Lifevest prior to discharge. - Continue BB, Spironolactone, Entresto - Will switch from IV to pts home lasix Cirrhosis 2/2 Heb B - Continue home spironolactone CKD - Continue to monitor Normocytic Anemia - Continue to monitor HTN - Continue coreg Mild CAD - Continue home ASA DM II - Continue home metformin Code Status: FULL DVT ppx: Lovenox GI ppx: Pepcid Addendum - Attending - Attending Attestation Date/Time: 12/17/18 4629 I personally evaluated the patient and discussed the management with Dr. Arzola. I agree with the History, Examination, Assessment and Plan documented above with any addition or exceptions noted below. Patient is feeling well. He had 7 beats of vtach overnight. Cardiology is arranging a life vest with plans to d/c this afternoon.
[2018-12-17 06:26] LABS: Anion Gap 12 mmol/L (10-20); BUN (Urea Nitrogen) 28 mg/dL (8.4-25.7); Calc. Creatinine Clearance 104 mL/min (70-130); Calcium 8.4 mg/dL (7.8-10.44); Carbon Dioxide 32 mmol/L (22-29); Chloride 97 mmol/L (98-107); Estimated GFR-MDRD Greater than 90; Glucose 121 mg/dL (70-105); Potassium 4.7 mmol/L (3.5-5.1); Sodium 136 mmol/L (136-145)
[2018-12-17] MEDS: metFORMIN 500 MG TAB PO SCH (07:37)
[2018-12-17] MEDS: Carvedilol 25 MG TAB PO SCH (07:37)
[2018-12-17] MEDS: Spironolactone 25 MG TAB PO SCH (07:37)
[2018-12-17] MEDS: Enoxaparin Sodium 40 MG/0.4 ML SYRINGE SC SCH (07:38)
[2018-12-17] MEDS: Aspirin Chewable 81 MG TAB PO SCH (07:38)
[2018-12-17] MEDS ORDERED: Furosemide 40 MG TAB PO SCH (09:00)
[2018-12-17] MEDS ORDERED: Furosemide 20 MG TAB PO SCH (09:00)
[2018-12-17] MEDS ORDERED: Sacubitril 49 MG/Valsartan 51 MG TABLET PO SCH ×3 (09:34→21:00)
--- NOTE | 2018-12-17 09:57 | PRG ---
DATE OF SERVICE: 12/17/2018 SUBJECTIVE: Mr. Shelby is doing well. No chest pain or shortness of breath. He feels well. Transesophageal echo yesterday revealed no thrombus in the left ventricular apex. OBJECTIVE: VITAL SIGNS: Blood pressure 116/70, pulse 70. LUNGS: Clear. CARDIAC: Normal S1, normal S2. ABDOMEN: Soft, nontender. EXTREMITIES: No edema. ASSESSMENT: 1. Nonischemic cardiomyopathy with severely depressed left ventricular function. Ejection fraction below 20%. 2. Also had nonsustained ventricular tachycardia, 7 beats, rate of 150 yesterday. PLAN: 1. Increase Entresto to 49/51 twice a day. 2. Continue carvedilol 12.5 mg twice a day. 3. Aspirin 81 mg a day. 4. Furosemide 40 mg a day. 5. Spironolactone 25 mg a day. 6. Try to arrange for LifeVest. He is good candidate for defibrillator implantation ultimately, but needs to be on angiotensin receptor blockers and beta blockers for the 3 months. 7. Okay with us to go home after that, see us in the office in 1 to 2 weeks. Job ID: [id number]
[2018-12-17 13:22] VITALS: BP 112/69; TEMP 98
[2018-12-17] MEDS ORDERED: Hydrocortisone 1% Cream 1.5 GM Packet TOP SCH (21:00)
--- NOTE | 2018-12-17 22:53 | DIS ---
DATE OF ADMISSION: 12/11/2018 DATE OF DISCHARGE: 12/17/2018 RESIDENT: Nereida Arzola MD, PGY-2. ADMITTING ATTENDING: Niyah Birch MD DISCHARGE ATTENDING: Stephanie Garay MD CONSULTS: Cardiology, Meena Regan MD PROCEDURES PERFORMED: 1. Chest x-ray 12/11/2018, cardiomegaly. No acute process. 2. Echocardiogram 12/13/2018, EF 20% to 25%. LV apex with moderate prominent trabeculae, cannot exclude possibility of LV thrombus. Left ventricular size is moderately increased. 3. KRAIG on 12/16/2018, severe decrease in left ventricular systolic function. Global hypokinesis. Biatrial enlargement. Mild mitral regurgitation. Mild tricuspid regurgitation. Spontaneous contrast was noted in the left atrium and left atrial appendage. No formed thrombus in left atrium and left atrial appendage. No thrombus is noted in the left ventricular apex. Atherosclerotic debris in the descending aorta. PRIMARY DIAGNOSES: Acute hypoxic respiratory failure secondary to heart failure with reduced ejection fraction, exacerbation likely due to fluid restriction noncompliance. SECONDARY DIAGNOSES: 1. 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 2. Chronic kidney disease. 3. Normocytic anemia. 4. Hypertension. 5. Mild coronary artery disease. 6. Type 2 diabetes. DISCHARGE MEDICATIONS: 1. Aspirin 81 mg daily. 2. Coreg 12.5 mg b.i.d. 3. Lasix 40 mg daily. 4. DuoNeb 3 mL q.6 hours p.r.n. 5. Claritin 10 mg daily. 6. Metformin 500 mg daily. 7. Entresto one tab b.i.d. 8. Spironolactone 25 mg daily. HISTORY OF PRESENT ILLNESS/HOSPITAL COURSE: Mr. Shelby is a 58-year-old male who presented to the ED with shortness of breath, found to be in CHF exacerbation. He reported he was drinking too much orange juice due to some discomfort after his paracentesis. He is noted to be hypoxic at 85% on room air and was started on BiPAP with quick resolution of hypoxia. AICD placement has been discussed with the patient multiple times and he has declined. However, his friend recently got an AICD and he was not interested in placement. He was treated with IV diuresis with unable to wean off oxygen prior to discharge. Cardiology was consulted for further discussion of AICD with the patient, however, he has not been on optimal medical management for the last three months because he stopped taking lisinopril, so he was started on Entresto, and metoprolol was temporarily reduced to 12.5 mg b.i.d. with plan of increasing it once his body adjust. He was discharged with a LifeVest. In regard to his hypertension, coronary artery disease, type 2 diabetes, these were stable throughout course in hospitalization with home medications. In regard to his cirrhosis, he had received paracentesis 5 days prior to admission. His doctors are located at [facility]. He could receive his paracentesis in the procedure clinic here. This was discussed with the patient and referral was placed. He is continued on his home spironolactone. Initial BNP at admission was 1299.9. Troponin negative x3. CK 204, creatinine 1.46. Creatinine at discharge 0.93. The patient was noted to be anemic at 12.3 prior to discharge. He worked up outpatient. The patient also experienced two episodes of asymptomatic ventricular tachycardia on tele. He was discharged with a LifeVest. DISPOSITION: Stable. DISCHARGE INSTRUCTIONS: 1. Location: Home. 2. Diet: Heart healthy. Fluid restriction 1500 mL. 3. Activity: No restrictions. 4. Followup: Follow up with [facility] within 7 days and cardiac rehab, as well as heart failure clinic. Follow up with Dr. Regan within 14 days. Job ID: [id number] [facility]
== END 2018-12-17 16:15 | disposition home health service (06) | DRG 291 ==
LOC: ERS 18:46 → ERHOLD 20:28 → CCU 12-12 00:54 → T4-B 12-12 09:44 → 2NO 12-12 14:21
PROVIDERS: ADMIT Family Medicine; ATTEND Family Medicine
PROC: 5A09357 Assistance with Respiratory Ventilation, Less than 24 Consecutive Hours, Continuous Positive Airway Pressure (ICD-10-PCS; principal; 2018-12-11)
PROC: B24BZZ4 Ultrasonography of Heart with Aorta, Transesophageal (ICD-10-PCS; 2018-12-16)
DX: I13.0 Hypertensive heart and chronic kidney disease with heart failure and stage 1 through stage 4 chronic kidney disease, or unspecified chronic kidney disease (principal); I50.23 Acute on chronic systolic (congestive) heart failure; J96.01 Acute respiratory failure with hypoxia; N17.9 Acute kidney failure, unspecified; I47.1 Supraventricular tachycardia; B18.1 Chronic viral hepatitis B without delta-agent; I42.8 Other cardiomyopathies; D63.1 Anemia in chronic kidney disease; I25.10 Atherosclerotic heart disease of native coronary artery without angina pectoris; E11.22 Type 2 diabetes mellitus with diabetic chronic kidney disease; K74.60 Unspecified cirrhosis of liver; N18.2 Chronic kidney disease, stage 2 (mild); I08.1 Rheumatic disorders of both mitral and tricuspid valves; Z28.21 Immunization not carried out because of patient refusal; Z91.19 Patient's noncompliance with other medical treatment and regimen; Z88.0 Allergy status to penicillin; Z87.891 Personal history of nicotine dependence; Z79.899 Other long term (current) drug therapy; Z79.84 Long term (current) use of oral hypoglycemic drugs; Z79.82 Long term (current) use of aspirin
CPT/HCPCS: 36415; 36416; 49082; 71045; 80048; 80053; 80306; 81001; 82550; 83690; 83735; 83880; 84484; 85025; 85060; 87070; 87205; 87804; 89051; 93005; 93306; 93312; 93798; 94640; 94660; 96374; 99281; J1650; J1940; J2704; J7620

== ENCOUNTER 2019-02-01 18:27 | Inpatient (IN) | payer MEDICARE, MEDICAID ==
[2019-02-01 20:03] LABS: #Basophils 0.1 thou/uL (0.0-0.2); #Eosinphils 0.1 thou/uL (0.0-0.7); #Lymphocytes 1.1 thou/uL (1.20-3.40); #Monocytes 0.5 thou/uL (0.11-0.59); #Neutrophils 2.4 thou/uL (1.40-6.50); %Basophils 1.5 % (0.0-1.0); %Eosinophils 1.9 % (0.0-10.0); %Lymphocytes 26.6 % (21.0-51.0); %Monocytes 11.4 % (0.0-10.0); %Neutrophils 58.6 % (42.0-75.0); Mean Corpuscular HGB CONC 31.8 g/dL (32.0-36.0); Mean Corpuscular Hemoglobin 29.3 pg (27.0-31.0); Mean Corpuscular Volume 92.1 fL (78.0-98.0); Mean Platelet Volume 8.7 fL (7.4-10.4); Platelet Count 137 thou/uL (130-400); RBC Distribution Width 15.3 % (11.5-14.5)
--- NOTE | 2019-02-01 20:06 | RAD ---
Chest AP view INDICATION: Shortness of breath COMPARISON: December 11, 2018 FINDINGS: Lungs:The lungs are clear Cardiac silhouette:Stable cardia megaly Pulmonary vasculature:Normal Pleural spaces:No pleural effusion or pneumothorax is demonstrated. Upper abdomen:No abnormality seen. Osseous structures: No acute osseous abnormality. Additional findings:None. IMPRESSION: Stable cardiomegaly
[2019-02-01 20:09] LABS: INR-International Normal Ratio 1.3; PTT 38.3 SEC (22.9-36.1); Prothrombin Time 16.3 SEC (12.0-14.7)
[2019-02-01 20:18] LABS: Lactic Acid 0.8 mmol/L (0.5-2.2)
[2019-02-01 20:22] LABS: ALT (SGPT) 9 U/L (8-55); AST (SGOT) 21 U/L (5-34); Albumin 3.4 g/dL (3.5-5.0); Alkaline Phosphatase 114 U/L (40-110); Anion Gap 9 mmol/L (10-20); BUN (Urea Nitrogen) 24 mg/dL (8.4-25.7); Bilirubin, Total 0.9 mg/dL (0.2-1.2); Calc. Creatinine Clearance 0 mL/min (70-130); Calcium 8.6 mg/dL (7.8-10.44); Carbon Dioxide 28 mmol/L (22-29); Chloride 106 mmol/L (98-107); Estimated GFR-MDRD 83; Globulin 4.8 g/dL (2.4-3.5); Glucose 75 mg/dL (70-105); Protein, Total 8.2 g/dL (6.0-8.3); Sodium 139 mmol/L (136-145)
[2019-02-01] MEDS ORDERED: Furosemide 40 MG/4 ML VIAL ONE (21:04)
[2019-02-01 21:55] LABS: Bacteria/HPF None Seen HPF (None Seen); Bilirubin Negative (Negative); Blood, Urine 2+ (Negative); Clarity Clear (Clear); Glucose, Urine (Dipstick) Normal (Negative); Leukocyte Negative Leu/uL (Negative); Mucous/LPF Rare LPF (<2+); Nitrite Negative (Negative); Protein, Urine (Dipstick) 100 mg/dL (Neg-Trace); RBC/HPF 0-3 HPF (0-3); Squamous Epithelial 0-3 HPF (0-3); Urobilinogen Normal mg/dL (Less than 2); WBC/HPF 0-3 HPF (0-3)
--- NOTE | 2019-02-01 23:21 | PDOC.EVN ---
Event Note - Event Note Event Note: [id number]
[2019-02-01 23:41] LABS: Troponin I Less than 0.010 ng/mL (< 0.028)
--- NOTE | 2019-02-02 00:29 | HP ---
CHIEF COMPLAINT: Shortness of breath. HISTORY OF PRESENT ILLNESS: Mr. Shelby is a 58-year-old male with past medical history of liver cirrhosis, congestive heart failure, diabetes, hypertension, presents to the emergency room with worsening shortness of breath and leg swelling. Also, the patient noticed abdominal distention. He usually gets paracentesis once a month. The patient is on diuretics at home. Workup in the emergency room, the patient was in moderate respiratory distress with elevated BNP more than 2000. Chest x-ray shows cardiomegaly. The patient has been admitted to the hospital for further management. PAST MEDICAL HISTORY: 1. Congestive heart failure. 2. Liver cirrhosis/ascites. 3. Diabetes type 2. 4. Hypertension. PAST SURGICAL HISTORY: 1. Hernia repair. 2. Paracentesis. SOCIAL HISTORY: Denies drug use. Denies smoking. Denies alcohol drinking. FAMILY HISTORY: Reviewed and noncontributory. HOME MEDICATIONS: Please see home medication reconciliation form for updated medications. ALLERGIES: ALLERGIC TO PENICILLIN. REVIEW OF SYSTEMS: Review of 14 systems negative except what is mentioned in history of present illness. PHYSICAL EXAMINATION: GENERAL: The patient is awake, alert, in moderate respiratory distress. VITAL SIGNS: Blood pressure 155/90, pulse is 80, respiratory rate is 20, pulse oximetry 99% on room air. HEENT: Head and neck, normocephalic and atraumatic. NECK: Supple. No JVD. CHEST: Fair bilateral air entry. HEART: S1, S2. Regular. ABDOMEN: Distended with positive shifting dullness and fluid thrill. NEUROLOGIC: Awake, alert, and oriented x3. PSYCHIATRIC: Normal mood. EXTREMITIES: Positive for edema. No clubbing or cyanosis. LABORATORY DATA: BNP is more than 2000. Sodium 139, BUN is 24, creatinine 1.1. INR is 1.3. Chest x-ray, as mentioned above in history of present illness. ASSESSMENT: 1. Acute on chronic congestive heart failure. 2. Fluid overload. 3. Ascites. 4. Liver cirrhosis. 5. Diabetes mellitus type 2. 6. Hypertension. PLAN: 1. Admit. 2. IV diuresis. 3. Reassess in a.m., patient probably needs paracentesis. 4. Reconcile home medications. 5. DVT prophylaxis as appropriate. 6. Expected length of stay at least 1 midnight if patient stable. Job ID: [id number]
[2019-02-02 00:42] VITALS: BMI 33.7
[2019-02-02] MEDS ORDERED: Ondansetron PF 4 MG/2 ML Vial IVP PRN (00:51)
[2019-02-02] MEDS ORDERED: Ondansetron ODT 4 MG TAB SL PRN (00:51)
[2019-02-02 02:48] LABS: Troponin I Less than 0.010 ng/mL (< 0.028)
[2019-02-02 05:07] LABS: #Eosinphils 0.1 thou/uL (0.0-0.7); #Lymphocytes 1.2 thou/uL (1.20-3.40); #Monocytes 0.5 thou/uL (0.11-0.59); #Neutrophils 2.3 thou/uL (1.40-6.50); %Monocytes 10.9 % (0.0-10.0); Mean Corpuscular Hemoglobin 29.6 pg (27.0-31.0); Mean Corpuscular Volume 92.3 fL (78.0-98.0); Mean Platelet Volume 8.6 fL (7.4-10.4); Platelet Count 132 thou/uL (130-400); RBC Distribution Width 15.1 % (11.5-14.5); Red Blood Cell (RBC) Count 3.71 mill/uL (4.70-6.10); White Blood Cell (WBC) Count 4.1 thou/uL (4.8-10.8)
[2019-02-02 05:29] LABS: ALT (SGPT) 9 U/L (8-55); AST (SGOT) 19 U/L (5-34); Alkaline Phosphatase 100 U/L (40-110); Anion Gap 11 mmol/L (10-20); BUN (Urea Nitrogen) 25 mg/dL (8.4-25.7); Bilirubin, Total 0.7 mg/dL (0.2-1.2); Calc. Creatinine Clearance 100 mL/min (70-130); Calcium 8.2 mg/dL (7.8-10.44); Carbon Dioxide 27 mmol/L (22-29); Chloride 107 mmol/L (98-107); Estimated GFR-MDRD 80; Globulin 4.4 g/dL (2.4-3.5); Glucose 113 mg/dL (70-105); Potassium 3.9 mmol/L (3.5-5.1); Protein, Total 7.4 g/dL (6.0-8.3); Sodium 141 mmol/L (136-145)
[2019-02-02] MEDS: Furosemide 40 MG/4 ML VIAL SLOW IVP SCH ×2 (06:13→12:09)
[2019-02-02] MEDS ORDERED: Benzonatate 100 MG CAP PO PRN (07:44)
[2019-02-02] MEDS ORDERED: diphenhydrAMINE 25 MG CAP PO PRN (07:44)
[2019-02-02] MEDS ORDERED: Loratadine 10 MG TAB PO PRN (07:44)
[2019-02-02] MEDS ORDERED: Melatonin 3 MG TAB PO PRN (07:44)
[2019-02-02] MEDS ORDERED: Labetalol HCl 100 MG/20 ML VIAL SLOW IVP PRN (07:44)
[2019-02-02] MEDS ORDERED: Docusate 100 MG CAP PO PRN (07:44)
[2019-02-02] MEDS: Enoxaparin Sodium 30 MG/0.3 ML SYRINGE SC SCH (07:49)
[2019-02-02 08:02] LABS: INR-International Normal Ratio 1.3; PTT 38.7 SEC (22.9-36.1); Prothrombin Time 16.3 SEC (12.0-14.7)
[2019-02-02] MEDS: Sacubitril 49 MG/Valsartan 51 MG TABLET PO SCH ×2 (08:20→20:32)
[2019-02-02] MEDS: Carvedilol 25 MG TAB PO SCH ×2 (08:20→20:32)
[2019-02-02] MEDS: Furosemide 40 MG TAB PO SCH (08:20)
--- NOTE | 2019-02-02 13:04 | ULT ---
ULTRASOUND GUIDED PARACENTESIS: Date: 02/02/19 HISTORY: Symptomatic ascites. FINDINGS: Informed consent obtained prior to the procedure. Preprocedural imaging demonstrates significant asci marion throughout the abdomen/pelvis. Right lower quadrant prepped and draped in normal sterile fashion. Skin anesthetized with 1% buffered lidocaine. With direct sonographic guidance, 5 Mexican 360pieh cathet er advanced into the ascites and removal of the stylette yields yellow fluid. 5350 mL removed. The pa tient tolerated the procedure well. IMPRESSION: Successful ultrasound guided paracentesis yielding 5350 mL of yellow ascites. POS: OFF
--- NOTE | 2019-02-02 14:53 | PDOC.HOSPP ---
- Subjective Subjective: Seen and examined. This a.m. patient with severe abdominal distention, tight to the touch though it is nontender. Patient has had several paracentesis in the past, he tells me six. Patient does not aggressively restrict his fluid intake at home. Patient has no other complaints at this time. Patient later went for paracentesis in which 5.3 L of fluid was removed. - Objective Vital Signs & Weight: Vital Signs (12 hours) Temp Pulse Pulse Pulse Resp BP BP 02/02/19 13:33 67 71 120/75 126/70 02/02/19 12:44 67 16 02/02/19 11:25 96.3 F L 67 20 02/02/19 07:17 97.5 F L 75 20 02/02/19 04:20 97.7 F 76 14 BP BP Pulse Ox Pulse Ox Pulse Ox 02/02/19 13:33 95 94 L 02/02/19 12:44 02/02/19 11:25 126/75 96 02/02/19 07:17 125/66 97 02/02/19 04:20 113/64 94 L Weight Weight 220 lb 6.4 oz I&O: 02/01/19 02/02/19 02/03/19 06:59 06:59 06:59 Intake Total 360 Output Total 950 Balance -590 Result Diagrams: 02/02/19 04:48 02/02/19 04:48 Additional Labs: Accuchecks 02/02/19 00:40 POC Glucose 69 L Radiology Reviewed by me: Yes Hospitalist ROS - Review of Systems All other systems reviewed; all pertinent +/- noted in HPI/Subj - Medication Medications: Active Medications Generic Name Dose Route Start Last Admin Trade Name Freq PRN Reason Stop Dose Admin Albuterol/Ipratropium 3 ml 02/02/19 13:00 02/02/19 12:44 Duoneb NEB 3 ml [id number] LOUISA Administration Carvedilol 25 mg 02/02/19 09:00 02/02/19 08:20 Coreg PO 25 mg BID LOUISA Administration Enoxaparin Sodium 30 mg 02/02/19 09:00 02/02/19 07:49 Lovenox SC Not Given 0900 LOUISA Furosemide 40 mg 02/02/19 06:00 02/02/19 12:09 Lasix SLOW IVP Not Given 0600,1400 LOUISA Furosemide 40 mg 02/02/19 09:00 02/02/19 08:20 Lasix PO 40 mg DAILY LOUISA Administration Sacubitril/Valsartan 1 tab 02/02/19 09:00 02/02/19 08:20 Entresto 49 Mg-51 Mg Tablet PO 1 tab BID LOUISA Administration Sodium Chloride 10 ml 02/02/19 00:51 02/02/19 06:13 Flush - Normal Saline IVF 10 ml PRN PRN Administration Saline Flush - Exam General Appearance: NAD, awake alert Eye: PERRL ENT: normocephalic atraumatic, moist mucosa Neck: supple, symmetric, no lymphadenopathy Heart: no murmur, no gallops, no rubs Respiratory: CTAB, no wheezes, no rales, no ronchi Gastrointestinal: soft, non-tender, no guarding, no rigidity, distended Gastrointestinal - other findings: Firm to the touch, very distended Extremities: 1+ LE edema Skin: no lesions, no rashes Neurological: cranial nerve grossly intact, no weakness Musculoskeletal: normal tone, normal strength Psychiatric: normal affect, normal behavior, A&O x 3 Hosp A/P (1) Ascites Code(s): R18.8 - OTHER ASCITES Status: Acute (2) HTN (hypertension) Code(s): I10 - ESSENTIAL (PRIMARY) HYPERTENSION Status: Acute (3) Hx of coronary artery disease Code(s): Z86.79 - PERSONAL HISTORY OF OTHER DISEASES OF THE CIRCULATORY SYSTEM Status: Acute (4) Acute exacerbation of congestive heart failure Code(s): I50.9 - HEART FAILURE, UNSPECIFIED Status: Chronic (5) Cirrhosis of liver Code(s): K74.60 - UNSPECIFIED CIRRHOSIS OF LIVER Status: Chronic (6) DM2 (diabetes mellitus, type 2) Status: Chronic (7) Hepatitis B Status: Chronic - Plan Plan: medical unit with telemetry S/p paracentesis with 5.3 L of fluid removed diuretic therapy fluid restrictions cardiomyopathy regimen as able blood pressure control G.I. prophylaxis DVT prophylaxis Disposition: anticipate discharge in the next 24 to 48 hours pending clinical improvement. Patient will need improve compliance on fluid restrictions and diuretic therapy to avoid future hospitalizations.
[2019-02-03 05:07] LABS: #Eosinphils 0.1 thou/uL (0.0-0.7); #Lymphocytes 1.1 thou/uL (1.20-3.40); #Monocytes 0.4 thou/uL (0.11-0.59); #Neutrophils 1.8 thou/uL (1.40-6.50); %Basophils 0.3 % (0.0-1.0); %Eosinophils 2.6 % (0.0-10.0); %Lymphocytes 31.6 % (21.0-51.0); %Monocytes 10.9 % (0.0-10.0); %Neutrophils 54.5 % (42.0-75.0); Hemoglobin 11.4 g/dL (14.0-18.0); Mean Corpuscular HGB CONC 31.6 g/dL (32.0-36.0); Mean Corpuscular Hemoglobin 29.3 pg (27.0-31.0); Mean Corpuscular Volume 92.7 fL (78.0-98.0); Platelet Count 128 thou/uL (130-400); Red Blood Cell (RBC) Count 3.88 mill/uL (4.70-6.10); White Blood Cell (WBC) Count 3.4 thou/uL (4.8-10.8)
[2019-02-03 05:30] LABS: Anion Gap 9 mmol/L (10-20); BUN (Urea Nitrogen) 25 mg/dL (8.4-25.7); Calc. Creatinine Clearance 92 mL/min (70-130); Calcium 8.3 mg/dL (7.8-10.44); Carbon Dioxide 28 mmol/L (22-29); Chloride 106 mmol/L (98-107); Estimated GFR-MDRD 83; Glucose 101 mg/dL (70-105); Potassium 4.2 mmol/L (3.5-5.1); Sodium 139 mmol/L (136-145)
[2019-02-03] MEDS: Enoxaparin Sodium 30 MG/0.3 ML SYRINGE SC SCH (09:52)
[2019-02-03] MEDS: Furosemide 40 MG TAB PO SCH (09:52)
[2019-02-03] MEDS: Sacubitril 49 MG/Valsartan 51 MG TABLET PO SCH ×2 (09:52→19:36)
[2019-02-03] MEDS: Carvedilol 25 MG TAB PO SCH ×2 (09:52→19:36)
[2019-02-03] MEDS ORDERED: Acetaminophen 325 MG TAB PO PRN (13:58)
[2019-02-03] MEDS ORDERED: traMADol HCl 50 MG TAB PO PRN (13:59)
[2019-02-03] MEDS ORDERED: Furosemide 40 MG/4 ML VIAL SLOW IVP SCH (18:15)
--- NOTE | 2019-02-03 18:22 | PRG ---
DATE OF SERVICE: 02/03/2019 SUBJECTIVE: Mr. Shelby is a pleasant 58-year-old gentleman with nonischemic dilated cardiomyopathy. He is admitted to the hospital with volume overload and congestive heart failure. The patient has been on appropriate heart failure medicines for nearly 2 months now. Ultimately, the patient will qualify for a defibrillator. He is doing better now, but still has quite a bit of edema. OBJECTIVE: VITAL SIGNS: Blood pressure 113/70 and pulse 70. LUNGS: Clear. CARDIAC: Normal S1 and normal S2. ABDOMEN: Soft and nontender. EXTREMITIES: Moderate edema. ASSESSMENT: 1. Congestive heart failure, idiopathic dilated, nonischemic. 2. Cirrhosis. PLAN: 1. Continue intravenous diuretics. 2. Probably go home tomorrow. We will also add spironolactone. Job ID: [id number]
--- NOTE | 2019-02-03 22:16 | PDOC.HOSPP ---
- Subjective Encounter Date: 02/03/19 Encounter Time: 10:00 Subjective: Patient seen and examined for CHF exacerbation/Ascites. SOB improving. No CP. No new complaints. No overnight events - Objective Vital Signs & Weight: Vital Signs (12 hours) Temp Pulse Resp BP Pulse Ox 02/03/19 19:40 97.3 F L 71 19 129/65 97 02/03/19 19:32 71 14 97 02/03/19 15:36 97.7 F 70 22 H 113/70 93 L 02/03/19 13:12 82 16 98 02/03/19 11:34 97.6 F 66 16 136/84 99 Weight Weight 196 lb 12.8 oz I&O: 02/02/19 02/03/19 02/04/19 06:59 06:59 06:59 Intake Total 360 720 Output Total 950 700 Balance -590 20 Result Diagrams: 02/03/19 04:38 02/03/19 04:38 Radiology Reviewed by me: Yes (CXR - CHF) EKG Reviewed by me: Yes (Tele SR) Hospitalist ROS - Review of Systems Cardiovascular: reports: orthopnea, edema. denies: chest pain, palpitations, paroxysmal noc. dyspnea, light headedness, other Gastrointestinal: denies: nausea, vomiting, abdominal pain, diarrhea, constipation, melena, hematochezia, other - Medication Medications: Active Medications Generic Name Dose Route Start Last Admin Trade Name Freq PRN Reason Stop Dose Admin Albuterol/Ipratropium 3 ml 02/02/19 13:00 02/03/19 19:32 Duoneb NEB 3 ml [id number] LOUISA Administration Carvedilol 25 mg 02/02/19 09:00 02/03/19 19:36 Coreg PO 25 mg BID LOUISA Administration Enoxaparin Sodium 30 mg 02/02/19 09:00 02/03/19 09:52 Lovenox SC Not Given 0900 LOUISA Furosemide 40 mg 02/02/19 09:00 02/03/19 09:52 Lasix PO 40 mg DAILY LOUISA Administration Sacubitril/Valsartan 1 tab 02/02/19 09:00 02/03/19 19:36 Entresto 49 Mg-51 Mg Tablet PO 1 tab BID LOUISA Administration Sodium Chloride 10 ml 02/02/19 00:51 02/03/19 18:19 Flush - Normal Saline IVF 10 ml PRN PRN Administration Saline Flush - Exam General Appearance: NAD Heart: RRR, no rubs Respiratory: no wheezes, rales, rhonchi Gastrointestinal: soft, normal bowel sounds, distended Extremities: 1+ LE edema Psychiatric: normal affect, A&O x 3 Hosp A/P - Plan DVT proph w/lovenox, DVT proph w/SCDs Acute on chronic systolic HF (POA) Ascites due to CHF/Cirrhosis s/p paracentesis(POA) Chronic Cirrhosis with coagulopathy/thrombocytopenia DM2 HTN CKD 2 Chronic Anemia PLAN: Cont Diuresis Cont Entesto Add Fluid rest Await Cardiology input Cont other meds AM labs
[2019-02-04 05:14] LABS: Anion Gap 9 mmol/L (10-20); BUN (Urea Nitrogen) 28 mg/dL (8.4-25.7); Calc. Creatinine Clearance 92 mL/min (70-130); Calcium 8.3 mg/dL (7.8-10.44); Carbon Dioxide 30 mmol/L (22-29); Chloride 105 mmol/L (98-107); Estimated GFR-MDRD 86; Glucose 136 mg/dL (70-105); Potassium 4.2 mmol/L (3.5-5.1); Sodium 140 mmol/L (136-145)
[2019-02-04] MEDS ORDERED: Spironolactone 25 MG TAB PO SCH (08:00)
[2019-02-04] MEDS: Carvedilol 25 MG TAB PO SCH (09:12)
[2019-02-04] MEDS: Furosemide 40 MG TAB PO SCH (09:12)
[2019-02-04] MEDS: Sacubitril 49 MG/Valsartan 51 MG TABLET PO SCH (09:15)
[2019-02-04 13:09] VITALS: BP 133/75; TEMP 98.3
--- NOTE | 2019-02-04 13:45 | PRG ---
DATE OF SERVICE: 02/04/2019 SUBJECTIVE: Mr. Shelby said he put out a lot of urine last night. He is feeling better. He wants to go home. OBJECTIVE: VITAL SIGNS: Blood pressure 122/75, pulse 70s and regular. LUNGS: Clear. CARDIAC: Normal S1. Normal S2. ABDOMEN: still has ascites. EXTREMITIES: Wfno-uv-nhtugbdn edema. PERTINENT LABORATORY DATA: Creatinine is 1.07 and potassium is 4.2. ASSESSMENT: 1. Congestive heart failure, systolic, acute on chronic, somewhat better. 2. Ascites. PLAN: 1. He is on carvedilol 25 mg twice a day. 2. Entresto 49/51 twice a day. 3. Spironolactone started 12.5 mg a day. 4. Furosemide 40 mg a day. To be asked to see us in the office, chance of rehospitalization are very high. Job ID: [id number]
--- NOTE | 2019-02-04 20:11 | DIS ---
DATE OF ADMISSION: 02/02/2019 DATE OF DISCHARGE: 02/04/2019 DISCHARGE DISPOSITION: Home. FOLLOWUP: 1. Follow up with primary care physician in 1 week. 2. Follow up with Cardiology, Dr. Regan, 2 days later as scheduled. ALLERGIES: THE PATIENT IS ALLERGIC TO PENICILLIN. BASIC METABOLIC PROFILE AFTER 1 WEEK. PRIMARY CARE PHYSICIAN ADVISED TO FOLLOW. DISCHARGE MEDICATIONS: 1. Aldactone 12.5 mg daily. 2. Entresto 49/51 one tablet b.i.d. 3. Claritin as needed. 4. DuoNeb as needed. 5. Lasix 40 mg daily. 6. Carvedilol 25 mg b.i.d. 7. Aspirin 81 mg daily. The patient was seen and examined on the day of discharge. Denies any new complaints. No chest pain, shortness of breath, or palpitations reported. BRIEF HOSPITAL COURSE: The patient is a 58-year-old male with congestive heart failure and cirrhosis of the liver, presented to the hospital with worsening shortness of breath. His workup was consistent with congestive heart failure exacerbation. He was started on IV diuretics. Due to significant symptomatic ascites, he underwent paracentesis draining 5350 mL of yellow fluid. His blood cultures were negative. He was evaluated by Cardiology. Low-dose Aldactone has been added. He has been cleared by Cardiology for discharge. He was extensively counseled on congestive heart failure as well as importance of fluid restriction. His weight on admission was 222 pounds and at discharge is 190 pounds. He has been cleared by Cardiology for discharge. FINAL DIAGNOSES: 1. Blqem-de-[id number] systolic heart failure exacerbation. 2. Symptomatic ascites due to congestive heart failure as well as cirrhosis, status post paracentesis. 3. Chronic cirrhosis with coagulopathy and thrombocytopenia. 4. Diabetes mellitus type 2. 5. Hypertension. 6. Chronic kidney disease, stage 2. 7. Chronic anemia. 8. Leukopenia. 9. Mild thrombocytopenia. 10. Significant labs, BNP 2219. 11. Troponins were negative. PLAN: Plan of care was discussed with the patient in detail. He stated understanding. Job ID: [id number]
== END 2019-02-04 15:30 | disposition home or self-care (01) | DRG 432 ==
LOC: ERS 18:27 → 2SW 21:52 → OBSVTOIN 02-02 14:48
PROVIDERS: ADMIT Internal Medicine; ATTEND Internal Medicine
PROC: 0W9G3ZZ Drainage of Peritoneal Cavity, Percutaneous Approach (ICD-10-PCS; principal; 2019-02-03)
DX: K74.60 Unspecified cirrhosis of liver (principal); I50.23 Acute on chronic systolic (congestive) heart failure; I13.0 Hypertensive heart and chronic kidney disease with heart failure and stage 1 through stage 4 chronic kidney disease, or unspecified chronic kidney disease; D68.4 Acquired coagulation factor deficiency; R18.8 Other ascites; B18.1 Chronic viral hepatitis B without delta-agent; D69.59 Other secondary thrombocytopenia; N18.2 Chronic kidney disease, stage 2 (mild); D63.1 Anemia in chronic kidney disease; E11.22 Type 2 diabetes mellitus with diabetic chronic kidney disease; Z88.0 Allergy status to penicillin; Z79.899 Other long term (current) drug therapy; Z79.82 Long term (current) use of aspirin
CPT/HCPCS: 36415; 36416; 49083; 71045; 80048; 80053; 81003; 81015; 83605; 83735; 83880; 84484; 85025; 85610; 85730; 87040; 93005; 93798; 94640; 96374; J1940; J7620

== ENCOUNTER 2019-03-05 10:45 | Emergency (ER) | payer MEDICAID, MEDICARE ==
[2019-03-05 14:18] LABS: #Eosinphils 0.1 thou/uL (0.0-0.7); #Lymphocytes 0.9 thou/uL (1.20-3.40); #Monocytes 0.3 thou/uL (0.11-0.59); #Neutrophils 1.9 thou/uL (1.40-6.50); %Basophils 0.8 % (0.0-1.0); %Eosinophils 2.6 % (0.0-10.0); %Lymphocytes 27.5 % (21.0-51.0); %Monocytes 10.2 % (0.0-10.0); Hemoglobin 12.6 g/dL (14.0-18.0); Mean Corpuscular Volume 93.6 fL (78.0-98.0); Mean Platelet Volume 9.8 fL (7.4-10.4); Platelet Count 111 thou/uL (130-400); RBC Distribution Width 14.7 % (11.5-14.5); Red Blood Cell (RBC) Count 4.35 mill/uL (4.70-6.10); White Blood Cell (WBC) Count 3.2 thou/uL (4.8-10.8)
[2019-03-05 14:43] LABS: ALT (SGPT) 7 U/L (8-55); AST (SGOT) 18 U/L (5-34); Albumin 3.2 g/dL (3.5-5.0); Alkaline Phosphatase 109 U/L (40-110); Anion Gap 12 mmol/L (10-20); BUN (Urea Nitrogen) 27 mg/dL (8.4-25.7); Bilirubin, Total 0.7 mg/dL (0.2-1.2); Calc. Creatinine Clearance 0 mL/min (70-130); Calcium 8.6 mg/dL (7.8-10.44); Carbon Dioxide 26 mmol/L (22-29); Chloride 107 mmol/L (98-107); Estimated GFR-MDRD Greater than 90; Globulin 4.9 g/dL (2.4-3.5); Glucose 73 mg/dL (70-105); Potassium 4.4 mmol/L (3.5-5.1); Protein, Total 8.1 g/dL (6.0-8.3); Sodium 141 mmol/L (136-145)
== END 2019-03-05 15:12 | disposition home or self-care (01) ==
LOC: ERS 10:45
DX: R18.8 Other ascites (principal); I11.0 Hypertensive heart disease with heart failure; I50.9 Heart failure, unspecified; E11.9 Type 2 diabetes mellitus without complications; F41.9 Anxiety disorder, unspecified; Z79.84 Long term (current) use of oral hypoglycemic drugs; Z79.899 Other long term (current) drug therapy; Z79.82 Long term (current) use of aspirin
CPT/HCPCS: 36415; 49082; 80053; 83880; 85025

== ENCOUNTER 2019-03-27 09:59 | Emergency (ER) | payer MEDICARE ==
[2019-03-27 11:31] LABS: #Eosinphils 0.1 thou/uL (0.0-0.7); #Lymphocytes 0.9 thou/uL (1.20-3.40); #Monocytes 0.3 thou/uL (0.11-0.59); %Basophils 1.3 % (0.0-1.0); %Eosinophils 3.3 % (0.0-10.0); %Lymphocytes 27.4 % (21.0-51.0); %Monocytes 9.6 % (0.0-10.0); %Neutrophils 58.3 % (42.0-75.0); Hemoglobin 12.2 g/dL (14.0-18.0); Mean Corpuscular HGB CONC 30.2 g/dL (32.0-36.0); Mean Corpuscular Hemoglobin 28.8 pg (27.0-31.0); Mean Corpuscular Volume 95.5 fL (78.0-98.0); Mean Platelet Volume 9.2 fL (7.4-10.4); Platelet Count 120 thou/uL (130-400); RBC Distribution Width 14.2 % (11.5-14.5); Red Blood Cell (RBC) Count 4.23 mill/uL (4.70-6.10); White Blood Cell (WBC) Count 3.4 thou/uL (4.8-10.8)
[2019-03-27 11:41] LABS: INR-International Normal Ratio 1.3; PTT 38.2 SEC (22.9-36.1); Prothrombin Time 16.1 SEC (12.0-14.7)
[2019-03-27 11:59] LABS: ALT (SGPT) Less than 7 U/L (8-55); AST (SGOT) 17 U/L (5-34); Albumin 3.3 g/dL (3.5-5.0); Alkaline Phosphatase 107 U/L (40-110); Anion Gap 10 mmol/L (10-20); BUN (Urea Nitrogen) 27 mg/dL (8.4-25.7); Bilirubin, Total 0.7 mg/dL (0.2-1.2); Calc. Creatinine Clearance 0 mL/min (70-130); Calcium 8.5 mg/dL (7.8-10.44); Carbon Dioxide 34 mmol/L (22-29); Chloride 104 mmol/L (98-107); Estimated GFR-MDRD 77; Globulin 4.7 g/dL (2.4-3.5); Glucose 99 mg/dL (70-105); Potassium 4.4 mmol/L (3.5-5.1); Sodium 144 mmol/L (136-145)
== END 2019-03-27 13:00 | disposition home or self-care (01) ==
LOC: ERS 09:59
DX: E87.70 Fluid overload, unspecified (principal); R18.8 Other ascites; I11.0 Hypertensive heart disease with heart failure; I50.9 Heart failure, unspecified; E11.9 Type 2 diabetes mellitus without complications; F41.9 Anxiety disorder, unspecified
CPT/HCPCS: 49083; 80053; 85025; 85610; 85730

== ENCOUNTER 2019-04-25 18:38 | Emergency (ER) | payer MEDICARE ==
[2019-04-25 19:37] LABS: #Eosinphils 0.1 thou/uL (0.0-0.7); #Lymphocytes 0.9 thou/uL (1.20-3.40); #Monocytes 0.5 thou/uL (0.11-0.59); #Neutrophils 4.1 thou/uL (1.40-6.50); %Basophils 0.6 % (0.0-1.0); %Eosinophils 2.2 % (0.0-10.0); %Lymphocytes 15.8 % (21.0-51.0); %Monocytes 8.1 % (0.0-10.0); %Neutrophils 73.4 % (42.0-75.0); Hemoglobin 12.8 g/dL (14.0-18.0); Mean Corpuscular HGB CONC 31.3 g/dL (32.0-36.0); Mean Corpuscular Hemoglobin 29.7 pg (27.0-31.0); Mean Platelet Volume 9.7 fL (7.4-10.4); Platelet Count 120 thou/uL (130-400); White Blood Cell (WBC) Count 5.5 thou/uL (4.8-10.8)
[2019-04-25 19:43] LABS: INR-International Normal Ratio 1.3; PTT 37.6 SEC (22.9-36.1); Prothrombin Time 15.8 SEC (12.0-14.7)
[2019-04-25 19:58] LABS: ALT (SGPT) 7 U/L (8-55); AST (SGOT) 19 U/L (5-34); Albumin 3.3 g/dL (3.5-5.0); Alkaline Phosphatase 115 U/L (40-110); Anion Gap 11 mmol/L (10-20); BUN (Urea Nitrogen) 23 mg/dL (8.4-25.7); Bilirubin, Total 0.5 mg/dL (0.2-1.2); Calc. Creatinine Clearance 0 mL/min (70-130); Calcium 8.9 mg/dL (7.8-10.44); Carbon Dioxide 32 mmol/L (22-29); Chloride 101 mmol/L (98-107); Estimated GFR-MDRD 80; Globulin 4.6 g/dL (2.4-3.5); Glucose 77 mg/dL (70-105); Potassium 4.7 mmol/L (3.5-5.1); Protein, Total 7.9 g/dL (6.0-8.3); Sodium 139 mmol/L (136-145)
[2019-04-25] MEDS ORDERED: Oxymetazoline HCl 0.05% (30 ML BOT) NS SCH (22:45)
== END 2019-04-26 00:03 | disposition home or self-care (01) ==
LOC: ERS 18:38
DX: R04.0 Epistaxis (principal); I11.0 Hypertensive heart disease with heart failure; I50.9 Heart failure, unspecified; E11.9 Type 2 diabetes mellitus without complications; F41.9 Anxiety disorder, unspecified; Z79.82 Long term (current) use of aspirin; Z79.899 Other long term (current) drug therapy
CPT/HCPCS: 36415; 80053; 85025; 85610; 85730; 99283

== ENCOUNTER 2019-07-08 23:35 | Emergency (ER) | payer MEDICARE, MEDICAID ==
[2019-07-09 00:56] LABS: #Eosinphils 0.1 thou/uL (0.0-0.7); #Lymphocytes 0.9 thou/uL (1.20-3.40); #Monocytes 0.5 thou/uL (0.11-0.59); #Neutrophils 2.7 thou/uL (1.40-6.50); %Basophils 0.9 % (0.0-1.0); %Eosinophils 2.9 % (0.0-10.0); %Lymphocytes 20.4 % (21.0-51.0); %Monocytes 11.5 % (0.0-10.0); %Neutrophils 64.3 % (42.0-75.0); Hemoglobin 11.6 g/dL (14.0-18.0); Mean Corpuscular HGB CONC 31.3 g/dL (32.0-36.0); Mean Corpuscular Hemoglobin 29.9 pg (27.0-31.0); Mean Corpuscular Volume 95.3 fL (78.0-98.0); Mean Platelet Volume 9.4 fL (7.4-10.4); Platelet Count 134 thou/uL (130-400); RBC Distribution Width 14.5 % (11.5-14.5); Red Blood Cell (RBC) Count 3.89 mill/uL (4.70-6.10); White Blood Cell (WBC) Count 4.2 thou/uL (4.8-10.8)
[2019-07-09 01:00] LABS: INR-International Normal Ratio 1.3; PTT 37.8 SEC (22.9-36.1); Prothrombin Time 16.2 sec (12.0-14.7)
[2019-07-09 01:19] LABS: ALT (SGPT) Less than 7 U/L (8-55); AST (SGOT) 16 U/L (5-34); Albumin 3.1 g/dL (3.5-5.0); Alkaline Phosphatase 116 U/L (40-110); Anion Gap 14 mmol/L (10-20); BUN (Urea Nitrogen) 36 mg/dL (8.4-25.7); Bilirubin, Total 0.5 mg/dL (0.2-1.2); Calc. Creatinine Clearance 0 mL/min (70-130); Calcium 8.3 mg/dL (7.8-10.44); Carbon Dioxide 25 mmol/L (22-29); Chloride 104 mmol/L (98-107); Estimated GFR-MDRD 59; Globulin 4.9 g/dL (2.4-3.5); Glucose 147 mg/dL (70-105); Potassium 5.2 mmol/L (3.5-5.1); Sodium 138 mmol/L (136-145)
== END 2019-07-09 02:26 | disposition home or self-care (01) ==
LOC: ERS 23:35
DX: R18.8 Other ascites (principal); I11.0 Hypertensive heart disease with heart failure; I50.9 Heart failure, unspecified; E11.9 Type 2 diabetes mellitus without complications; F41.9 Anxiety disorder, unspecified; Z79.899 Other long term (current) drug therapy
CPT/HCPCS: 36415; 49082; 80053; 85025; 85610; 85730

== ENCOUNTER 2019-12-25 06:22 | Outpatient (CLI) | payer MEDICARE, MEDICAID ==
[2019-12-26 15:00] LABS: SARS-CoV-2 MS2 Positive; SARS-CoV-2 N Gene Negative; SARS-CoV-2 S Gene Negative; SARS-CoV-2 by NAA Not Detected (NotDetected); SARS-CoV-2 orf1ab Negative
== END 2019-12-25 06:23 | disposition home or self-care (01) ==
LOC: LABBT 06:22
PROVIDERS: ATTEND Ophthalmology Retina Specialist
DX: H54.7 Unspecified visual loss (principal); Z20.828 Contact with and (suspected) exposure to other viral communicable diseases
CPT/HCPCS: 87635; U0003

== ENCOUNTER 2019-12-30 09:12 | Day surgery (SDC) | payer MEDICARE, MEDICAID ==
[2019-12-29 13:59] VITALS: BMI 28.1
[~2019-12-30 09:12] MED LIST changes: +EPINEPHrine 0.3 MG in Ophthalmic Irrigation Solution 500 ML IRR SCH; +Fentanyl 100 MCG/2 ML VIAL ONE; +Midazolam HCl 2 mg/2 ml Vial ONE; -Prevnar 13-Val Conj/PF 0.5 ML SYRINGE IM ONE
[2019-12-30] MEDS ORDERED: Cyclopentolate 1% Opth Drop 2 ML BOT ONE (09:57)
[2019-12-30] MEDS ORDERED: Phenylephrine 2.5% Ophth Soln 5 ML BOT ONE (09:57)
[2019-12-30] MEDS ORDERED: Triamcinolone 40 MG/ML VIAL ONE (11:15)
[2019-12-30] MEDS ORDERED: Lidocaine 4% PF 5 ML AMP ONE (11:15)
[2019-12-30] MEDS ORDERED: Bupivacaine PF 0.75% SDV 10 ML ONE (11:15)
[2019-12-30] MEDS ORDERED: PROPOFOL 200 MG/20 ML VIAL ONE (11:15)
[2019-12-30] MEDS ORDERED: Maxitrol 0.1% Opth Oint 3.5 GM TUBE ONE (11:15)
--- NOTE | 2019-12-30 13:15 | OP ---
DATE OF PROCEDURE: 12/30/2019 PRINCIPAL PREOPERATIVE DIAGNOSES: 1. Vitreous hemorrhage, right eye. 2. Proliferative diabetic retinopathy, right eye. PROCEDURES PERFORMED: 1. 25-gauge pars plana vitrectomy, right eye. 2. Panretinal photocoagulation with endolaser, right eye. ESTIMATED BLOOD LOSS: None. SPECIMENS REMOVED: None. COMPLICATIONS: None. ANESTHESIA: MAC with subtenon block. DESCRIPTION OF PROCEDURE: The patient was identified in the preoperative holding area, where the correct eye being the right eye was marked for surgery. The patient was taken to the operating room, where MAC anesthesia was induced. The right eye was prepped and draped in usual sterile ophthalmic fashion for surgery. A wire-clip lid speculum was placed. An inferonasal conjunctival peritomy was fashioned with Lashon scissors for administration of subtenon block. The block consisted of 1:1 ratio of 4% lidocaine and 0.75% Marcaine. Total of 5 mL was administered. A standard 25-gauge pars plana vitrectomy platform was fashioned with trocars placed approximately 4 mm from the limbus. The infusion was noted to be within the vitreous cavity prior to being turned on to an infusion pressure of 30 mmHg. The light pipe and microvitrector were introduced in the eye under visualization of the BIOM viewing system. A significant fundus obscuring vitreous hemorrhage was noted. A careful core vitrectomy was performed, which allowed for progressively improved visualization of the posterior pole. Following completion of vitrectomy, core vitrectomy and peripheral shave vitrectomy were performed. Examination of the retina revealed intraretinal hemorrhage throughout the retina with apparent neovascularization near the superotemporal arcade vessels. The panretinal photocoagulation was placed in the typical fashion with sparing of the 3 and 9 o'clock meridians with the use of the endolaser. The cannulas were sequentially removed. All sclerotomies were noted to be watertight. Subconjunctival Kenalog was injected. The wire-cut lid speculum was removed followed by application of TobraDex ophthalmic ointment and a light patch and shield. The patient tolerated the procedure well and was taken to outpatient recovery area in good condition. Job ID: [id number]
== END 2019-12-30 13:50 | disposition home or self-care (01) ==
LOC: SDC 09:12
PROVIDERS: ATTEND Ophthalmology Retina Specialist
PROC: 08T43ZZ Resection of Right Vitreous, Percutaneous Approach (ICD-10-PCS; principal; 2019-12-30)
PROC: 085E3ZZ Destruction of Right Retina, Percutaneous Approach (ICD-10-PCS; 2019-12-30)
DX: E11.3591 Type 2 diabetes mellitus with proliferative diabetic retinopathy without macular edema, right eye (principal); H43.11 Vitreous hemorrhage, right eye; Z79.82 Long term (current) use of aspirin; Z88.0 Allergy status to penicillin
CPT/HCPCS: J0171; J2001; J2250; J2704; J3010; J3301; J3490

== ENCOUNTER 2020-05-26 17:13 | Observation (INO) | payer MEDICARE, MEDICAID ==
[2020-05-26 17:59] LABS: Hemoglobin 12.8 g/dL (14.0-18.0); Mean Corpuscular HGB CONC 32.5 g/dL (32.0-36.0); Mean Corpuscular Hemoglobin 30.4 pg (27.0-31.0); Mean Corpuscular Volume 93.5 fL (78.0-98.0); Mean Platelet Volume 9.6 fL (7.4-10.4); Platelet Count 116 thou/uL (130-400); RBC Distribution Width 13.2 % (11.5-14.5); Red Blood Cell (RBC) Count 4.23 mill/uL (4.70-6.10); White Blood Cell (WBC) Count 5.4 thou/uL (4.8-10.8)
[2020-05-26] MEDS ORDERED: Aspirin Chewable 81 MG TAB ONE (18:15)
[2020-05-26 18:19] LABS: ALT (SGPT) 7 U/L (8-55); AST (SGOT) 14 U/L (5-34); Albumin 3.4 g/dL (3.5-5.0); Alkaline Phosphatase 93 U/L (40-110); Anion Gap 12 mmol/L (10-20); BUN (Urea Nitrogen) 36 mg/dL (8.4-25.7); Bilirubin, Total 0.5 mg/dL (0.2-1.2); Calc. Creatinine Clearance 0 mL/min (70-130); Calcium 8.4 mg/dL (7.8-10.44); Carbon Dioxide 27 mmol/L (22-29); Chloride 105 mmol/L (98-107); Globulin 4.3 g/dL (2.4-3.5); Glucose 96 mg/dL (70-105); Lipase 19 U/L (8-78); Potassium 4.1 mmol/L (3.5-5.1); Protein, Total 7.7 g/dL (6.0-8.3); Sodium 140 mmol/L (136-145)
[2020-05-26 18:22] LABS: #Eosinphils 0.1 thou/uL (0.0-0.7); #Lymphocytes 1.2 thou/uL (1.20-3.40); #Monocytes 0.5 thou/uL (0.11-0.59); #Neutrophils 3.6 thou/uL (1.40-6.50); %Basophils 0.4 % (0.0-1.0); %Eosinophils 1.7 % (0.0-10.0); %Lymphocytes 22.7 % (21.0-51.0); %Monocytes 8.6 % (0.0-10.0); %Neutrophils 66.7 % (42.0-75.0)
[2020-05-26 18:24] LABS: INR-International Normal Ratio 1.2; MDiff Complete? YES; Platelet Morphology Comment Appears Decreased; Polychromasia SLIGHT = 2-3 cells (100X) (0-2/hpf); Prothrombin Time 15.7 sec (12.0-14.7)
[2020-05-26] MEDS ORDERED: Furosemide 40 MG/4 ML VIAL ONE (18:30)
[2020-05-26 21:34] LABS: Troponin I 0.019 ng/mL (< 0.028)
[2020-05-26] MEDS ORDERED: Nitroglycerin 0.4 MG TAB (25 Tab Bottle) SL PRN (21:48)
[2020-05-26 22:05] LABS: Hemoglobin A1c 7.9 % (4.0-6.0)
[2020-05-26] MEDS ORDERED: Carvedilol 25 MG TAB PO SCH (22:15)
[2020-05-27 00:14] LABS: Troponin I 0.018 ng/mL (< 0.028)
[2020-05-27 02:33] LABS: SARS-CoV-2 PCR by NAA Not Detected (NotDetected)
[2020-05-27 03:31] VITALS: BMI 28.9
[2020-05-27 04:47] LABS: Medtox Reader # READER 4
[2020-05-27 04:48] LABS: Amphetamine Not Detected (NotDetected); Barbiturates Screen Not Detected (NotDetected); Benzodiazepine Screen Not Detected (NotDetected); Cocaine Metabolite Screen Not Detected (NotDetected); Medtox Control Line Valid? VALID (VALID); Methadone Not Detected (NotDetected); Methamphetamine Not Detected (NotDetected); Opiate Screen Not Detected (NotDetected); Oxycodone Screen Not Detected (NotDetected); Phencyclidine (PCP) Not Detected (NotDetected); THC/Cannabinoid Screen Not Detected (NotDetected); Tricyclic Screen Not Detected (NotDetected)
[2020-05-27 05:20] LABS: #Eosinphils 0.1 thou/uL (0.0-0.7); #Lymphocytes 1.2 thou/uL (1.20-3.40); #Monocytes 0.4 thou/uL (0.11-0.59); #Neutrophils 2.8 thou/uL (1.40-6.50); %Basophils 0.5 % (0.0-1.0); %Eosinophils 1.9 % (0.0-10.0); %Lymphocytes 26.1 % (21.0-51.0); %Monocytes 9.7 % (0.0-10.0); %Neutrophils 61.8 % (42.0-75.0); Hemoglobin 12.5 g/dL (14.0-18.0); Mean Corpuscular HGB CONC 32.7 g/dL (32.0-36.0); Mean Corpuscular Hemoglobin 30.6 pg (27.0-31.0); Mean Corpuscular Volume 93.7 fL (78.0-98.0); Mean Platelet Volume 9.4 fL (7.4-10.4); Platelet Count 116 thou/uL (130-400); RBC Distribution Width 13.1 % (11.5-14.5); Red Blood Cell (RBC) Count 4.08 mill/uL (4.70-6.10); White Blood Cell (WBC) Count 4.5 thou/uL (4.8-10.8)
[2020-05-27 05:40] LABS: ALT (SGPT) 7 U/L (8-55); AST (SGOT) 13 U/L (5-34); Albumin 3.1 g/dL (3.5-5.0); Alkaline Phosphatase 87 U/L (40-110); Anion Gap 14 mmol/L (10-20); BUN (Urea Nitrogen) 36 mg/dL (8.4-25.7); Bilirubin, Total 0.4 mg/dL (0.2-1.2); Calc. Creatinine Clearance 82 mL/min (70-130); Calcium 8.4 mg/dL (7.8-10.44); Carbon Dioxide 26 mmol/L (22-29); Cardiac Risk 3.9 (Less than 4.5); Chloride 102 mmol/L (98-107); Cholesterol 116 mg/dl (< 200 Desired); Globulin 4.2 g/dL (2.4-3.5); Glucose 167 mg/dL (70-105); HDL Cholesterol 30 mg/dL (>60 Neg Risk); LDL Cholesterol, Calculated 68 mg/dL; Potassium 3.5 mmol/L (3.5-5.1); Protein, Total 7.3 g/dL (6.0-8.3); Sodium 138 mmol/L (136-145); Triglycerides 90 mg/dL (Less than 150)
[2020-05-27] MEDS ORDERED: metFORMIN 500 MG TAB PO SCH (08:00)
[2020-05-27] MEDS: Aspirin 81 mg Enteric Coated Tablet PO SCH (08:46)
[2020-05-27] MEDS: Carvedilol 25 MG TAB PO SCH ×2 (08:46→17:45)
[2020-05-27] MEDS: Spironolactone 25 MG TAB PO SCH (08:47)
[2020-05-27] MEDS ORDERED: Aspirin Chewable 81 MG TAB PO SCH (09:00)
[2020-05-27] MEDS ORDERED: Enoxaparin Sodium 40 MG/0.4 ML SYRINGE SC SCH (09:00)
[2020-05-27] MEDS ORDERED: Carvedilol 25 MG TAB PO SCH (09:00)
[2020-05-27] MEDS ORDERED: Furosemide 40 MG/4 ML VIAL SLOW IVP SCH ×3 (09:00)
[2020-05-27] MEDS ORDERED: Insulin Regular 300 UNITS/3 ML VIAL SC PRN ×2 (10:53)
[2020-05-27] MEDS ORDERED: Dextrose 5% in Water 1,000 ML IV PRN (10:53)
[2020-05-27] MEDS ORDERED: Dextrose 50% Abboject 50 ML SYRINGE SLOW IVP PRN (10:53)
[2020-05-27] MEDS: Furosemide 40 MG/4 ML VIAL SLOW IVP SCH (20:26)
[2020-05-27] MEDS ORDERED: Atorvastatin Calcium 40 MG TAB PO SCH (21:00)
[2020-05-28 05:11] LABS: #Basophils 0.1 thou/uL (0.0-0.2); #Eosinphils 0.1 thou/uL (0.0-0.7); #Lymphocytes 1.5 thou/uL (1.20-3.40); #Monocytes 0.6 thou/uL (0.11-0.59); #Neutrophils 3.4 thou/uL (1.40-6.50); %Basophils 0.9 % (0.0-1.0); %Eosinophils 2.1 % (0.0-10.0); %Lymphocytes 26.2 % (21.0-51.0); %Monocytes 10.5 % (0.0-10.0); %Neutrophils 60.3 % (42.0-75.0); Hemoglobin 14.1 g/dL (14.0-18.0); Mean Corpuscular HGB CONC 31.8 g/dL (32.0-36.0); Mean Corpuscular Hemoglobin 29.6 pg (27.0-31.0); Mean Corpuscular Volume 93.2 fL (78.0-98.0); Mean Platelet Volume 9.2 fL (7.4-10.4); Platelet Count 152 thou/uL (130-400); RBC Distribution Width 13.2 % (11.5-14.5); Red Blood Cell (RBC) Count 4.76 mill/uL (4.70-6.10); White Blood Cell (WBC) Count 5.7 thou/uL (4.8-10.8)
[2020-05-28 05:40] LABS: ALT (SGPT) Less than 7 U/L (8-55); AST (SGOT) 13 U/L (5-34); Alkaline Phosphatase 90 U/L (40-110); Anion Gap 11 mmol/L (10-20); BUN (Urea Nitrogen) 29 mg/dL (8.4-25.7); Bilirubin, Total 0.5 mg/dL (0.2-1.2); Calc. Creatinine Clearance 76 mL/min (70-130); Calcium 8.3 mg/dL (7.8-10.44); Carbon Dioxide 32 mmol/L (22-29); Chloride 100 mmol/L (98-107); Globulin 4.4 g/dL (2.4-3.5); Glucose 149 mg/dL (70-105); Potassium 3.7 mmol/L (3.5-5.1); Protein, Total 7.4 g/dL (6.0-8.3); Sodium 139 mmol/L (136-145)
[2020-05-28 08:33] VITALS: BP 124/80; TEMP 97.9
[2020-05-28] MEDS: Aspirin 81 mg Enteric Coated Tablet PO SCH (08:42)
[2020-05-28] MEDS: Furosemide 40 MG/4 ML VIAL SLOW IVP SCH (08:43)
[2020-05-28] MEDS: Spironolactone 25 MG TAB PO SCH (08:43)
[2020-05-28] MEDS: Carvedilol 25 MG TAB PO SCH (08:43)
[2020-05-28] MEDS ORDERED: Furosemide 40 MG TAB PO PRN (08:45)
[2020-05-28] MEDS ORDERED: Empagliflozin 10 MG TAB PO SCH (09:00)
== END 2020-05-28 12:55 | disposition home or self-care (01) ==
LOC: ERS 17:13 → ERHOLD 18:00 → 2SW 05-27 03:14
PROVIDERS: ADMIT Family Medicine; ATTEND Family Medicine
DX: I11.0 Hypertensive heart disease with heart failure (principal); I50.23 Acute on chronic systolic (congestive) heart failure; N17.9 Acute kidney failure, unspecified; I42.8 Other cardiomyopathies; K74.69 Other cirrhosis of liver; R18.8 Other ascites; F10.11 Alcohol abuse, in remission; F14.11 Cocaine abuse, in remission; E11.9 Type 2 diabetes mellitus without complications; E78.5 Hyperlipidemia, unspecified; I34.0 Nonrheumatic mitral (valve) insufficiency; Z91.14 Patient's other noncompliance with medication regimen; Z79.82 Long term (current) use of aspirin; Z79.899 Other long term (current) drug therapy; Z88.0 Allergy status to penicillin; Z20.822 Contact with and (suspected) exposure to COVID-19
CPT/HCPCS: 71045; 80053 ×3; 80061; 80306; 82962 ×2; 83036; 83690; 83735; 83880; 84484 ×2; 85025 ×3; 85610; 93005; 93306; 96374; 96376 ×2; 99285; G0378 ×4; U0003; U0005; 36415; 36416; 87635; J1940

== ENCOUNTER 2020-09-08 17:43 | Emergency (ER) | payer MEDICARE, MEDICAID ==
[2020-09-08 18:44] LABS: Actual Bicarbonate (HCO3v) 28 mEq/L (22-28); Analyzer IN Cardio ER; Base Excess 1.4 mEq/L (-2.0 to +3.0); Calcium, Ionized (venous) 1.09 mmol/L (1.16-1.32); Chloride (VBG) 96 mmol/L (98-106); Hemoglobin (Hb) 15.2 g/dL (13.1-17.2); Potassium (VBG) 4.64 mmol/L (3.70-5.30); Sodium 133.1 mmol/L (133-146); pH (venous) 7.36 (7.32-7.43)
[2020-09-08 18:51] LABS: #Eosinphils 0.1 thou/uL (0.0-0.7); #Lymphocytes 1.3 thou/uL (1.20-3.40); #Monocytes 0.5 thou/uL (0.11-0.59); #Neutrophils 4.8 thou/uL (1.40-6.50); %Basophils 0.3 % (0.0-1.0); %Eosinophils 0.9 % (0.0-10.0); %Lymphocytes 19.7 % (21.0-51.0); %Monocytes 7.5 % (0.0-10.0); %Neutrophils 71.5 % (42.0-75.0); Hemoglobin 14.8 g/dL (14.0-18.0); Mean Corpuscular HGB CONC 32.3 g/dL (32.0-36.0); Mean Corpuscular Volume 89.8 fL (78.0-98.0); Mean Platelet Volume 10.6 fL (7.4-10.4); Platelet Count 128 thou/uL (130-400); RBC Distribution Width 13.7 % (11.5-14.5); Red Blood Cell (RBC) Count 5.11 mill/uL (4.70-6.10); White Blood Cell (WBC) Count 6.7 thou/uL (4.8-10.8)
[2020-09-08 19:09] LABS: Bacteria/HPF None Seen HPF (None Seen); Bilirubin Negative (Negative); Blood, Urine Negative (Negative); Clarity Clear (Clear); Glucose, Urine (Dipstick) Greater than 1000 mg/dL (Negative); Ketone, Urine Negative (Negative); Leukocyte 75 Leu/uL (Negative); Nitrite Negative (Negative); Protein, Urine (Dipstick) 20 mg/dL (Neg-Trace); RBC/HPF 0-3 HPF (0-3); Squamous Epithelial 0-3 HPF (0-3); Urobilinogen Normal mg/dL (Less than 2); WBC/HPF 21-50 HPF (0-3)
[2020-09-08 19:10] LABS: ALT (SGPT) 11 U/L (8-55); AST (SGOT) 18 U/L (5-34); Albumin 3.4 g/dL (3.5-5.0); Alkaline Phosphatase 84 U/L (40-110); Anion Gap 15 mmol/L (10-20); BUN (Urea Nitrogen) 26 mg/dL (8.4-25.7); Bilirubin, Total 0.8 mg/dL (0.2-1.2); Calc. Creatinine Clearance 0 mL/min (70-130); Calcium 8.9 mg/dL (7.8-10.44); Carbon Dioxide 27 mmol/L (22-29); Chloride 94 mmol/L (98-107); Globulin 4.9 g/dL (2.4-3.5); Glucose 439 mg/dL (70-105); Potassium 4.6 mmol/L (3.5-5.1); Protein, Total 8.3 g/dL (6.0-8.3); Sodium 131 mmol/L (136-145)
[2020-09-08] MEDS ORDERED: cefTRIAXone\\ROCEPHIN 1 GM VIAL ONE (19:25)
[2020-09-08] MEDS ORDERED: Insulin Regular 300 UNITS/3 ML VIAL ONE (20:22)
== END 2020-09-08 20:32 | disposition home or self-care (01) ==
LOC: ERS 17:43
DX: N39.0 Urinary tract infection, site not specified (principal); R55 Syncope and collapse; I10 Essential (primary) hypertension; Z86.19 Personal history of other infectious and parasitic diseases; Z79.899 Other long term (current) drug therapy; Z79.84 Long term (current) use of oral hypoglycemic drugs; Z79.82 Long term (current) use of aspirin
CPT/HCPCS: 36415; 36416; 71045; 80053; 81003; 81015; 82805; 83605; 83880; 84484; 85025; 87077; 87086; 87186; 93005; 96365; J0696; J1815

== ENCOUNTER 2022-01-23 18:59 | Emergency (ER) | payer MEDICARE, MEDICAID ==
[2022-01-23 20:08] LABS: #Eosinphils 0.1 thou/uL (0.0-0.7); #Lymphocytes 1.3 thou/uL (1.20-3.40); #Monocytes 0.5 thou/uL (0.11-0.59); #Neutrophils 3.1 thou/uL (1.40-6.50); %Basophils 0.8 % (0.0-1.0); %Lymphocytes 25.5 % (21.0-51.0); %Monocytes 9.1 % (0.0-10.0); %Neutrophils 62.7 % (42.0-75.0); Hemoglobin 13.3 g/dL (14.0-18.0); Mean Corpuscular HGB CONC 31.6 g/dL (32.0-36.0); Mean Corpuscular Hemoglobin 29.6 pg (27.0-31.0); Mean Corpuscular Volume 93.5 fl (78.0-98.0); Mean Platelet Volume 8.7 fL (7.4-10.4); Platelet Count 145 10x3/uL (130-400); RBC Distribution Width 14.2 % (11.5-14.5); Red Blood Cell (RBC) Count 4.51 mill/uL (4.70-6.10)
[2022-01-23 20:24] LABS: INR-International Normal Ratio 1.3; PTT 34.9 sec (22.9-36.1); Prothrombin Time 16.6 sec (12.0-14.7)
[2022-01-23 20:31] LABS: ALT (SGPT) 11 U/L (8-55); AST (SGOT) 20 U/L (5-34); Albumin 3.2 g/dL (3.4-4.8); Alkaline Phosphatase 93 U/L (40-110); Anion Gap 15 mmol/L (10-20); BUN (Urea Nitrogen) 31 mg/dL (8.4-25.7); Bilirubin, Total 0.6 mg/dL (0.2-1.2); Calc. Creatinine Clearance 0 mL/min (70-130); Calcium 8.6 mg/dL (7.8-10.44); Carbon Dioxide 25 mmol/L (23-31); Chloride 103 mmol/L (98-107); Estimated GFR 57; Globulin 4.1 g/dL (2.4-3.5); Glucose 109 mg/dL (80-115); Lipase 14 U/L (8-78); Potassium 4.5 mmol/L (3.5-5.1); Protein, Total 7.3 g/dL (5.8-8.1); Sodium 138 mmol/L (136-145)
[2022-01-23] MEDS ORDERED: Lidocaine 1% PF 5 ML VIAL ONE (21:43)
== END 2022-01-23 23:37 | disposition home or self-care (01) ==
LOC: ERS 18:59
DX: R18.8 Other ascites (principal); R06.00 Dyspnea, unspecified; I50.9 Heart failure, unspecified; I11.0 Hypertensive heart disease with heart failure; E11.9 Type 2 diabetes mellitus without complications; F17.210 Nicotine dependence, cigarettes, uncomplicated; Z79.82 Long term (current) use of aspirin; Z79.899 Other long term (current) drug therapy
CPT/HCPCS: 36415; 49083; 71045; 80053; 83690; 85025; 85610; 85730

== ENCOUNTER 2022-04-10 19:54 | Emergency (ER) | payer MEDICAID, MEDICARE ==
[2022-04-10 20:46] LABS: #Eosinphils 0.1 thou/uL (0.0-0.7); #Monocytes 0.4 thou/uL (0.11-0.59); #Neutrophils 2.9 thou/uL (1.40-6.50); %Basophils 0.9 % (0.0-1.0); %Eosinophils 1.9 % (0.0-10.0); %Lymphocytes 22.6 % (21.0-51.0); %Monocytes 9.8 % (0.0-10.0); %Neutrophils 64.8 % (42.0-75.0); Hemoglobin 13.2 g/dL (14.0-18.0); Mean Corpuscular HGB CONC 30.9 g/dL (32.0-36.0); Mean Corpuscular Hemoglobin 29.4 pg (27.0-31.0); Mean Corpuscular Volume 94.9 fl (78.0-98.0); Platelet Count 141 10x3/uL (130-400); RBC Distribution Width 15.8 % (11.5-14.5); Red Blood Cell (RBC) Count 4.51 mill/uL (4.70-6.10); White Blood Cell (WBC) Count 4.4 10x3/uL (4.8-10.8)
[2022-04-10 21:07] LABS: ALT (SGPT) 10 U/L (8-55); AST (SGOT) 19 U/L (5-34); Albumin 3.1 g/dL (3.4-4.8); Alkaline Phosphatase 138 U/L (40-110); Anion Gap 13 mmol/L (10-20); BUN (Urea Nitrogen) 34 mg/dL (8.4-25.7); Bilirubin, Total 1.1 mg/dL (0.2-1.2); Calc. Creatinine Clearance 0 mL/min (70-130); Calcium 8.4 mg/dL (7.8-10.44); Carbon Dioxide 28 mmol/L (23-31); Chloride 101 mmol/L (98-107); Estimated GFR 60; Globulin 4.5 g/dL (2.4-3.5); Glucose 120 mg/dL (80-115); Lipase 10 U/L (8-78); Magnesium 2.2 mg/dL (1.6-2.6); Potassium 4.7 mmol/L (3.5-5.1); Protein, Total 7.6 g/dL (5.8-8.1); Sodium 137 mmol/L (136-145)
[2022-04-10] MEDS ORDERED: Morphine 4 MG/ML VIAL ONE (21:16)
[2022-04-10] MEDS ORDERED: Furosemide 40 MG/4 ML VIAL ONE ×2 (21:35→21:36)
[2022-04-10 21:40] LABS: RBC Count-Automated (BF) 698 /cu.mm; WBC/Nucleated-Auto (BF) 146 /cu.mm
[2022-04-10 21:41] LABS: BF Color Yellow; Body Fluid Source Ascites Body Fluid; Clarity Clear (Clear); Tube # 1
[2022-04-10 22:19] LABS: Cell Count Non Hematic 78 %; Lymphocytes 22 %
== END 2022-04-10 23:23 | disposition home or self-care (01) ==
LOC: ERS 19:54
DX: R18.8 Other ascites (principal); E87.70 Fluid overload, unspecified; D72.829 Elevated white blood cell count, unspecified; I11.0 Hypertensive heart disease with heart failure; I50.9 Heart failure, unspecified; E11.9 Type 2 diabetes mellitus without complications; Z87.891 Personal history of nicotine dependence; Z79.899 Other long term (current) drug therapy; Z79.82 Long term (current) use of aspirin
CPT/HCPCS: 36415; 71045; 80053; 83690; 83735; 83880; 84484; 85025; 85060; 87070; 87205; 89051; 93005; 96374; 96375; J1940; J2270

== ENCOUNTER 2022-05-24 09:34 | Inpatient (IN) | payer OTHER, MEDICAID ==
[2022-05-24] MEDS ORDERED: Furosemide 40 MG/4 ML VIAL ONE (10:42)
[2022-05-24 11:04] LABS: #Eosinphils 0.1 thou/uL (0.0-0.7); #Lymphocytes 0.9 thou/uL (1.20-3.40); #Monocytes 0.3 thou/uL (0.11-0.59); #Neutrophils 2.7 thou/uL (1.40-6.50); %Basophils 0.6 % (0.0-1.0); %Eosinophils 1.4 % (0.0-10.0); %Lymphocytes 22.7 % (21.0-51.0); %Monocytes 7.4 % (0.0-10.0); %Neutrophils 67.9 % (42.0-75.0); Hemoglobin 14.1 g/dL (14.0-18.0); Mean Corpuscular HGB CONC 30.2 g/dL (32.0-36.0); Mean Corpuscular Hemoglobin 28.9 pg (27.0-31.0); Mean Corpuscular Volume 95.8 fl (78.0-98.0); Mean Platelet Volume 8.5 fL (7.4-10.4); Platelet Count 150 10x3/uL (130-400); RBC Distribution Width 15.3 % (11.5-14.5); Red Blood Cell (RBC) Count 4.88 mill/uL (4.70-6.10)
[2022-05-24 11:26] LABS: ALT (SGPT) 8 U/L (8-55); AST (SGOT) 18 U/L (5-34); Alkaline Phosphatase 121 U/L (40-110); Anion Gap 14 mmol/L (10-20); BUN (Urea Nitrogen) 21 mg/dL (8.4-25.7); Bilirubin, Total 1.2 mg/dL (0.2-1.2); Calc. Creatinine Clearance 0 mL/min (70-130); Calcium 8.6 mg/dL (7.8-10.44); Carbon Dioxide 29 mmol/L (23-31); Chloride 101 mmol/L (98-107); Estimated GFR 59; Globulin 5.2 g/dL (2.4-3.5); Glucose 90 mg/dL (80-115); Potassium 4.7 mmol/L (3.5-5.1); Protein, Total 8.2 g/dL (5.8-8.1); Sodium 139 mmol/L (136-145)
[2022-05-24] MEDS ORDERED: Labetalol HCl 100 MG/20 ML VIAL SLOW IVP PRN (13:41)
[2022-05-24] MEDS ORDERED: Dextrose 50% Abboject 50 ML SYRINGE SLOW IVP PRN (13:41)
[2022-05-24] MEDS ORDERED: HumaLOG 300 UNITS/3 ML VIAL SC PRN ×2 (13:41)
[2022-05-24] MEDS ORDERED: Ondansetron PF 4 MG/2 ML Vial IVP PRN (13:41)
[2022-05-24] MEDS ORDERED: hydrALAZINE 20 MG/ML VIAL SLOW IVP PRN (13:41)
[2022-05-24] MEDS ORDERED: Dextrose 5% in Water 1,000 ML IV PRN (13:41)
[2022-05-24] MEDS ORDERED: Ondansetron ODT 4 MG TAB PO PRN (13:41)
[2022-05-24] MEDS ORDERED: Acetaminophen 500 MG TAB PO PRN (13:41)
[2022-05-24 16:25] VITALS: BMI 34.2
[2022-05-24] MEDS: Furosemide 40 MG/4 ML VIAL SLOW IVP SCH (16:26)
[2022-05-24 16:55] LABS: Troponin I 0.011 ng/mL (< 0.028)
[2022-05-24 20:17] LABS: Troponin I Less than 0.010 ng/mL (< 0.028)
[2022-05-24] MEDS: Carvedilol 25 MG TAB PO SCH (21:24)
[2022-05-24] MEDS: Famotidine 20 MG TAB PO SCH (21:25)
[2022-05-24] MEDS: Sacubitril 24MG/Valsartan 26 MG TAB PO SCH (21:25)
[2022-05-25 04:46] LABS: #Eosinphils 0.1 thou/uL (0.0-0.7); #Lymphocytes 0.9 thou/uL (1.20-3.40); #Monocytes 0.4 thou/uL (0.11-0.59); #Neutrophils 2.7 thou/uL (1.40-6.50); %Basophils 0.4 % (0.0-1.0); %Eosinophils 1.5 % (0.0-10.0); %Lymphocytes 22.1 % (21.0-51.0); %Monocytes 9.9 % (0.0-10.0); %Neutrophils 66.2 % (42.0-75.0); Hemoglobin 13.6 g/dL (14.0-18.0); Mean Corpuscular Hemoglobin 29.7 pg (27.0-31.0); Mean Corpuscular Volume 95.6 fl (78.0-98.0); Mean Platelet Volume 9.4 fL (7.4-10.4); Platelet Count 138 10x3/uL (130-400); RBC Distribution Width 15.2 % (11.5-14.5); Red Blood Cell (RBC) Count 4.59 mill/uL (4.70-6.10); White Blood Cell (WBC) Count 4.1 10x3/uL (4.8-10.8)
[2022-05-25 05:04] LABS: ALT (SGPT) 7 U/L (8-55); AST (SGOT) 14 U/L (5-34); Albumin 2.6 g/dL (3.4-4.8); Alkaline Phosphatase 107 U/L (40-110); Anion Gap 14 mmol/L (10-20); BUN (Urea Nitrogen) 24 mg/dL (8.4-25.7); Bilirubin, Total 1.1 mg/dL (0.2-1.2); Calc. Creatinine Clearance 896 mL/min (70-130); Calcium 8.1 mg/dL (7.8-10.44); Carbon Dioxide 27 mmol/L (23-31); Chloride 103 mmol/L (98-107); Estimated GFR 68; Globulin 4.4 g/dL (2.4-3.5); Glucose 89 mg/dL (80-115); Magnesium 2.2 mg/dL (1.6-2.6); Potassium 4.5 mmol/L (3.5-5.1); Sodium 139 mmol/L (136-145)
[2022-05-25 05:05] LABS: Hemoglobin A1c 6.1 % (4.0-6.0)
[2022-05-25] MEDS: Furosemide 40 MG/4 ML VIAL SLOW IVP SCH ×2 (05:47→13:26)
[2022-05-25] MEDS ORDERED: Amlodipine 5 MG TAB PO SCH (09:00)
[2022-05-25] MEDS: Empagliflozin 10 MG TAB PO SCH (10:50)
[2022-05-25] MEDS: Spironolactone 25 MG TAB PO SCH (10:51)
[2022-05-25] MEDS: Carvedilol 25 MG TAB PO SCH ×2 (10:52→20:52)
[2022-05-25] MEDS: Aspirin 81 mg Enteric Coated Tablet PO SCH (10:52)
[2022-05-25] MEDS: Famotidine 20 MG TAB PO SCH ×2 (10:52→20:52)
[2022-05-25] MEDS: Sacubitril 24MG/Valsartan 26 MG TAB PO SCH ×2 (10:53→20:52)
[2022-05-25] MEDS: Losartan 25 MG TAB PO SCH (10:53)
[2022-05-25] MEDS ORDERED: Albumin 25% 25 GM/100 ML BOT IVPB SCH (11:00)
[2022-05-25 11:19] LABS: INR-International Normal Ratio 1.6; PTT 39.5 sec (22.9-36.1); Prothrombin Time 19.5 sec (12.0-14.7)
[2022-05-25] MEDS ORDERED: Sodium Bicarbonate 2.5 MEQ/5 ML VIAL ONE (14:40)
[2022-05-25] MEDS ORDERED: Lidocaine 1% PF 5 ML VIAL ONE (14:40)
[2022-05-25 16:03] LABS: RBC Count-Automated (BF) 78 /cu.mm; WBC/Nucleated-Auto (BF) 67 /cu.mm
[2022-05-25 16:49] LABS: BF Color Yellow; Body Fluid Source Ascites Body Fluid; Clarity Clear (Clear); Tube # EDTA
[2022-05-25 16:50] LABS: BF Segmented Neutrophils 1 %; Cell Count Non Hematic 78 %; Lymphocytes 21 %
[2022-05-25] MEDS: Albumin 25% 25 GM/100 ML BOT IVPB SCH (18:34)
[2022-05-26] MEDS: Albumin 25% 25 GM/100 ML BOT IVPB SCH ×3 (00:59→11:27)
[2022-05-26 04:18] LABS: #Eosinphils 0.1 thou/uL (0.0-0.7); #Lymphocytes 0.9 thou/uL (1.20-3.40); #Monocytes 0.4 thou/uL (0.11-0.59); #Neutrophils 2.2 thou/uL (1.40-6.50); %Basophils 0.4 % (0.0-1.0); %Eosinophils 2.1 % (0.0-10.0); %Lymphocytes 24.6 % (21.0-51.0); %Monocytes 10.2 % (0.0-10.0); %Neutrophils 62.7 % (42.0-75.0); Hemoglobin 13.2 g/dL (14.0-18.0); Mean Corpuscular HGB CONC 30.7 g/dL (32.0-36.0); Mean Corpuscular Hemoglobin 29.4 pg (27.0-31.0); Mean Corpuscular Volume 95.8 fl (78.0-98.0); Platelet Count 136 10x3/uL (130-400); RBC Distribution Width 14.9 % (11.5-14.5); Red Blood Cell (RBC) Count 4.47 mill/uL (4.70-6.10); White Blood Cell (WBC) Count 3.5 10x3/uL (4.8-10.8)
[2022-05-26 04:35] LABS: Anion Gap 13 mmol/L (10-20); BUN (Urea Nitrogen) 28 mg/dL (8.4-25.7); Calc. Creatinine Clearance 827 mL/min (70-130); Calcium 8.2 mg/dL (7.8-10.44); Carbon Dioxide 30 mmol/L (23-31); Chloride 102 mmol/L (98-107); Estimated GFR 62; Glucose 135 mg/dL (80-115); Potassium 4.7 mmol/L (3.5-5.1); Sodium 140 mmol/L (136-145)
[2022-05-26] MEDS: Furosemide 40 MG/4 ML VIAL SLOW IVP SCH ×2 (05:51→14:27)
[2022-05-26] MEDS: Spironolactone 25 MG TAB PO SCH (08:32)
[2022-05-26] MEDS: Sacubitril 24MG/Valsartan 26 MG TAB PO SCH (08:32)
[2022-05-26] MEDS: Aspirin 81 mg Enteric Coated Tablet PO SCH (09:52)
[2022-05-26] MEDS: Carvedilol 25 MG TAB PO SCH (09:52)
[2022-05-26] MEDS: Losartan 25 MG TAB PO SCH (09:53)
[2022-05-26] MEDS: Famotidine 20 MG TAB PO SCH ×2 (09:54→21:21)
[2022-05-26] MEDS: Empagliflozin 10 MG TAB PO SCH (09:55)
[2022-05-26] MEDS ORDERED: Sacubitril 24MG/Valsartan 26 MG TAB PO SCH (21:00)
[2022-05-26] MEDS ORDERED: Carvedilol 6.25 MG TAB PO SCH (21:00)
[2022-05-26] MEDS: Atorvastatin Calcium 40 MG TAB PO SCH (21:22)
[2022-05-26] MEDS: Carvedilol 6.25 MG TAB PO SCH (21:22)
[2022-05-27] MEDS: Furosemide 40 MG/4 ML VIAL SLOW IVP SCH ×2 (06:26→13:44)
[2022-05-27] MEDS: Spironolactone 25 MG TAB PO SCH (08:23)
[2022-05-27] MEDS: Carvedilol 6.25 MG TAB PO SCH ×2 (09:15→21:33)
[2022-05-27] MEDS: Aspirin 81 mg Enteric Coated Tablet PO SCH (09:15)
[2022-05-27] MEDS: Famotidine 20 MG TAB PO SCH ×2 (09:16→21:34)
[2022-05-27] MEDS: Sacubitril 24MG/Valsartan 26 MG TAB PO SCH ×2 (10:38→21:33)
[2022-05-27] MEDS: Empagliflozin 10 MG TAB PO SCH (10:38)
[2022-05-27] MEDS: Atorvastatin Calcium 40 MG TAB PO SCH (21:33)
[2022-05-28 04:27] LABS: #Eosinphils 0.1 thou/uL (0.0-0.7); #Monocytes 0.4 thou/uL (0.11-0.59); #Neutrophils 2.5 thou/uL (1.40-6.50); %Eosinophils 1.4 % (0.0-10.0); %Lymphocytes 24.5 % (21.0-51.0); %Monocytes 10.4 % (0.0-10.0); %Neutrophils 62.8 % (42.0-75.0); Hemoglobin 14.1 g/dL (14.0-18.0); Mean Corpuscular HGB CONC 30.9 g/dL (32.0-36.0); Mean Corpuscular Hemoglobin 29.5 pg (27.0-31.0); Mean Corpuscular Volume 95.3 fl (78.0-98.0); Platelet Count 142 10x3/uL (130-400); Red Blood Cell (RBC) Count 4.77 mill/uL (4.70-6.10); White Blood Cell (WBC) Count 3.9 10x3/uL (4.8-10.8)
[2022-05-28 04:40] LABS: Anion Gap 12 mmol/L (10-20); BUN (Urea Nitrogen) 31 mg/dL (8.4-25.7); Calc. Creatinine Clearance 72 mL/min (70-130); Calcium 8.3 mg/dL (7.8-10.44); Carbon Dioxide 30 mmol/L (23-31); Chloride 98 mmol/L (98-107); Estimated GFR 56; Glucose 138 mg/dL (80-115); Potassium 4.3 mmol/L (3.5-5.1); Sodium 136 mmol/L (136-145)
[2022-05-28] MEDS: Furosemide 40 MG/4 ML VIAL SLOW IVP SCH (05:43)
[2022-05-28] MEDS: Famotidine 20 MG TAB PO SCH (09:32)
[2022-05-28] MEDS: Sacubitril 24MG/Valsartan 26 MG TAB PO SCH (09:32)
[2022-05-28] MEDS: Aspirin 81 mg Enteric Coated Tablet PO SCH (09:32)
[2022-05-28] MEDS: Empagliflozin 10 MG TAB PO SCH (09:32)
[2022-05-28] MEDS: Spironolactone 25 MG TAB PO SCH (09:33)
[2022-05-28] MEDS: Carvedilol 6.25 MG TAB PO SCH (09:34)
[2022-05-28 11:36] VITALS: BP 103/61; TEMP 97.4
== END 2022-05-28 12:30 | disposition home or self-care (01) | DRG 432 ==
LOC: ERS 09:34 → ERHOLD 13:04 → 2NO 15:42
PROVIDERS: ADMIT Family Medicine; ATTEND Hospitalist
PROC: 0W9G3ZZ Drainage of Peritoneal Cavity, Percutaneous Approach (ICD-10-PCS; principal; 2022-05-25)
DX: K74.60 Unspecified cirrhosis of liver (principal); I50.23 Acute on chronic systolic (congestive) heart failure; J96.01 Acute respiratory failure with hypoxia; I13.0 Hypertensive heart and chronic kidney disease with heart failure and stage 1 through stage 4 chronic kidney disease, or unspecified chronic kidney disease; R18.8 Other ascites; B18.1 Chronic viral hepatitis B without delta-agent; I42.8 Other cardiomyopathies; N18.2 Chronic kidney disease, stage 2 (mild); E78.5 Hyperlipidemia, unspecified; E66.9 Obesity, unspecified; E11.22 Type 2 diabetes mellitus with diabetic chronic kidney disease; Z79.82 Long term (current) use of aspirin; Z79.899 Other long term (current) drug therapy; Z88.0 Allergy status to penicillin; Z68.31 Body mass index [BMI] 31.0-31.9, adult
CPT/HCPCS: 36415; 36416; 49083; 71045; 76700; 80048; 80053; 82105; 83036; 83735; 83880; 84484; 85025; 85060; 85610; 85730; 87070; 87205; 89051; 93005; 93306; 93798; 96374; J1940; P9047

== ENCOUNTER 2022-06-27 08:05 | Day surgery (SDC) | payer OTHER ==
[2022-06-23 14:55] VITALS: BMI 31.6
[~2022-06-27 08:05] MED LIST changes: -Fentanyl 100 MCG/2 ML VIAL ONE; +fentaNYL 50 mcg/mL 1 mL Vial ONE
[2022-06-27] MEDS ORDERED: Cyclopentolate 1% Opth Drop 2 ML BOT ONE (09:16)
[2022-06-27] MEDS ORDERED: Phenylephrine 10% OPTH 5 ML BOT ONE (09:17)
== END 2022-06-27 10:18 | disposition home or self-care (01) ==
LOC: SDC 08:05
PROVIDERS: ATTEND Ophthalmology Retina Specialist
DX: H43.12 Vitreous hemorrhage, left eye (principal); Z53.09 Procedure and treatment not carried out because of other contraindication; Z79.84 Long term (current) use of oral hypoglycemic drugs; Z79.899 Other long term (current) drug therapy; Z88.0 Allergy status to penicillin
CPT/HCPCS: J0171; J2250; J3010